=== PATIENT | male | born 1950 | race Caucasian/White ===

== ENCOUNTER → 2024-04-25 | Outpatient (CLI) | payer MEDICARE, SELFPAY ==
[2024-04-25 20:39] LABS: AST(SGOT) 29 U/L (15-37); Alanine Aminotransfer ALT/SGPT 31 U/L (16-61); Albumin, Serum 3.8 g/dL (3.2-5.0); Alkaline Phosphatase 78 U/L (45-117); Anion Gap 5 (5-15); BUN 17 mg/dL (7-18); BUN/Creat Ratio 13.4 RATIO (10-20); Chloride 105 mmol/L (98-107); Cholesterol 170 mg/dL (200); Creatinine, Serum 1.27 mg/dL (0.70-1.30); EST Glomerular Filtration Rate 59 mL/min (>60); Est Glom Filt Rate - Afr Amer 71 mL/min (>60); Globulin 3.8 g/dL (2.2-4.2); Glucose 93 mg/dL (74-106); High Density Lipoprotein 73 mg/dL; Potassium 4.6 mmol/L (3.5-5.1); Protein, Total 7.6 g/dL (6.4-8.2); Sodium Level 137 mmol/L (136-145); Triglycerides 159 mg/dL; Very Low Density Lipoprotein 32 mg/dL (5-40)
== END | disposition home or self-care (01) ==
LOC: MFPLAB 09:41
PROVIDERS: PCP Family Medicine; Referring Provider Family Medicine; Visit Provider Family Medicine
DX: Z00.00 Encounter for general adult medical examination without abnormal findings (principal); E78.5 Hyperlipidemia, unspecified; Z12.5 Encounter for screening for malignant neoplasm of prostate
CPT/HCPCS: 36415; 80053; 80061; 84153; G0103

== ENCOUNTER → 2024-05-12 | Outpatient (CLI) | payer MEDICARE, SELFPAY ==
[2024-05-15 08:08] LABS: PSA, Free 3.99 ng/mL; PSA, Free % 25.4 % (.)
== END | disposition home or self-care (01) ==
LOC: LAB 14:03
PROVIDERS: PCP Family Medicine; Referring Provider Nurse Practitioner; Visit Provider Nurse Practitioner
DX: R97.20 Elevated prostate specific antigen [PSA] (principal)
CPT/HCPCS: 36415; 84153; 84154

== ENCOUNTER 2024-06-07 16:47 | Outpatient (CLI) | payer MEDICARE, SELFPAY ==
--- NOTE | 2024-06-07 08:00 | PROSBIL_PTH ---
PATIENT: DELMI BERGER LOC: [facility] U#:[id number] AGE/SX: 73/M ROOM: RE06/07/[address]: Dr. Lenny Herndon MD : [id number] BED: DIS: 06/07/2024 SPEC #: [id number] RECD: 06/08/24 08:58 STATUS: VERA ERI #: [id number] LUTHER: 06/07/24 08:[address]: Lenny Herndon DEPT: SURGICAL PATHOLOGY RECD BY: Rolando Garcia ENTERED: 06/08/24 08:58 SP TYPE: PROST BX MAXIMO DR: Dr. Sherwin Nichols MD Tissues: A - PROSTATE RIGHT B - PROSTATE RIGHT C - PROSTATE LEFT D - PROSTATE LEFT Procedures: PROSTATE BX HEADER OPERATION: Prostate biopsy PRE-OP DIAGNOSIS: Elevated PSA TISSUE SUBMITTED: A - Right mid, B - Right base, C -Left mid, D- Left base MICROSCOPIC DIAGNOSIS A. Prostate, right mid, biopsy: - Benign prostate tissue. B. Prostate, right base, biopsy: - Benign prostate tissue. C. Prostate, left mid, biopsy: - Benign prostate tissue. D. Prostate, left base, biopsy: - Benign prostate tissue. MICROSCOPIC DESCRIPTION Slides are reviewed. GROSS DESCRIPTION A. Received in formalin in a container labeled with the patient's name, date of , and right mid is a 1.1 x 0.1 cm white-castillo and wispy core biopsy of soft tissue. Submitted in toto in A1. B. Received in formalin in a container labeled with the patient's name, date of , and right base is a 1.5 x 0.1 cm white-castillo and wispy core biopsy of soft tissue. Submitted in toto in B1. C. Received in formalin in a container labeled with the patient's name, date of , and left mid are 2 white-castillo, wispy core biopsies of soft tissue measuring 0.9 x 0.1 cm and 1.2 x 0.1 cm. Submitted in toto in C1. D. Received in formalin in a container labeled with the patient's name, date of , and left base is a 1.3 x 0.1 cm white-castillo and wispy core biopsy of soft tissue. Submitted in toto in D1. [facility] 06-08-2024 CPT:74238q6
== END 2024-06-07 23:59 | disposition home or self-care (01) ==
LOC: LABSPEC 16:48
PROVIDERS: PCP Family Medicine; Referring Provider Urology; Visit Provider Urology
DX: N40.0 Benign prostatic hyperplasia without lower urinary tract symptoms (principal)
CPT/HCPCS: 88305; G0416

== ENCOUNTER → 2024-07-29 | Outpatient (CLI) | payer MEDICARE, SELFPAY ==
[2024-07-29 10:56] LABS: Absolute Lymphocyte Count 0.97 X10^3/uL (0.83-4.51); Basophil# 0.04 X10^3/uL; Basophil% 0.7 % (0-1); Eosinophil# 0.18 X10^3/uL; Eosinophils% 3.2 % (0-5); Hematocrit 43.2 % (40-54); Hemoglobin 14.8 g/dL (13.0-16.5); Lymphocyte # 0.97 X10^3/ul (0.83-4.51); Mean Corp Hgb Conc 34.3 g/dL (32-36); Mean Corpuscular Volume 90.4 fL (80-94); Mean Platelet Vol. 9.6 fl (6.2-12.0); Monocyte% 8.8 % (0-10); NRBC Flagged by Analyzer 0 % (0-5); Neutrophil % 70.1 % (47-70); Platelet Count 161 K/mm3 (150-450); RBC Distribution Width CV 13.6 % (11.6-14.6); RBC Distribution Width SD 45.6 fl (35.1-43.9); Red Blood Count 4.78 M/mm3 (4.6-6.2); White Blood Count 5.7 K/mm3 (4.4-11.0)
[2024-07-29 11:27] LABS: ALB/GLOB Ratio 1.5 RATIO (0.9-2.4); AST(SGOT) 32 U/L (<=37); Alanine Aminotransfer ALT/SGPT 23 U/L (<=46); Albumin, Serum 4.3 g/dL (3.4-4.8); Alkaline Phosphatase 73 U/L (40-129); Anion Gap 9 (5-15); BUN 18 mg/dL (4-19); BUN/Creat Ratio 13.4 RATIO (10-20); Calcium,Total 9.3 mg/dL (7.6-11.0); Carbon Dioxide 22.5 mmol/L (21.0-32.0); Chloride 101 mmol/L (98-108); Cholesterol 162 mg/dL (<=200); Creatinine, Serum 1.31 mg/dL (0.70-1.20); EST Glomerular Filtration Rate 56 (>60); Globulin 2.8 g/dL (2.2-4.2); Glucose 111 mg/dL (70-99); High Density Lipoprotein 67 mg/dL; Low Density Lipoprotein Calc. 69 mg/dL; Potassium 4.8 mmol/L (3.3-5.1); Protein, Total 7.2 g/dL (5.9-8.4); Sodium Level 133 mmol/L (133-145); Total Bilirubin 0.62 mg/dL (0.00-1.30); Triglycerides 131 mg/dL; Very Low Density Lipoprotein 26 mg/dL (5-40); cholesterol:hdl ratio screen 2.41
== END | disposition home or self-care (01) ==
LOC: MFPLAB 08:58
PROVIDERS: PCP Family Medicine; Visit Provider Family Medicine
DX: Z01.818 Encounter for other preprocedural examination (principal); E78.5 Hyperlipidemia, unspecified
CPT/HCPCS: 36415; 80053; 80061; 85025

== ENCOUNTER → 2024-08-11 | Outpatient (CLI) | payer MEDICARE, SELFPAY ==
--- NOTE | 2024-08-11 16:05 | RAD_ITS ---
PROCEDURE: CHEST PA AND LATERAL 08/11/2024 REASON FOR EXAM: PRE OP EXAMINATION TECHNIQUE: Frontal and lateral views of the chest. COMPARISON: None. FINDINGS: The lungs are expanded. There is no demonstrated parenchymal abnormality. There is no demonstrated pleural abnormality. Enlarged cardiac silhouette. Normal mediastinum and uriel. Normal visualized pulmonary arteries. Atheromatous plaques of the visualized aortic arch and descending thoracic aorta. Diffuse spondylosis of the visualized thoracic spine. Normal visualized ribs, clavicles. Degenerative joint disease. There is no demonstrated abnormality of the visualized soft tissue structures of the upper abdomen. RAD/Chest PA and Lateral IMPRESSION: No evidence for acute abnormality. Reading Location: [facility]
[2024-08-11 18:04] LABS: Anion Gap 13 (5-15); BUN 19 mg/dL (4-19); BUN/Creat Ratio 14.2 RATIO (10-20); Calcium,Total 9.1 mg/dL (7.6-11.0); Carbon Dioxide 22.3 mmol/L (21.0-32.0); Chloride 104 mmol/L (98-108); Creatinine, Serum 1.34 mg/dL (0.70-1.20); EST Glomerular Filtration Rate 55 (>60); Glucose 133 mg/dL (70-99); Sodium Level 139 mmol/L (133-145)
[2024-08-11 18:16] LABS: International Normalized Ratio 1.1; Prothrombin Time (Protime)PT. 14.5 SECONDS (11.7-14.9)
[2024-08-11 18:17] LABS: Partial Thromboplast Time 38.4 Seconds (24.1-36.2)
[2024-08-11 20:30] LABS: Specific Gravity, Urine 1.025 (1.002-1.030)
--- OUTSIDE RECORDS SUMMARY | 2024-08-11 21:24 | XMS RPT_ITS | CCD ---
Author Organization [facility] Care Team Providers Care Nuclear Design Engineer Name Role Phone Sherwin Pollock Unavailable [phone] Mary Busby Unavailable Mary Busby Primary Care Provider Mary Busby Unavailable Mary Busby Primary Care Provider Mary Busby Unavailable Mary Busby MD Primary Care Provider Mary Busby MD Unavailable [phone] Mary Busby MD Unavailable Sherwin Nichols MD Primary Care Provider [phone] Mary Busby MD Unavailable Mary Busby MD Unavailable Sherwin Nichols MD Primary Care Provider [phone] Mary Busby MD Unavailable Sherwin Nichols MD Primary Care Provider ANGELICA RESENDIZ DO Consulting Unavailable SIMONE R~[id number], SIMONE COURTNEY Primary Care Unavailable VALENTIN MERCADO~[id number], VALENTIN Marshall Attending Unavailable VALENTIN MERCADO~[id number], VALENTIN Marshall Admitting Unavailable ANGELICA RESENDIZ DO Consulting Unavailable SHERWIN CORNELIUS Consulting Unavailable SHERWIN CORNELIUS Consulting Unavailable ANGELICA RESENDIZ DO Consulting Unavailable SIMONE Powell~[id number], SIMONE COURTNEY Primary Care Unavailable SRIRAM YAN DR~[id number] GOOD Hassan Attending Unavailable SRIRAM YAN DR~[id number] GOOD Hassan Admitting Unavailable ANGELICA RESENDIZ DO Consulting Unavailable SRIRAM YAN, DR GOOD Hassan Consulting Unavaildyllan BHATIA MD, DR GOOD Hassan Consulting UnavailSHERWIN Woods Consulting Unavailable SIMONE R, SHERWIN Consulting Unavailable NADIA VANG APRN Consulting Unavailable BIRGIT YAN~[id number], BIRGIT Gomez Attending Unavailable BIRGIT YAN~[id number], BIRGIT Gomez Admitting Unavailable NONE NONE, NONE~[id number] NONE Primary Care Unavailable NADIA VANG APRN Consulting Unavailable ANGELICA RESENDIZ DO Consulting Unavailable ANGELICA RESENDIZ DO Consulting Unavailable SORTO DO, MICHAEL K Consulting Unavailable SORTO DO, MICHAEL K Consulting Unavailable NONE NONE, NONE~[id number] NONE Consulting Unavailable NONE, NONE Consulting Unavailable CINTHIA YAN, DR SANTAMARIA Consulting Unavailable CINTHIA YAN, DR SANTAMARIA Consulting Unavailable KATIE YAN, GARIMA Consulting Unavailable KATIE YAN, GARIMA Consulting Unavailable ISABELLA GENAO MD Consulting Unavailable ISABELLA GENAO MD Consulting Unavailable HO LYLES MD Consulting Unavailable HO LYLES MD Consulting Unavailable ANA HAMILTON MD Consulting Unavailable NICHOLS R~[id number], SIMONE COURTNEY Attending Unavailable NICHOLS R~[id number], SIMONE COURTNEY Primary Care Unavailable NICHOLS R~[id number], SIMONE COURTNEY Admitting Unavailable ANA HAMILTON MD Consulting Unavailable NICHOLS RSHERWIN Consulting Unavailable NICHOLS R, SHERWIN Consulting Unavailable NICHOLS R~[id number], SIMONE COURTNEY Primary Care Unavailable JAKE YAN~[id number], JAKE Jefferson Admitting Unavailable JAKE YAN~[id number], JAKE Jefferson Attending Unavailable SIMONE R, SHERWIN Consulting Unavailable NICHOLS R, SHERWIN Consulting Unavailable ANGELICA RESENDIZ DO Consulting Unavailable NICHOLS R~[id number], SIMONE COURTNEY Primary Care Unavailable SRIRAM YAN DR~[id number] GOOD Hassan Admitting Unavailable SRIRAM YAN DR~[id number] GOOD Hassan Attending Unavailable ANGELICA RESENDIZ DO Consulting Unavailable SRIRAM YAN, DR GOOD Hassan Consulting Unavaildyllan BHATIA MD, DR GOOD Hassan Consulting Unavaildyllan e SIMONE RSHERWIN Consulting Unavailable NICHOLS R, SHERWIN Consulting Unavailable DAVID YAN, VALERIE FATIMA Consulting Hali SHELTON MD, VALERIE FATIMA Consulting Hali Nichols MD, Dr. Courtney Primary Care Provider Simone YAN, Dr. Courtney Attending Provider Simone YAN, Dr. Courtney Referring Provider [phone] Simone YAN, Dr. Courtney Primary Care Provider Simone YAN, Dr. Courtney Attending Provider Simone YAN, Dr. Courtney Referring Provider Boutte, Magalie Attending Provider Boutte, Magalie Referring Provider SYSTEM, PROVIDER NOT IN Referring Unavaila ble SYSTEM, PROVIDER NOT IN Admitting Unavaila ble SHERWIN NICHOLS Primary Care Unavailable Yanick YAN, Dr. Lenny Nuñez Attending Provider [phone] Yanick YAN, Dr. Lenny Nuñez Referring Provider [phone] Simone YAN, Sherwin Powell Primary Care Provider [phone] Angelica Resendiz DO Unavailable Angelica Resendiz DO Unavailable [phone] SUNIL DELACRUZ Attending Unavailable SELF, SELF Referring Unavailable KRYS DELACRUZATORWard Hall Attending Unavailable SUNIL DELACRUZ Referring Unavailable NICHOLSSHERWIN DEAN Primary Care Unavailable SUNIL DELACRUZ Admitting Unavailable SUNIL DELACRUZ Attending Unavailable SELF, SELF Referring Unavailable ENLIV GOFFSHUA TMark Referring Unavailable AMRIK GUZMAN Attending Unavailable SHERWIN NICHOLS Primary Care Unavailable Nichols, Sherwin Primary Care Unavailable Nichols, Sherwin Attending Unavailable Nichols, Sherwin Referring Unavailable Nichols, Sherwin Primary Care Unavailable BoutteMagalie Attending Unavailable BoutteMagalie Referring Unavailable Lenny Herndon Attending Unavailable Lenny Herndon Referring Unavailable Nichols, Sherwin Primary Care Unavailable Nichols, Sherwin Primary Care Unavailable Nichols, Sherwin Attending Unavailable NICHOLSSHERWIN Primary Care Unavailable PEGGY JONES Attending Unavail able PEGGY JONES Admitting Unavail able IVETTE PULIDO Attending Unavailable NICHOLS, SHERWIN ANGELICA Primary Care Unavailable IVETTE PULIDO Attending Unavailable SHERWIN NICHOLS Primary Care Unavailable BOSTON HERRERA Attending Unavailable SHERWIN NICHOLS Primary Care Unavailable SATHYA OSORIO Attending Unavailable SHERWIN NICHOLS Primary Care Unavailable IVETTE PULIDO Attending Unavailable SHERWIN NICHOLS Primary Care Unavailable Allergies Allergy Classification Reported Allergen(s) Allergy Type Date of Onset Reaction(s) Facility (20 sources) Penicillins; Translations: [PENICILLINS] Propensity to adverse reactions to drug 6 Hives [facility] (2 sources) Penicillins Propensity to adverse reactions to drug 9 [facility] (20 sources) atorvastatin; Translations: [ATORVASTATIN] Drug Allergy 6 Unknown, Other (See Comments) [facility] (13 sources) Penicillins Propensity to adverse reactions to drug 9 Itching [facility] (1 source) atorvastatin Drug Allergy 6 [facility] (1 source) Penicillins Drug allergy (disorder) 9 [facility] (5 sources) Penicillins Propensity to adverse reactions to drug 9 Itching [facility] (1 source) Penicillins Drug allergy (disorder) 6 [facility] Medications Current Medications Medication Drug Class(es) Dates Sig (Normalized) Sig (Original) acetaminophen 325 mg / HYDROcodone bitartrate 5 mg oral tablet (10 sources) Opioid Agonist Start: 03-28-2022 HYDROcodone-acetam inophen (NORCO) 5-325 mg per tablet Indications: Post-op pain Take 1-2 tablets every 6 hours as needed for pain. . 56 tablet 03/28/2022 Active Start: 03-22-2022 End: 03-28-2022 HYDROcodone-acetaminophen (N ORCO) 5-325 mg per tablet Indications: Acute post-operative pain Take 1 (one) tablet to 2 (two) tablets by mouth every 6 (six) hours as needed for pain (Days supply per fill: 7) . 56 tablet 0 03/22/2022 03/28/2022 Discontinued (Availability) acetaminophen 325 mg / oxyCODONE hydrochloride 5 mg oral tablet (8 sources) Opioid Agonist Start: 02-11-2019 End: 02-16-2019 take 1 tablet by mouth every six hours as needed for pain, then take 5 tablets by mouth as needed for pain oxyCODONE-acetaminophen (PERCOCET) 5-325 mg per tablet Indications: Post-op pain , Right groin pain Take 1 (one) tablet by mouth every 6 (six) hours as needed for pain (Days supply per fill: 5) . 15 tablet 0 02/11/2019 02/16/2019 Active Start: 07-15-2015 End: 02-11-2019 Oxycodone-Acetaminophen 1 TA BLET tablet Active 1 - 2 {tbl} PO EVERY 4 HOURS NEEDED as needed for Pain July 19, 2015 12:00am amLODIPine 10 mg oral tablet (20 sources) Dihydropyridine Calcium Channel Mary take 1 tablet by mouth once daily in the morning amLODIPine (NORVASC) 10 MG tablet Take 1 (one) tablet (10 mg total) by mouth every morning . Active take 1 tablet by mouth once durga y amLODIPine 5 MG tablet Take 1 tablet by mouth daily. Active amLODIPine 5 mg / benazepril hydrochloride 10 mg oral capsule (3 sources) Dihydropyridine Calcium Channel Mary, Angiotensin Converting Enzyme Inhibitor Start: 07-19-2015 Amlodipine-Benazepril 1 EACH capsule Active 1 NMA PO DAILY July 19, 2015 12:00am apixaban 2.5 mg oral tablet (2 sources) Factor Xa Inhibitor Start: 12-08-2020 take 1 tablet by mouth every twelve hours apixaban 2.5 MG tablet Indications: post pci per Dr Bhatia not for atrial fibrillation Take 1 tablet by mouth every 12 hours. 60 tablet 12/08/2020 Active ascorbic acid 1000 mg oral tablet (17 sources) Vitamin C take 1 tablet by mouth once daily in the morning ascorbic acid, vitamin C, (VITAMIN C) 1000 MG tablet Take 1 (one) tablet (1,000 mg total) by mouth every morning . Active take 2 tablets by mouth once geovanna ly ascorbic acid 500 MG tablet Take 1,000 mg by mouth daily. Active aspirin 81 mg chewable tablet (20 sources) Nonsteroidal Anti-inflammatory Drug Start: 07-19-2015 End: 05-03-2022 take 1 tablet by mouth once daily Aspirin 81 MG tablet,chewable Active 81 mg PO DAILY@0800 July 19, 2015 12:00am End: 02-11-2019 take 1 tablet by mouth once daily aspirin 81 MG EC tablet Take 81 mg by mouth daily . 0 02/11/2019 Discontinued (Stop Taking at Discharge) cholecalciferol 0.05 mg oral tablet (15 sources) Vitamin D take 1 tablet by mouth once daily in the morning cholecalciferol, vitamin D3, 50 mcg (2,000 unit) Tab Take 1 (one) tablet (2,000 Units total) by mouth every morning . Active ciprofloxacin 500 mg oral tablet (1 source) Quinolone Antimicrobial Start: End: take 1 tablet by mouth every twelve hours ciprofloxacin HCl (CIPRO) 500 MG tablet Take 500 mg by mouth every 12 (twelve) hours . 0 06/24/2018 08/24/2018 Active clopidogrel 75 mg oral tablet (20 sources) P2Y12 Platelet Inhibitor Start: End: take 1 tablet by mouth once daily in the morning clopidogreL (PLAVIX) 75 mg tablet Take 1 (one) tablet (75 mg total) by mouth every morning Start: 04/03/22. 30 tablet 04/03/2022 Active docusate sodium 50 mg / sennosides, mcfp 8.6 mg oral tablet (2 sources) Start: End: take 1 tablet by mouth twice daily senna-docusate (SENNA-S) 8.6-50 mg Take 1 (one) tablet by mouth 2 (two) times a day . 60 tablet 0 03/22/2022 04/21/2022 Active doxycycline hyclate 100 mg oral capsule (3 sources) Tetracycline-class Drug Start: take 1 capsule by mouth twice daily Doxycycline Hyclate 100 MG capsule Active 100 mg PO TWICE A DAY July 15, 2015 12:00am escitalopram 10 mg oral tablet (20 sources) Serotonin Reuptake Inhibitor take 1 tablet by mouth once daily in the morning escitalopram oxalate (LEXAPRO) 10 MG tablet Take 1 (one) tablet (10 mg total) by mouth every morning . Active famotidine 20 mg oral tablet (3 sources) Histamine-2 Receptor Antagonist Start: take 1 tablet by mouth once daily Famotidine 20 MG tablet Active 20 mg PO DAILY July 19, 2015 12:00am lisinopril 10 mg oral tablet (20 sources) Angiotensin Converting Enzyme Inhibitor Start: take 1 tablet by mouth once daily Lisinopril 10 MG tablet Active 10 mg PO DAILY July 19, 2015 12:00am LORazepam 0.5 mg oral tablet (3 sources) Benzodiazepine Start: take 1 tablet by mouth three times daily as needed for anxiety Lorazepam 0.5 MG tablet Active 0.5 mg PO THREE TIMES A DAY as needed for Anxiety July 19, 2015 10:56pm lutein 10 mg oral tablet (2 sources) Lutein 10 MG tab let Take by mouth. Active magnesium oxide 400 mg oral tablet (17 sources) take 1 tablet by mouth once daily in the morning magnesium oxide (MAG-OX) 400 mg (241.3 mg magnesium) tablet Take 1 (one) tablet (400 mg total) by mouth every morning . Active 24 hr metoprolol succinate 25 mg extended release oral tablet (20 sources) beta-Adrenergic Mary Start: Metoprolol Succinate 25 MG tablet Active 12.5 mg PO DAILY July 19, 2015 12:00am take 1 tablet by shelia th once daily in the morning metoprolol succinate (TOPROL-XL) 25 MG 2 4 hr tablet Take 1 (one) tablet (25 mg total) by mouth every morning . Active nitroglycerin 0.4 mg sublingual tablet (4 sources) Nitrate Vasodilator Start: 12-08-2020 nitroGLYCERIN 0.[address] 1 tablet under tongue every 5 minutes as needed for Chest pain. max = 3 doses. If CP persists after 1st dose, call 911 25 tablet 1 12/08/2020 Active NONFORMULARY (6 sources) take 1 tablet by mouth once daily in the morning NONFORMULARY Take 1 tablet by mouth every morning Ceralin Forte . 0 Active pantoprazole 40 mg delayed release oral tablet (5 sources) Proton Pump Inhibitor Start: 07-19-2015 take 1 tablet by mouth once daily pantoprazole [address] tablet DR Indications: triple therapy Take 1 tablet by mouth daily. 30 tablet 12/08/2020 Active 12 hr ranolazine 500 mg extended release oral tablet (2 sources) Anti-anginal take 1 tablet by mouth twice daily Ranolazine 500 MG Tab SR 12 HR tablet Take 500 mg by mouth 2 times daily. Active rosuvastatin calcium 20 mg oral tablet (3 sources) HMG-CoA Reductase Inhibitor Start: 07-19-2015 take 1 tablet by mouth once daily Rosuvastatin (Crestor) 20 MG tablet Active 20 mg PO DAILY July 19, 2015 12:00am Saw Luigi Sancheza shon, (SAW PALMETTO BERRIES PO) (2 sources) Saw [place], Serenoa repeleticia, (SAW PALMETTO BERRIES PO) Take by mouth. He is unclear on dosing type or frequency of this medication Active ubidecarenone 100 mg / vitamin e 5 unt oral capsule (2 sources) take 1 capsule by mouth once Coenzyme Q10 (Co Q-10) 100 MG capsule Take by mouth. Active ubidecarenone/vitam in E mixed (COQ10 SG 100 ORAL) (6 sources) take 1 tablet by mouth once daily in the morning ubidecarenone/vitami n E mixed (COQ10 SG 100 ORAL) Take 1 tablet by mouth every morning . 0 Active vitamin b12 0.1 mg oral tablet (8 sources) Vitamin B12 take 1 tablet by mouth once daily cyanocobalamin 100 MCG tablet Take 1 tablet by mouth daily. He is not sure of the dose Active take 1 tablet by shelia th once daily in the morning cyanocobalamin (B-12) 1000 MCG tablet Ta ke 1 (one) tablet (1,000 mcg total) by mouth every morning . 0 Active Zinc (15 sources) take 1 tablet by shelia th once daily in the morning zinc 50 mg Tab Take 1 (one) tablet (50 mg total) by mouth every morning . Active take 1 tablet by shelia th once daily in the morning zinc 50 mg Tab Take 1 (one) tablet (50 m g total) by mouth every morning . 0 Active zinc gluconate 50 mg oral ta blet (2 sources) Zinc 50 MG table t Take by mouth. He is not sure of the type/dose Active Completed/Discontinued Medications Medication Drug Class(es) Dates Sig (Normalized) Sig (Original) calcium chloride 0.0014 meq/ml / potassium chloride 0.004 meq/ml / sodium chloride 0.103 meq/ml / sodium lactate 0.028 meq/ml injectable solution (3 sources) Start: 02-11-2019 End: 02-11-2019 take 100 mL intravenous route every hour 100 mL/hr, Intravenous, Continuous, Starting Thu02/11/19 at 1030, PACU (only) Start: 02-11-2019 End: 02-11-2019 lactated Ringers infusion Start: 07-20-2018 End: 07-20-2018 lactated Ringers infusion 1 ml evolocumab 140 mg/ml prefilled syringe (20 sources) PCSK9 Inhibitor Start: 04-27-2018 End: 01-12-2019 REPATHA SYRINGE 140 mg/mL Syrg every 14 (fourteen) days . 0 04/27/2018 01/12/2019 Discontinued (Therapy completed) inject 1 mL by subcutaneous inje ction once evolocumab 140 mg/mL Syrg Inject 1 mL (140 mg total) under the skin every 14 (fourteen) days . Active Evolocumab (Repa braden) 140 MG/ML Solution Prefilled Syringe injection Inject under the skin every 14 days. Active evolocumab 140 m g/mL Syrg Inject under the skin every 14 (fourteen) days . 0 Active gabapentin 300 mg oral capsule (2 sources) Anti-epileptic Agent End: 06-28-2018 gabapentin (NEURONTIN) 300 MG capsule Take 300 mg by mouth daily (Days supply per fill: {30) . 0 06/28/2018 Discontinued take 1 capsule by mouth once geovanna ly gabapentin (NEURONTIN) 300 MG capsule Take 300 mg by mouth daily (Days supply per fill: {30) . Active 1 ml HYDROmorphone hydrochloride 1 mg/ml injection (1 source) Opioid Agonist Start: 02-11-2019 End: 02-11-2019 0.5 mg, Intravenous, Every 5 min PRN, Pain, Starting Thu02/11/19 at 0942, For 6 doses, PACU (only) [] Give if fentanyl not effective or not ordered. [] Do not give more than 3 mg total. iohexol (OMNIPAQUE) 350 MG/ML injection 1-171 mL (1 source) Start: 07-05-2024 End: 07-05-2024 1-171 mL, Intravenous, ONCE, 1 dose, On Thu07/05/24 at 0815, Extravasation Risk, CT Procedure 4 ml labetalol hydrochloride 5 mg/ml cartridge (1 source) beta-Adrenergic Mary Start: 02-11-2019 End: 02-11-2019 5 mg, Intravenous, Every 5 min PRN, SBP greater than 180 or DBP greater than 120, Starting Thu02/11/19 at 0942, For 4 doses, PACU (only) [] Do not give more than 20 mg total. [] Hold for HR less than 50. Meperidine (1 source) Opioid Agonist Start: 02-11-2019 End: 02-11-2019 12.5 mg, Intravenous, Every 5 min PRN, shivering, Starting Thu02/11/19 at 0942, For 2 doses, PACU (only) Do not give more than 25 mg total. RESTRICTED to use in rigors OR pain management in patients with a documented opioid allergy. Please select this medication s indication. Rigors naloxone (NARCAN) injection 0.1 mg (1 source) Start: 02-11-2019 End: 02-11-2019 naloxone (NARCAN) injection 0.1 mg 2 ml ondansetron 2 mg/ml injection (7 sources) Serotonin-3 Receptor Antagonist Start: 02-11-2019 End: 02-11-2019 take 4 mg intravenous route every twenty-four hours as needed 4 mg, Intravenous, Once as needed, nausea, vomiting, Starting Thu02/11/19 at 0942, For 1 dose, PACU (only) Administer first as needed for nausea/vomiting, or as directed by anesthesia Start: 07-19-2015 take 1 tablet by shelia th every eight hours as needed for nausea Ondansetron 4 MG tablet Active 4 mg PO EVERY 8 HOURS NEEDED as needed for Nausea July 19, 2015 12:00am 2 ml prochlorperazine 5 mg/ml injection (1 source) Phenothiazine Start: 02-11-2019 End: 02-11-2019 2.5 mg, Intravenous, Every 1 5 min PRN, nausea, Starting Thu02/11/19 at 0942, For 2 doses, PACU (only) Administer if ondansetron (Zofran), promethazine (Phenergan), and Metocolopramide (Reglan) ineffective or not ordered, or as directed by anesthesia, as needed for nausea/vomiting Do not give more than 2 doses. 1000 ml sodium chloride 9 mg/ml injection (1 source) Start: 07-05-2024 End: 07-05-2024 Intravenous, at 10 mL/hr, CONTINUOUS, Starting on Thu07/05/24 at 0830, Until Thu07/05/24 at 1537, KVO fluids, start the morning of procedure., Pre-op/Pre-Proc Problems Active Problems Problem Classification Problem Date Documented Date Episodic/Chronic Cardiac dysrhythmias (9 sources) Paroxysmal atrial fibrillation; Translations: [Paroxysmal atrial fibrillation] Onset: 4 Chronic Coagulation and hemorrhagic disorders (20 sources) Blood coagulation disorder; Translations: [Coagulation defect, unspecified] Onset: 9 06-28-2018 Chronic Coronary atherosclerosis and other heart disease (20 sources) Coronary arteriosclerosis; Translations: [Atherosclerotic heart disease of [place] coronary artery without angina pectoris] Onset: 9 06-28-2018 Chronic Disorders of lipid metabolism (7 sources) Hyperlipidemia; Translations: [Hyperlipidemia, unspecified] Onset: 4 Chronic Esophageal disorders (20 sources) Gastroesophageal reflux disease; Translations: [Gastro-esophageal reflux disease without esophagitis] Onset: 9 06-28-2018 Chronic Essential hypertension (20 sources) Essential hypertension; Translations: [Essential (primary) hypertension] Onset: 9 06-28-2018 Chronic Headache; including migraine (6 sources) Headache disorder; Translations: [Other headache syndrome] Onset: 5 03-09-2023 Episodic Inflammatory conditions of male genital organs (3 sources) Epididymitis; Translations: [Epididymitis] 07-17-2015 Episodic Malaise and fatigue (1 source) Fatigue; Translations: [Other fatigue] Episodic Miscellaneous mental health disorders (1 source) Psychophysiologic insomnia; Translations: [PSYCHOPHYSIOLOGIC INSOMNIA] Onset: 4 Chronic Other and unspecified benign neoplasm (6 sources) Benign neoplasm of brain; Translations: [Benign neoplasm of brain, unspecified] Chronic Other male genital disorders (3 sources) Pain of right testicle; Translations: [Right testicular pain] 06-27-2015 Episodic Other nervous system disorders (20 sources) Cerebral cyst; Translations: [Cerebral cysts] Onset: 0 10-01-2017 Chronic Other nervous system disorders (3 sources) Mass lesion of brain; Translations: [Other specified disorders of brain] Chronic Other nervous system disorders (4 sources) Cerebral cysts; Translations: [Cerebral cysts] Onset: 5 Chronic Other nervous system disorders (2 sources) Postoperative pain ; Translations: [Other acute postprocedural pain] Episodic Other skin disorders (1 source) Localized swelling, mass and lump, head; Translations: [LOCALIZED SWELLING MASS AND LUMP HEAD] Onset: 5 Episodic Residual codes; unclassified (2 sources) Other amnesia; Translations: [OTHER AMNESIA] Onset: 5 Episodic Unclassified (4 sources) Screening status; Translations: [Encounter for screening colonoscopy] Onset: 9 06-28-2018 Unclassified (8 sources) Patient encounter status; Translations: [Encounter for screening colonoscopy] Onset: 9 06-29-2018 Unclassified (1 source) Chronic atrial fibrillation, unspecified; Translations: [CHRONIC ATRIAL FIBRILLATION UNSPEC] Onset: 4 Past or Other Problems Problem Classification Problem Date Documented Da te Episodic/Chronic Abdominal hernia (20 sources) Right inguinal hernia ; Translations: [Unilateral inguinal hernia, without obstruction or gangrene, not specified as recurrent] Onset: 01-12-2019 01-12-2019 Episodic Abdominal pain (20 sources) Inguinal pain; Translations: [Right lower quadrant pain] Onset: 06-28-2018 06-28-2018 Episodic Complication of device; implant or graft (1 source) Stenosis of coronary artery stent, initial encounter; Translations: [STENOSIS CORONARY ARTERY STENT INIT] Onset: 2023 Episodic Coronary atherosclerosis and other heart disease (16 sources) History of placement of stent for coronary artery disease; Translations: [Coronary angioplasty status] Onset: 06-28-2018 06-28-2018 Episodic Mood disorders (5 sources) Mood disorders Onset: 03-21-2022 03-21-2022 Nonspecific chest pain (3 sources) Chest pain, unspecified; Translations: [CHEST PAIN UNSPECIFIED] Onset: 06-26-2023 Episodic Other aftercare (20 sources) Long-term current use of anticoagulant; Translations: [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 anticoagulants] Onset: 11-03-2018 11-03-2018 Episodic Other aftercare (20 sources) Surgical follow-up; Translations: [Encounter for follow-up examination after completed treatment for conditions other than malignant neoplasm] Onset: 02-28-2019 02-28-2019 Episodic Other aftercare (1 source) skilled nursing (current) use of anticoagulants; Translations: [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 CURRNT USE ANTICOAGULANTS] Onset: 11-04-2023 Episodic Other lower respiratory disease (3 sources) Snoring; Translations: [SNORING] Onset: 09-09-2023 Episodic Other nervous system disorders (20 sources) Disturbance in speech; Translations: [Other speech disturbances] Onset: 03-02-2003 Episodic Other screening for suspected conditions (not mental disorders or infectious disease) (20 sources) Patient encounter status; Translations: [Encounter for screening for malignant neoplasm of colon] Onset: 06-28-2018 06-29-2018 Episodic Screening and history of mental health and substance abuse codes (1 source) Personal history of nicotine dependence; Translations: [PERSONAL HISTORY OF NICOTINE DEPEND] Onset: 2023 Episodic Results Test Name Value Interpretation Reference Range Facility CBC W/Diff, Automatedon 07-02 Absolute Lymph 0.97 X10 3/uL Normal 0.83-4.51 [facility] Comment on above: Performed By: #### L 500.4050, L100.0100, L500.4100 #### [facility] [address] [place], [address] Absolute Neut 4.0 X10 3/uL Normal 2.0-7.7 [facility] Comment on above: Performed By: #### L 500.4050, L100.0100, L500.4100 #### [facility] [address] [place], [address] Basophils/100 WBC (Bld) 0.7 % Normal 0-1 [facility] Comment on above: Performed By: #### L 500.4050, L100.0100, L500.4100 #### [facility] [address] [place], [address] Eosinophils/100 WBC (Bld) 3.2 % Normal 0-5 [facility] Comment on above: Performed By: #### L 500.4050, L100.0100, L500.4100 #### [facility] [address] [place], [address] Erythrocyte distribution width (RBC) [Ratio] 13.6 % Normal 11.6-14.6 [facility] Comment on above: Performed By: #### L 500.4050, L100.0100, L500.4100 #### [facility] [address] [place], [address] Hematocrit (Bld) [Volume fraction] 43.2 % Normal 40-54 [facility] Comment on above: Performed By: #### L 500.4050, L100.0100, L500.4100 #### [facility] [address] [place], [address] Hemoglobin (Bld) [Mass/Vol] 14.8 g/dL Normal 13.0-16.5 [facility] Comment on above: Performed By: #### L 500.4050, L100.0100, L500.4100 #### [facility] [address] [place], [address] IG% 0.200 Normal 0.0-0.9 [facility] Comment on above: Result Comment: IG% - Immature Granulocytes (promyelocytes, myelocytes and metamyelocytes) > 1% indicates that a LEFT SHIFT is Present. Performed By: #### L 500.4050, L100.0100, L500.4100 #### [facility] [address] [place], [address] Lymphocytes/100 WBC (Bld) 17.0 % Low 19-41 [facility] Comment on above: Performed By: #### L 500.4050, L100.0100, L500.4100 #### [facility] [address] [place], [address] MCH (RBC) [Entitic mass] 31.0 pg Normal 27.0-32.0 [facility] Comment on above: Performed By: #### L 500.4050, L100.0100, L500.4100 #### [facility] [address] [place], [address] MCHC (RBC) [Mass/Vol] 34.3 g/dL Normal 32-36 [facility] Comment on above: Performed By: #### L 500.4050, L100.0100, L500.4100 #### [facility] [address] [place], [address] MCV (RBC) [Entitic vol] 90.4 fL Normal 80-94 [facility] Comment on above: Performed By: #### L 500.4050, L100.0100, L500.4100 #### [facility] [address] [place], [address] Monocytes/100 WBC (Bld) 8.8 % Normal 0-10 [facility] Comment on above: Performed By: #### L 500.4050, L100.0100, L500.4100 #### [facility] [address] [place], [address] Neutrophils/100 WBC (Bld) 70.1 % High 47-70 [facility] Comment on above: Performed By: #### L 500.4050, L100.0100, L500.4100 #### [facility] [address] [place], [address] Nucleated RBC (Bld) [#/Vol] 0 10*3/uL Normal 0-5 [facility] Comment on above: Performed By: #### L 500.4050, L100.0100, L500.4100 #### [facility] [address] [place], [address] Platelet mean volume (Bld) [Entitic vol] 9.6 fL Normal 6.2-12.0 [facility] Comment on above: Performed By: #### L 500.4050, L100.0100, L500.4100 #### [facility] [address] [place], [address] Platelets (Bld) [#/Vol] 161 10*3/uL Normal 150-450 [facility] Comment on above: Performed By: #### L 500.4050, L100.0100, L500.4100 #### [facility] [address] [place], [address] RBC (Bld) [#/Vol] 4.78 10*6/uL Normal 4.6-6.2 [facility] Comment on above: Performed By: #### L 500.4050, L100.0100, L500.4100 #### [facility] [address] [place], [address] RDW SD 45.6 fl High 35.1-43.9 [facility] Comment on above: Performed By: #### L 500.4050, L100.0100, L500.4100 #### [facility] [address] [place], [address] WBC (Bld) [#/Vol] 5.7 10*3/uL Normal 4.4-11.0 [facility] Comment on above: Performed By: #### L 500.4050, L100.0100, L500.4100 #### [facility] [address] [place], [address] Comprehensive Metabolic Prof [facility] 07-29-2024 Albumin [Mass/Vol] 4.3 g/dL Normal 3.4-4.8 [facility] Comment on above: Performed By: #### L 500.4050, L100.0100, L500.4100 #### [facility] [address] [place], [address] Albumin/Globulin [Mass ratio] 1.5 {ratio} Normal 0.9-2.4 [facility] Comment on above: Performed By: #### L 500.4050, L100.0100, L500.4100 #### [facility] [address] [place], [address] ALK PHOS 73 U/L Normal 40-129 [facility] Comment on above: Performed By: #### L 500.4050, L100.0100, L500.4100 #### [facility] [address] [place], [address] ALT [Catalytic activity/Vol] 23 U/L Normal <=46 [facility] Comment on above: Performed By: #### L 500.4050, L100.0100, L500.4100 #### [facility] [address] [place], [address] AST [Catalytic activity/Vol] 32 U/L Normal <=37 [facility] Comment on above: Performed By: #### L 500.4050, L100.0100, L500.4100 #### [facility] [address] [place], [address] Bilirubin [Mass/Vol] 0.62 mg/dL Normal 0.00-1.30 [facility] Comment on above: Performed By: #### L 500.4050, L100.0100, L500.4100 #### [facility] [address] [place], [address] BUN/CRE 13.4 RATIO Normal 10-20 [facility] Comment on above: Performed By: #### L 500.4050, L100.0100, L500.4100 #### [facility] [address] [place], [address] Calcium [Mass/Vol] 9.3 mg/dL Normal 7.6-11.0 [facility] Comment on above: Performed By: #### L 500.4050, L100.0100, L500.4100 #### [facility] [address] [place], [address] Chloride [Moles/Vol] 101 mmol/L Normal 98-108 [facility] Comment on above: Performed By: #### L 500.4050, L100.0100, L500.4100 #### [facility] [address] [place], [address] CO2 [Moles/Vol] 22.5 mmol/L Normal 21.0-32.0 [facility] Comment on above: Performed By: #### L 500.4050, L100.0100, L500.4100 #### [facility] [address] [place], [address] Creatinine [Mass/Vol] 1.31 mg/dL High 0.70-1.20 [facility] Comment on above: Performed By: #### L 500.4050, L100.0100, L500.4100 #### [facility] [address] [place], [address] GAP 9 Normal 5-15 [facility] Comment on above: Performed By: #### L 500.4050, L100.0100, L500.4100 #### [facility] [address] [place], [address] GFR/1.73 sq M.predicted among non-blacks MDRD (S/P/Bld) [Vol rate/Area] 56 mL/min/{1.73_m2} Low >60 [facility] Comment on above: Result Comment: mL/m in/1.73m2 CKD-EPI Creatinine Equation (2020) Performed By: #### L 500.4050, L100.0100, L500.4100 #### [facility] [address] [place], [address] Globulin (S) [Mass/Vol] 2.8 g/dL Normal 2.2-4.2 [facility] Comment on above: Performed By: #### L 500.4050, L100.0100, L500.4100 #### [facility] [address] [place], [address] Glucose [Mass/Vol] 111 mg/dL High 70-99 [facility] Comment on above: Performed By: #### L 500.4050, L100.0100, L500.4100 #### [facility] [address] [place], [address] Potassium [Moles/Vol] 4.8 mmol/L Normal 3.3-5.1 [facility] Comment on above: Performed By: #### L 500.4050, L100.0100, L500.4100 #### [facility] [address] [place], [address] Sodium [Moles/Vol] 133 mmol/L Normal 133-145 [facility] Comment on above: Performed By: #### L 500.4050, L100.0100, L500.4100 #### [facility] [address] [place], [address] T PROT 7.2 g/dL Normal 5.9-8.4 [facility] Comment on above: Performed By: #### L 500.4050, L100.0100, L500.4100 #### [facility] [address] [place], [address] Urea nitrogen [Mass/Vol] 18 mg/dL Normal 4-19 [facility] Comment on above: Performed By: #### L 500.4050, L100.0100, L500.4100 #### [facility] [address] [place], [address] Lipid Profileon 07-29-2024 CHOL:HDL 2.41 Normal [facility] Comment on above: Performed By: #### L 500.4050, L100.0100, L500.4100 #### [facility] [address] [place], [address] Cholesterol [Mass/Vol] 162 mg/dL Normal <=200 [facility] Comment on above: Result Comment: Chol esterol level, Desirable <200 mg/dL Borderline high cholesterol 200-239 mg/dL High cholesterol >=240 mg/dL Recommendations of the NCEP Adult Treatment Panel for the following risk-cutoff thresholds for the [place] population. Performed By: #### L 500.4050, L100.0100, L500.4100 #### [facility] [address] [place], [address] Cholesterol in HDL [Mass/Vol] 67 mg/dL Normal [facility] Comment on above: Result Comment: Sally onal Cholesterol Education Program (NCEP) guidelines: <40 mg/dL: Low HDL-cholesterol (major risk factor for CHD) >= 60 mg/dL: High HDL-cholesterol (negative risk factor for CHD) HDL-cholesterol is affected by a number of factors, e.g. smoking, exercise, hormones, sex and age. Performed By: #### L 500.4050, L100.0100, L500.4100 #### [facility] [address] [place], [address] Cholesterol in LDL [Mass/Vol] 69 mg/dL Normal [facility] Comment on above: Result Comment: Bord ouccam=196-537 mg/dL Higher Zrkq=673 mg/dL or greater Performed By: #### L 500.4050, L100.0100, L500.4100 #### [facility] [address] [place], [address] Cholesterol in VLDL [Mass/Vol] 26 mg/dL Normal 5-40 [facility] Comment on above: Performed By: #### L 500.4050, L100.0100, L500.4100 #### [facility] [address] [place], [address] Triglyceride [Mass/Vol] 131 mg/dL Normal [facility] Comment on above: Result Comment: The drugs N-Acetylcysteine and Metamizole may falsely depress this assay. Normal range: <150 mg/dL Borderline High: 150-199 mg/dL High: 200-499 mg/dL Very High: >500 mg/dL Performed By: #### L 500.4050, L100.0100, L500.4100 #### [facility] [address] [place], [address] CBC AND ELECTRONIC DIFFon Basophils (Bld) [#/Vol] K/uL 0.00 - 0.09 K/uL [facility] Basophils/100 WBC (Bld) 0.4 % [facility] Differential cell count method Nom (Bld) Electronic Differential [facility] Eosinophils (Bld) [#/Vol] 0.12 10*3/uL 0.00 - 0.48 K/uL [facility] Eosinophils/100 WBC (Bld) 2.2 % [facility] Erythrocyte distribution width (RBC) [Ratio] 13.7 % 10.9 - 14.3 % [facility] Hematocrit (Bld) [Volume fraction] 40.8 % 39.6 - 48.8 % [facility] Hemoglobin (Bld) [Mass/Vol] 13.8 g/dL 13.4 - 16.8 g/dL [facility] Immature granulocytes (Bld) [#/Vol] K/uL NINF - 0.07 K/uL [facility] Immature granulocytes/100 WBC (Bld) 0.4 % [facility] Interpretation and review of laboratory results Abnormal [facility] Lymphocytes (Bld) [#/Vol] 1.02 10*3/uL 0.83 - 3.57 K/uL [facility] Lymphocytes/100 WBC (Bld) 18.8 % [facility] MCH (RBC) [Entitic mass] 30.2 pg 26.1 - 33.3 pg [facility] MCHC (RBC) [Mass/Vol] 33.8 g/dL 31.9 - 36.5 g/dL [facility] MCV (RBC) [Entitic vol] 89.3 fL 79.0 - 94.5 fL [facility] Monocytes (Bld) [#/Vol] 0.61 10*3/uL 0.24 - 0.93 K/uL [facility] Monocytes/100 WBC (Bld) 11.2 % [facility] Neutrophils (Bld) [#/Vol] 3.65 10*3/uL 1.57 - 6.19 K/uL [facility] Nucleated RBC/100 WBC (Bld) [Ratio] 0 % NINF [facility] Platelet mean volume (Bld) [Entitic vol] 9.5 fL 8.7 - 12.3 fL [facility] Platelets (Bld) [#/Vol] 144 10*3/uL Low 146 - 337 K/uL [facility] RBC (Bld) [#/Vol] 4.57 10*6/uL [facility] Segmented neutrophils/100 WBC (Bld) 67 % [facility] WBC (Bld) [#/Vol] 5.44 10*3/uL 3.73 - 10.10 K/uL [facility] Abs Baso Auto < Normal 0.00-0.09 [facility] Comment on above: Performed By: #### L AB980 #### [facility] (DEFAULT) [address] [place] [address] Basophils/100 WBC (Bld) 0.4 % Normal [facility] Comment on above: Performed By: #### L [id number] #### [facility] (DEFAULT) [address] [address] DIFF STATUS Electronic Differential Normal [facility] Comment on above: Performed By: #### L [id number] #### [facility] (DEFAULT) [address] [place] [address] Eosinophils (Bld) [#/Vol] 0.12 10*3/uL Normal 0.00-0.48 [facility] Comment on above: Performed By: #### L [id number] #### [facility] (DEFAULT) [address] [address] Eosinophils/100 WBC (Bld) 2.2 % Normal [facility] Comment on above: Performed By: #### L [id number] #### [facility] (DEFAULT) [address] [address] Hematocrit (Bld) [Volume fraction] 40.8 % Normal 39.6-48.8 [facility] Comment on above: Performed By: #### L [id number] #### [facility] (DEFAULT) [address] [address] Hemoglobin (Bld) [Mass/Vol] 13.8 g/dL Normal 13.4-16.8 [facility] Comment on above: Performed By: #### L [id number] #### [facility] (DEFAULT) [address] [address] Immature Grans % 0.4 % Normal [facility] Comment on above: Performed By: #### L [id number] #### [facility] (DEFAULT) [address] [address] Immature Grans Absolute < Normal <=0.07 [facility] Comment on above: Performed By: #### L [id number] #### [facility] (DEFAULT) [address] [address] Lymphocytes (Bld) [#/Vol] 1.02 10*3/uL Normal 0.83-3.57 [facility] Comment on above: Performed By: #### L [id number] #### [facility] (DEFAULT) [address] [address] Lymphocytes/100 WBC (Bld) 18.8 % Normal [facility] Comment on above: Performed By: #### L [id number] #### [facility] (DEFAULT) [address] [address] MCV (RBC) [Entitic vol] 89.3 fL Normal 79.0-94.5 [facility] Comment on above: Performed By: #### L [id number] #### [facility] (DEFAULT) [address] [address] Mean Cell Hgb 30.2 pg Normal 26.1-33.3 [facility] Comment on above: Performed By: #### L [id number] #### [facility] (DEFAULT) [address] [address] Mean Cell Hgb Conc 33.8 g/dL Normal 31.9-36.5 [facility] Comment on above: Performed By: #### L AB980 #### [facility] (DEFAULT) [address] [address] Monocytes (Bld) [#/Vol] 0.61 10*3/uL Normal 0.24-0.93 [facility] Comment on above: Performed By: #### L [id number] #### [facility] (DEFAULT) [address] [address] Monocytes/100 WBC (Bld) 11.2 % Normal [facility] Comment on above: Performed By: #### L [id number] #### [facility] (DEFAULT) [address] [address] Nucleated RBC 0.0 /100 WBC Normal <=0.2 [facility] Comment on above: Performed By: #### L AB980 #### [facility] (DEFAULT) [address] [address] Platelet mean volume (Bld) [Entitic vol] 9.5 fL Normal 8.7-12.3 [facility] Comment on above: Performed By: #### L [id number] #### [facility] (DEFAULT) [address] [address] Platelets (Bld) [#/Vol] 144 10*3/uL Low 146-337 [facility] Comment on above: Performed By: #### L AB980 #### [facility] (DEFAULT) [address] [place] [address] RBC (Bld) [#/Vol] 4.57 10*6/uL Normal 4.38-5.83 [facility] Comment on above: Performed By: #### L [id number] #### [facility] (DEFAULT) [address] [place] [address] RBC Distribution 13.7 % Normal 10.9-14.3 [facility] Comment on above: Performed By: #### L [id number] #### [facility] (DEFAULT) [address] [place] [address] Segs + Bands Auto 67.0 % Normal [facility] Comment on above: Performed By: #### L [id number] #### [facility] (DEFAULT) [address] [place] [address] Segs + Bands,Absolute Auto 3.65 K/uL Normal 1.57-6.19 [facility] Comment on above: Performed By: #### L [id number] #### [facility] (DEFAULT) [address] [place] [address] WBC (Bld) [#/Vol] 5.44 10*3/uL Normal 3.73-10.10 [facility] Comment on above: Performed By: #### L [id number] #### [facility] (DEFAULT) [address] [place] [address] CHEM 7 (LYTES,BUN,CREA,GLUC) on 07-05-2024 Anion gap [Moles/Vol] 10 mmol/L 7 - 17 mmol/L [facility] Chloride [Moles/Vol] 105 mmol/L 98 - 10 8 mmol/L [facility] CO2 [Moles/Vol] 24 mmol/L 21 - 31 mmol/L [facility] Creatinine [Mass/Vol] 1.19 mg/dL 0.70 - 1.30 mg/dL [facility] eGFR, CKD-EPI, Male 61 - PINF [facility] Comment on above: Reported eGFR is bas ed on the CKD-EPI 2021 equation using creatinine, age, and sex. Glucose [Mass/Vol] 96 mg/dL 70 - 179 mg/dL [facility] Osmolality Calc [Osmolality] 285 [facility] Potassium [Moles/Vol] 3.9 mmol/L 3.5 - 5.0 mmol/L [facility] Sodium [Moles/Vol] 135 mmol/L 135 - 145 mmol/L [facility] Urea nitrogen [Mass/Vol] 19 mg/dL 7 - 25 mg/dL [facility] Urea nitrogen/Creatinine [Mass ratio] 16 mg/mg [facility] Anion gap [Moles/Vol] 10 mmol/L Normal 7-17 [facility] Comment on above: Performed By: #### C HM7 #### [facility] (DEFAULT) [address] [place] [address] Chloride [Moles/Vol] 105 mmol/L Normal 98-108 [facility] Comment on above: Performed By: #### C HM7 #### [facility] (DEFAULT) [address] [place] [address] CO2 [Moles/Vol] 24 mmol/L Normal 21-31 [facility] Comment on above: Performed By: #### C HM7 #### [facility] (DEFAULT) [address] [place] [address] Creatinine [Mass/Vol] 1.19 mg/dL Normal 0.70-1.30 [facility] Comment on above: Performed By: #### C HM7 #### [facility] (DEFAULT) [address] [place] [address] GFR/1.73 sq M.predicted among non-blacks MDRD (S/P/Bld) [Vol rate/Area] 63 mL/min/{1.73_m2} Normal >=60 [facility] Comment on above: Result Comment: Repo rted eGFR is based on the CKD-EPI 1 equation using creatinine, age, and sex. Performed By: #### C HM7 #### [facility] (DEFAULT) [address] [place] [address] Glucose [Mass/Vol] 96 mg/dL Normal Nonfastin -179 mg/dL; Fastin-99 [facility] Comment on above: Performed By: #### C HM7 #### [facility] (DEFAULT) [address] [place] [address] Osmolality [Osmolality] 285 mosm/kg Normal 278-305 [facility] Comment on above: Performed By: #### C HM7 #### [facility] (DEFAULT) [address] [place] [address] Potassium [Moles/Vol] 3.9 mmol/L Normal 3.5-5.0 [facility] Comment on above: Performed By: #### C HM7 #### [facility] (DEFAULT) [address] [place] [address] Sodium [Moles/Vol] 135 mmol/L Normal 135-145 [facility] Comment on above: Performed By: #### C HM7 #### [facility] (DEFAULT) [address] [place] [address] Urea nitrogen [Mass/Vol] 19 mg/dL Normal 7-25 [facility] Comment on above: Performed By: #### C HM7 #### [facility] (DEFAULT) [address] [place] [address] Urea nitrogen/Creatinine [Mass ratio] 16 mg/mg Normal [facility] Comment on above: Performed By: #### C HM7 #### [facility] (DEFAULT) [address] [place] [address] CREAT/GFRon 07-05-2024 Creatinine [Mass/Vol] 0.92 mg/dL 0.70 - 1.30 mg/dL [facility] GFR/1.73 sq M.predicted CKD-EPI (S/P/Bld) [Vol rate/Area] 86 - PINF [facility] Comment on above: Reported eGFR is bas ed on the CKD-EPI 2020 equation using creatinine, age, and sex. Interpretation and review of laboratory results Normal [facility] Test performed at address of the patient encounter. [facility] CT CARDIAC PULMONARY VENOGRA Thu07-05-2024 CT CARDIAC PULMONARY VENOGRAM [facility] CT Report Name: DELMI BERGER : 1950 Scan Date: 2024-07-05 08:26:36 Electronically signed by Hali Meadows 08:47:08 VITALS HEIGHT: 66 in (167.64 cm) WEIGHT: 177.01 lbs (80.29 kgs) BSA: 1.90 m^2 BMI: 29 kg/m^2 BP: 145 / 75 mmHg BASELINE HR: 67 BPM HEART RHYTHM: Atrial fibrillation FINAL No LA/RA thrombus. Filling defect in JOSEPH that does not persist on delayed imaging is concerning for stasis, not thrombus. Normal pulmonary venous anatomy. Other findings detailed below. Hx of atrial arrhythmia. Pulmonary CT venogram to assess left atrial (LA) and pulmonary veins (PV) anatomy. CT PV There are 5 pulmonary veins (PV) draining to the left atrium (LA). The measurements of the PV at their LA insertion sites are measured in cm as follows:\X09\ RUPV: 2.0 x 1.6 cm RMPV: 0.8 x 0.8 cm RLPV: 2.5 x 2.4 cm LUPV: 1.6 x 0.8 cm LLPV: 1.8 x 0.8 cm Moderate biatrial enlargement. There is no LA or RA thrombus by first pass and delayed images.\X09\ Filling defect in JOSEPH that does not persist on delayed imaging is concerning for stasis, not thrombus. Severe coronary calcification with evidence of prior PCI LAD, LCX & RCA. No/Mild/Moderate aortic valve calcification. No mitral annular calcification.\X09\ The ascending aorta is normal in size measuring 3.3 x 3.2 cm. Mild calcifications in the descending thoracic segment. The main pulmonary artery is normal size measuring 2.7 cm on axial images. Extra cardiac findings: limited field of view: Chest Wall: Mild degenerative changes in the thoracic spine. Mediastinum: Normal, without adenopathy. Sandra: Calcified nodules, most likely suggestive of old granulomatous disease.\X09\ Pleural Spaces: Normal, without thickening/effusion or pneumothorax. Lung Parenchyma: No evidence of significant lung disease, or masses. Mild atelectasis at the base. Few noncalcified nodules in both lungs measuring up to 2 mm; no further follow-up required in the absence of risk factors according to Fleischner criteria.\X09\ STUDY QUALITY: Study quality is good. SCAN INFO TEST TYPE: Venogram SCANNER BILL OF MATERIALS CLERK: [employer]Think SCANNER MODEL: [employer] DOSE REDUCTION ALGORITHM: Helical with dose modulation SCAN COVERAGE ZONE: Pulmonary Vein/JOSEPH EKG GATED: No GENERAL CONTRAST AGENT CONTRAST AGENT USED?: Yes TYPE: Omnipaque 350 DOSE: 50 ml RATE: 4 ml/s ROUTE: IV ARM: Right BOLUS TECHNIQUE: Biphasic SCAN DELAY TIME METHOD: Bolus Track SERUM CREATININE: 0.92 mg/dL GFR: 85.02 ml/min/1.73m^2 CREATININE DATE: CT CONTRAST REACTION: None RADIATION DOSE DLP: 103 SETUP DATE OF EVENT: SCAN TYPE: Clinical PATIENT TYPE: Inpatient REASON(S) FOR SCAN: EP procedure planning REFERRING PHYSICIAN: 1) SUNIL DELACRUZ NURSE: Jabier Yusuf ATTENDING PHYSICIAN: HALI Hopper MD TECHNOLOGIST: Renetta Gramajo Patient Account [id number] CPT Codes 90185 ICD10 Codes I48.0 Report generated by [employer], a product of [employer] Normal [facility] Chest>Heart.atrium.left+Pulm onary veins CT angiogram and 3D reconstruction W contrast Ed 07-05-[address] [facility] [address] Report Name: DELMI BERGER : 1950 Scan Date: 2024-07-05 08:26:36 Electronically signed by Hali Meadows 08:47:08 VITALS HEIGHT: 66 in (167.64 cm) WEIGHT: 177.01 lbs (80.29 kgs) BSA: 1.90 m^2 BMI: 29 kg/m^2 BP: 145 / 75 mmHg BASELINE HR: 67 BPM HEART RHYTHM: Atrial fibrillation FINAL IMPRESSION No LA/RA thrombus. Filling defect in JOSEPH that does not persist on delayed imaging is concerning for stasis, not thrombus. Normal pulmonary venous anatomy. Other findings detailed below. Hx of atrial arrhythmia. Pulmonary CT venogram to assess left atrial (LA) and pulmonary veins (PV) anatomy. CT PV There are 5 pulmonary veins (PV) draining to the left atrium (LA). The measurements of the PV at their LA insertion sites are measured in cm as follows: RUPV: 2.0 x 1.6 cm RMPV: 0.8 x 0.8 cm RLPV: 2.5 x 2.4 cm LUPV: 1.6 x 0.8 cm LLPV: 1.8 x 0.8 cm Moderate biatrial enlargement. There is no LA or RA thrombus by first pass and delayed images. Filling defect in JOSEPH that does not persist on delayed imaging is concerning for stasis, not thrombus. Severe coronary calcification with evidence of prior PCI LAD, LCX & RCA. No/Mild/Moderate aortic valve calcification. No mitral annular calcification. The ascending aorta is normal in size measuring 3.3 x 3.2 cm. Mild calcifications in the descending thoracic segment. The main pulmonary artery is normal size measuring 2.7 cm on axial images. Extra cardiac findings: limited field of view: Chest Wall: Mild degenerative changes in the thoracic spine. Mediastinum: Normal, without adenopathy. Sandra: Calcified nodules, most likely suggestive of old granulomatous disease. Pleural Spaces: Normal, without thickening/effusion or pneumothorax. Lung Parenchyma: No evidence of significant lung disease, or masses. Mild atelectasis at the base. Few noncalcified nodules in both lungs measuring up to 2 mm; no further follow-up required in the absence of risk factors according to Fleischner criteria. STUDY QUALITY: Study quality is good. SCAN INFO TEST TYPE: Venogram SCANNER BILL OF MATERIALS CLERK: [employer] SCANNER MODEL: [employer] DOSE REDUCTION ALGORITHM: Helical with dose modulation SCAN COVERAGE ZONE: Pulmonary Vein/JOSEPH EKG GATED: No GENERAL CONTRAST AGENT CONTRAST AGENT USED?: Yes TYPE: Omnipaque 350 DOSE: 50 ml RATE: 4 ml/s ROUTE: IV ARM: Right BOLUS TECHNIQUE: Biphasic SCAN DELAY TIME METHOD: Bolus Track SERUM CREATININE: 0.92 mg/dL GFR: 85.02 ml/min/1.73m^2 CREATININE DATE: CT CONTRAST REACTION: None RADIATION DOSE DLP: 103 SETUP DATE OF EVENT: SCAN TYPE: Clinical PATIENT TYPE: Inpatient REASON(S) FOR SCAN: EP procedure planning REFERRING PHYSICIAN: 1) SUNIL DELACRUZ NURSE: Jabier Yusuf ATTENDING PHYSICIAN: HALI Hopper MD TECHNOLOGIST: Renetta Gramajo Patient Account [id number] CPT Codes 94115 ICD10 Codes I48.0 Report generated by Rapt, a product of [employer] CARDIOLOGY Hali Meadows MD - 07/05/[address] [facility] [address] Report Name: DELMI BERGER : 1950 Scan Date: 2024-07-05 08:26:36 Electronically signed by Hali Meadows 08:47:08 VITALS ====== ======== HEIGHT: 66 in (167.64 cm) WEIGHT: 177.01 lbs (80.29 kgs) BSA: 1.90 m^2 BMI: 29 kg/m^2 BP: 145 / 75 mmHg BASELINE HR: 67 BPM HEART RHYTHM: Atrial fibrillation FINAL IMPRESSION ====== ======== No LA/RA thrombus. Filling defect in JOSEPH that does not persist on delayed imaging is concerning for stasis, not thrombus. Normal pulmonary venous anatomy. Other findings detailed below. ====== Hx of atrial arrhythmia. Pulmonary CT venogram to assess left atrial (LA) and pulmonary veins (PV) anatomy. CT PV ====== There are 5 pulmonary veins (PV) draining to the left atrium (LA). The measurements of the PV at their LA insertion sites are measured in cm as follows: RUPV: 2.0 x 1.6 cm RMPV: 0.8 x 0.8 cm RLPV: 2.5 x 2.4 cm LUPV: 1.6 x 0.8 cm LLPV: 1.8 x 0.8 cm Moderate biatrial enlargement. There is no LA or RA thrombus by first pass and delayed images. Filling defect in JOSEPH that does not persist on delayed imaging is concerning for stasis, not thrombus. Severe coronary calcification with evidence of prior PCI LAD, LCX & RCA. No/Mild/Moderate aortic valve calcification. No mitral annular calcification. The ascending aorta is normal in size measuring 3.3 x 3.2 cm. Mild calcifications in the descending thoracic segment. The main pulmonary artery is normal size measuring 2.7 cm on axial images. Extra cardiac findings: limited field of view: Chest Wall: Mild degenerative changes in the thoracic spine. Mediastinum: Normal, without adenopathy. Sadnra: Calcified nodules, most likely suggestive of old granulomatous disease. Pleural Spaces: Normal, without thickening/effusion or pneumothorax. Lung Parenchyma: No evidence of significant lung disease, or masses. Mild atelectasis at the base. Few noncalcified nodules in both lungs measuring up to 2 mm; no further follow-up required in the absence of risk factors according to Fleischner criteria. STUDY QUALITY: Study quality is good. 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: [employer] SCANNER MODEL: [employer] DOSE REDUCTION ALGORITHM: Helical with dose modulation SCAN COVERAGE ZONE: Pulmonary Vein/JOSEPH EKG GATED: No GENERAL ------ CONTRAST AGENT CONTRAST AGENT USED?: Yes TYPE: Omnipaque 350 DOSE: 50 ml RATE: 4 ml/s ROUTE: IV ARM: Right BOLUS TECHNIQUE: Biphasic SCAN DELAY TIME METHOD: Bolus Track SERUM CREATININE: 0.92 mg/dL GFR: 85.02 ml/min/1.73m^2 CREATININE DATE: CT CONTRAST REACTION: None RADIATION DOSE DLP: 103 SETUP DATE OF EVENT: SCAN TYPE: Clinical PATIENT TYPE: Inpatient REASON(S) FOR SCAN: EP procedure planning REFERRING PHYSICIAN: 1) SUNIL DELACRUZ NURSE: Jabier Yusuf ATTENDING PHYSICIAN: HALI Hopper MD TECHNOLOGIST: Renetta Gramajo BILLING ====== ======== Patient Account [id number] CPT Codes 75489 ICD10 Codes I48.0 Report generated by [employer], a product of [employer] [facility] Radiology Study observation (narrative) [facility] Chest>Heart.atrium.left+Pulm onary veins CT angiogram and 3D reconstruction W contrast IVOrdered By: Hali Meadows on 07-05-2024 [facility] Work Phone: PT,INR,PTTon 07-05-2024 aPTT Coag (PPP) [Time] 44.2 s High [facility] INR Coag (Bld) [Relative time] 1.5 {INR} High 0.9 - 1.1 [facility] Interpretation and review of laboratory results Abnormal [facility] PT Coag (PPP) [Time] 17.8 s High [facility] (Bld[facility] [Time] 44.2 s High 24.0-34.3 [facility] Comment on above: Performed By: #### P TPTT #### [facility] (DEFAULT) [address] [place] [phone] INR Coag (PPP) [Relative time] 1.5 {INR} High 0.9-1.1 [facility] Comment on above: Performed By: #### P TPTT #### [facility] (DEFAULT) [address] [place] [id number] PT Coag (PPP) [Time] 17.8 s High 11.9-14.2 [facility] Comment on above: Performed By: #### P TPTT #### [facility] (DEFAULT) [address] [place] [id number] MR BRAIN WITH AND WITHOUT CO NTRASTon 06-16-2024 MR BRAIN WITH AND WITHOUT CONTRAST EXAMINATION: MR BRAIN WITH AND WITHOUT CONTRAST HISTORY: abnormal CT. Dx: G93.0 (Cerebral cyst) Injury/Trauma or Illness?:Illness/Other How long have you had these symptoms (acute/chronic)?:Chroni c CONTRAST: GADOTERATE MEGLUMINE 0.5 MMOL/ML (376.9 MG/ML) INTRAVENOUS SOLUTION - 16 mL, TECHNIQUE: Sagittal T1, axial T1, gradient echo, FLAIR, LENA T2, diffusion imaging without contrast and post contrast sagittal, axial and coronal T1 images performed. COMPARISON: 03/20/2022. FINDINGS: Left hemispheric fluid collection that abuts the calvarium and is likely extraaxial. This measures approximately 57 x 70 x 50 mm in craniocaudad and transverse dimension. The lesion is intermediate to high signal T1 and high signal T2 suggesting increased protein within the lesion. Postsurgical changes in the overlying calvarium. 4 mm midline shift of the midline indicator. The overall appearance of the lesion is stable when compared to the prior study. The right cerebral hemisphere, brainstem and cerebellar hemispheres are normal. Good flow is seen within the vertebrobasilar and carotid circulation as well as the sagittal sinus. The orbital apices and the infratemporal fossa are normal. IMPRESSION: Stable left hemispheric cystic lesion with increased protein. There is approximately 4 mm midline shift of the midline indicator. JGW/tde Workstation ID: [id number] Dictated by: Tan PERRY on ThuJun 20, 2024 9:34:50 AM EDT Transcribed by: JESÚS BAKER on ThuJun 20, 2024 9:40:45 AM EDT Finalized by: Tan PERRY on ThuJun 20, 2024 11:09:44 AM EDT [facility] Comment on above: Order Comment: Injur y/Trauma or Illness?:Illness/Other How long have you had these symptoms (acute/chronic)?:Chronic Reason for exam?:H/A's AND Memory problems Hx. of Brain surgery Cerebral Cyst removed 2022 Type of Exam?:Subsequent/Follow-up Additional signs and symptoms?:na PROSTATE BXon 06-07-2024 PROSTATE BX --- Patient Age/Sex Location Account Attending Physician DELMI BERGER 73/M [facility] [id number] Dr. Lenny Herndon MD Specimen: [id number] Received: 06/08/24 Status: VERA Yen Num: [id number] Spec Type: PROST BX Subm Dr: Dr. Lenny Herndon MD HEADER OPERATION: Prostate biopsy PRE-OP DIAGNOSIS: Elevated PSA TISSUE SUBMITTED: A - Right mid, B - Right base, C -Left mid, D- Left base MICROSCOPIC DIAGNOSIS A. Prostate, right mid, biopsy: - Benign prostate tissue. B. Prostate, right base, biopsy: - Benign prostate tissue. C. Prostate, left mid, biopsy: - Benign prostate tissue. D. Prostate, left base, biopsy: - Benign prostate tissue. MICROSCOPIC DESCRIPTION Slides are reviewed. GROSS DESCRIPTION A. Received in formalin in a container labeled with the patient's name, date of , and right mid is a 1.1 x 0.1 cm white-castillo and wispy core biopsy of soft tissue. Submitted in toto in A1. B. Received in formalin in a container labeled with the patient's name, date of , and right base is a 1.5 x 0.1 cm white-castillo and wispy core biopsy of soft tissue. Submitted in toto in B1. C. Received in formalin in a container labeled with the patient's name, date of , and left mid are 2 white-castillo, wispy core biopsies of soft tissue measuring 0.9 x 0.1 cm and 1.2 x 0.1 cm. Submitted in toto in C1. D. Received in formalin in a container labeled with the patient's name, date of , and left base is a 1.3 x 0.1 cm white-castillo and wispy core biopsy of soft tissue. Submitted in toto in D1. [facility] 06-08-2024 CPT:99891s4 Patient Age/Sex Location Account Attending Physician DELMI BERGER 73/M LABSPEC [id number] Dr. Lenny Herndon MD Signed (signature on file) Dr. Ute Conner MD 06/15/24 0752 Normal [facility] Comment on above: Performed By: #### P PROSB #### [facility] [address] [place], [place], [id number] PSA Total+%Freeon 05-15-2024 PSA, FREE 3.99 ng/mL Normal N/A [facility] Comment on above: Result Comment: Chuy OSORIO methodology. Performed By: #### L 3110.0500 #### [facility] [address] [place], [place], [id number] PSA, FREE % 25.4 Normal . [facility] Comment on above: Result Comment: The table below lists the probability of prostate cancer for men with non-suspicious LEANNA results and total PSA between 4 and 10 ng/mL, by patient age (Trent et al, SELWYN 1998, 279:1542). % Free PSA 50-64 yr 65-75 yr 0.00-10.00% 56% 55% 10.01-15.00% 24% 35% 15.01-20.00% 17% 23% 20.01-25.00% 10% 20% >25.00% 5% 9% Please note: Trent et al did not make specific recommendations regarding the use of percent free PSA for any other population of men. Performed at: [employer] [id number] Manager Clinical: David Kenny PhD, Phone: [phone] Performed By: #### L 3110.0500 #### [facility] [address] [facility] [place], [address] PSA, TOTAL ULTR 15.700 ng/mL Abnormal 0.000-4.000 [facility] Comment on above: Result Comment: Chuy OSORIO methodology. According to the [employer], Serum PSA should decrease and remain at undetectable levels after radical prostatectomy. The AUA defines biochemical recurrence as an initial PSA value 0.200 ng/mL or greater followed by a subsequent confirmatory PSA value 0.200 ng/mL or greater. Values obtained with different assay methods or kits cannot be used interchangeably. Results cannot be interpreted as absolute evidence of the presence or absence of malignant disease. Performed By: #### L 3110.0500 #### [facility] [address] [place], [place], [phone] CT HEAD WITHOUT ONLYon 05-13 CT HEAD WITHOUT ONLY EXAMINATION: CT HEA D WITHOUT ONLY HISTORY: Memory impairment COMPARISON: CT dated 05/05/2017 TECHNIQUE: CT examination of the head without IV contrast. Dose reduction techniques were achieved by using automated exposure control and/or adjustment of mA and/or kV according to patient size and/or use of iterative reconstruction technique. FINDINGS: CT scan of the head without contrast is compared to prior study as noted. There is a slightly lobulated well-circumscribed cystic mass in the lateral left frontal parietal region extending inferiorly to the lateral mid and posterior temporal lobe measuring 4.5 x 6.6 x 5.8 cm with calcifications along the posterior medial inferior aspect of the lesion. Lesion characteristics are similar although is markedly increased in size since the study. There is attenuation left lateral and third ventricles with mild [id number] midline shift. The basilar cisterns are patent. The right cerebral hemisphere, brainstem, and cerebellar hemispheres are unremarkable. No acute hemorrhage or reduction. Suspect ependymal or arachnoid cyst. IMPRESSION: Enlarging cystic mass left cerebral hemisphere with midline shift as noted Otherwise unremarkable study Normal [facility] Free PSA/Total PSA [Mass fra ction]Ordered By: Magalie Evans on 05-12-2024 % Free Prostate Specific Ag Calc 25.4 % . [facility] Comment on above: The table below list s the probability of prostate cancer formen with non-suspicious LEANNA results and total PSA between4 and 10 ng/mL, by patient age (Trent et al, SELWYN 1998,279:1542). % Free PSA 50-64 yr 65-75 yr 0.00-10.00% 56% 55% 10.01-15.00% 24% 35% 15.01-20.00% 17% 23% 20.01-25.00% 10% 20% >25.00% 5% 9%Please note: Trent et al did not make specific recommendations regarding the use of percent free PSA for any other population of men.Performed at: [employer] [id number] Director: David Kenny PhD, Phone: [phone] Free prostate specific antig en (PSA) measurementOrdered By: Magalie Evans on 05-12-2024 Free Prostate Specific Antigen 3.99 ng/mL N/A [facility] Comment on above: Darryn ECLIA methodol ogy. PSA, totalOrdered By: Jesus Evans on 05-12-2024 Prostate Specific Ag, Ultra-Sensitv 15.700 ng/mL High 0.000-4.000 [facility] Comment on above: Darryn ECLIA methodol ogy.According to the [employer], Serum PSAshould decrease and remain at undetectable levels afterradical prostatectomy. The AUA defines biochemicalrecurrence as an initial PSA value 0.200 ng/mL or greaterfollowed by a subsequent confirmatory PSA value 0.200 ng/mLor greater. Values obtained with different assay methods orkits cannot be used interchangeably. Results cannot beinterpreted as absolute evidence of the presence or absenceof malignant disease. Albumin to globulin ratioOrd ered By: Sherwin Nichols on 04-25-2024 Albumin/Globulin [Mass ratio] 1.0 {ratio} 0.9-2.4 [facility] Bilirubin, totalOrdered By: Sherwin Nichols on 04-25-2024 Bilirubin [Mass/Vol] 0.60 mg/dL 0.20-1.00 [facility] Comment on above: For patients on eltr ombopag therapy, use of Dimension [place] TBIL is not recommended. Blood urea nitrogen (BUN)/cr eatinine ratioOrdered By: Sherwin Nichols on 04-25-2024 Urea nitrogen/Creatinine [Mass ratio] 13.4 mg/mg 10-20 [facility] Carbon dioxide measurementOr dered By: Sherwin Nichols on 04-25-2024 CO2 [Moles/Vol] 27.0 mmol/L 21.0-32.0 [facility] Chloride measurementOrdered By: Sherwin Nichols on 04-25-2024 Chloride [Moles/Vol] 105 mmol/L 98-107 [facility] Comprehensive Metabolic Prof ilon 04-25-2024 Albumin [Mass/Vol] 3.8 g/dL Normal 3.2-5.0 [facility] Comment on above: Performed By: #### L 500.4050, L500.4100, L501.9910 #### [facility] [place], [place], [id number] Albumin/Globulin [Mass ratio] 1.0 {ratio} Normal 0.9-2.4 [facility] Comment on above: Performed By: #### L 500.4050, L500.4100, L501.9910 #### [facility] [address] [place], [address] ALK P 78 U/L Normal 45-117 [facility] Comment on above: Performed By: #### L 500.4050, L500.4100, L501.9910 #### [facility] [address] [place], [address] ALT [Catalytic activity/Vol] 31 U/L Normal 16-61 [facility] Comment on above: Performed By: #### L 500.4050, L500.4100, L501.9910 #### [facility] [address] [place], [address] AST [Catalytic activity/Vol] 29 U/L Normal 15-37 [facility] Comment on above: Performed By: #### L 500.4050, L500.4100, L501.9910 #### [facility] [address] [place], [address] Bilirubin [Mass/Vol] 0.60 mg/dL Normal 0.20-1.00 [facility] Comment on above: Result Comment: For patients on eltrombopag therapy, use of Dimension [place] TBIL is not recommended. Performed By: #### L 500.4050, L500.4100, L501.9910 #### [facility] [address] [place], [address] BUN/CRE 13.4 RATIO Normal 10-20 [facility] Comment on above: Performed By: #### L 500.4050, L500.4100, L501.9910 #### [facility] [address] [place], [address] CA,Total 9.0 mg/dL Normal 8.5-10.1 [facility] Comment on above: Performed By: #### L 500.4050, L500.4100, L501.9910 #### [facility] [address] [place], [address] Chloride [Moles/Vol] 105 mmol/L Normal 98-107 [facility] Comment on above: Performed By: #### L 500.4050, L500.4100, L501.9910 #### [facility] [address] [place], [address] CO2 [Moles/Vol] 27.0 mmol/L Normal 21.0-32.0 [facility] Comment on above: Performed By: #### L 500.4050, L500.4100, L501.9910 #### [facility] [address] [place], [address] Creatinine [Mass/Vol] 1.27 mg/dL Normal 0.70-1.30 [facility] Comment on above: Result Comment: The validity of the calculated GFR GFRAA in patients over 70 years has not been determined. Clinical correlation is essential. Performed By: #### L 500.4050, L500.4100, L501.9910 #### [facility] [address] [place], [address] EST GFR - AA 71 mL/min Normal >60 [facility] Comment on above: Result Comment: Afri can Ethiopian GFR Calc Performed By: #### L 500.4050, L500.4100, L501.9910 #### [facility] [address] [place], [address] GAP 5 Normal 5-15 [facility] Comment on above: Performed By: #### L 500.4050, L500.4100, L501.9910 #### [facility] [address] [place], [address] GFR/1.73 sq M.predicted among non-blacks MDRD (S/P/Bld) [Vol rate/Area] 59 mL/min/{1.73_m2} Low >60 [facility] Comment on above: Result Comment: Non- GFR Calc Performed By: #### L 500.4050, L500.4100, L501.9910 #### [facility] [address] [place], [address] Globulin (S) [Mass/Vol] 3.8 g/dL Normal 2.2-4.2 [facility] Comment on above: Performed By: #### L 500.4050, L500.4100, [id number] #### [facility] [address] [place], [address] Glucose [Mass/Vol] 93 mg/dL Normal 74-106 [facility] Comment on above: Performed By: #### L 500.4050, L500.4100, [id number] #### [facility] [address] [place], [address] Potassium [Moles/Vol] 4.6 mmol/L Normal 3.5-5.1 [facility] Comment on above: Performed By: #### L 500.4050, L500.4100, L501.9910 #### [facility] [address] [place], [address] Sodium [Moles/Vol] 137 mmol/L Normal 136-145 [facility] Comment on above: Performed By: #### L 500.4050, L500.4100, [id number] #### [facility] [address] [place], [address] T PROT 7.6 g/dL Normal 6.4-8.2 [facility] Comment on above: Performed By: #### L 500.4050, L500.4100, L501.9910 #### [facility] [address] [place], [address] Urea nitrogen [Mass/Vol] 17 mg/dL Normal 7-18 [facility] Comment on above: Performed By: #### L 500.4050, L500.4100, L501.9910 #### [facility] [address] [place], [address] Estimated glomerular filtrat ion rate (GFR) AmericanOrdered By: Sherwin Nichols on 04-25-2024 Estimated GFR (MDRD) Amer 71 mL/min >60 [facility] Comment on above: GFR Calc Glomerular filtration rate ( GFR) estimationOrdered By: Sherwin Nichols on 04-25-2024 Estimated GFR (MDRD) Non-Af Amer 59 mL/min Low >60 [facility] Comment on above: Non- GFR Calc Glucose measurementOrdered B y: Sherwin Nichols on 04-25-2024 Glucose [Mass/Vol] 93 mg/dL 74-106 [facility] High density lipoprotein (HD L) measurementOrdered By: Sherwin Nichols on 04-25-2024 Cholesterol in HDL [Mass/Vol] 73 mg/dL >40 [facility] Comment on above: The drugs N-Acetylcy steine and Metamizole may falsely depress this assay. Reference Range HDL <40 mg/dL Low HDL Cholesterol HDL >or= 60 mg/dL High HDL Cholesterol Laboratory - Chemistry and C hemistry - challengeOrdered By: Sherwin Nichols on 04-25-2024 AST [Catalytic activity/Vol] 29 U/L 15-37 [facility] Lipid Profileon 04-25-2024 Cholesterol [Mass/Vol] 170 mg/dL Normal 200 [facility] Comment on above: Result Comment: <200 mg/dL Desirable 200-240 mg/dL Borderline >240 mg/dL High Risk Performed By: #### L 500.4050, L500.4100, L501.9910 #### [facility] [address] [place], [address] Cholesterol in HDL [Mass/Vol] 73 mg/dL Normal [facility] Comment on above: Result Comment: The drugs N-Acetylcysteine and Metamizole may falsely depress this assay. Reference Range HDL <40 mg/dL Low HDL Cholesterol HDL >or= 60 mg/dL High HDL Cholesterol Performed By: #### L 500.4050, L500.4100, L501.9910 #### [facility] [address] [place], [address] Cholesterol in LDL [Mass/Vol] 65 mg/dL Normal 0-130 [facility] Comment on above: Performed By: #### L 500.4050, L500.4100, L501.9910 #### [facility] [address] [place], [address] Cholesterol in VLDL [Mass/Vol] 32 mg/dL Normal 5-40 [facility] Comment on above: Performed By: #### L 500.4050, L500.4100, L501.9910 #### [facility] [address] [place], [address] Triglyceride [Mass/Vol] 159 mg/dL Normal [facility] Comment on above: Result Comment: The drugs N-Acetylcysteine and Metamizole may falsely depress this assay. Serum Triglycerides Reference Interval Normal <150 mg/dL Borderline high 150 - 199 mg/dL High 200 - 499 mg/dL Very High > or = 500 mg/dL Performed By: #### L 500.4050, L500.4100, L501.9910 #### [facility] [address] [place], [address] Low density lipoprotein (LDL ) cholesterol measurementOrdered By: Sherwin Nichols on 04-25-2024 Cholesterol in LDL [Mass/Vol] 65 mg/dL 0-130 [facility] PSA,Total - Annual Screenon 04-25-2024 PSA,TOT SCREEN 14.60 ng/mL High 0.00-4.00 [facility] Comment on above: Result Comment: This test was performed using the TPSA assay method for the [employer] chemistry system. Values obtained with different assay methods cannot be used interchangably. When changing PSA assays in the course of monitoring a patient, additional sequential testing should be carried out to confirm baseline values. Performed By: #### L 500.4050, L500.4100, L501.9910 #### [facility] [address] [place], [address] Potassium measurementOrdered By: Sherwin Nichols on 04-25-2024 Potassium [Moles/Vol] 4.6 mmol/L 3.5-5.1 [facility] Screening prostate specific antigen (PSA) measurementOrdered By: Sherwin Nichols on 04-25-2024 Prostate Specific Antigen Screen 14.60 ng/mL High 0.00-4.00 [facility] Comment on above: This test was perfor med using the TPSA assay method for the[employer] chemistry system. Values obtained with differentassay methods cannot be used interchangably.When changing PSA assays in the course of monitoring apatient, additional sequential testing should be carriedout to confirm baseline values. Serum anion gap measurementO rdered By: Sherwin Nichols on 04-25-2024 Anion gap [Moles/Vol] 5 mmol/L 5-15 [facility] Serum globulin measurementOr dered By: Sherwin Nichols on 04-25-2024 Globulin (S) [Mass/Vol] 3.8 g/dL 2.2-4.2 [facility] Serum or plasma alanine seay otransferase (ALT) measurementOrdered By: Sherwin Nichols on 04-25-2024 ALT [Catalytic activity/Vol] 31 U/L 16-61 [facility] Serum or plasma albumin gray urement (mass/volume)Ordered By: Sherwin Nichols on 04-25-2024 Albumin [Mass/Vol] 3.8 g/dL 3.2-5.0 [facility] Serum or plasma alkaline germán sphatase measurementOrdered By: Sherwin Nichols on 04-25-2024 ALP [Catalytic activity/Vol] 78 U/L 45-117 [facility] Serum or plasma calcium gray urement (mass/volume)Ordered By: Sherwin Nichols on 04-25-2024 Calcium [Mass/Vol] 9.0 mg/dL 8.5-10.1 [facility] Serum or plasma cholesterol measurement (mass/volume)Ordered By: Sherwin Nichols on 04-25-2024 Cholesterol [Mass/Vol] 170 mg/dL <200 [facility] Comment on above: <200 mg/dL Desirable 200-240 mg/dL Borderline >240 mg/dL High Risk Serum or plasma creatinine m easurement (mass/volume)Ordered By: Sherwin Nichols on 04-25-2024 Creatinine [Mass/Vol] 1.27 mg/dL 0.70-1.30 [facility] Comment on above: The validity of the calculated GFR & GFRAA in patients over 70 years has not been determined. Clinical correlation is essential. Serum or plasma urea nitroge n measurement (mass/volume)Ordered By: Sherwin Nichols on 04-25-2024 Urea nitrogen [Mass/Vol] 17 mg/dL 7-18 [facility] Sodium levelOrdered By: Sherwin Nichols on 04-25-2024 Sodium [Moles/Vol] 137 mmol/L 136-145 [facility] Total proteinOrdered By: Aide Nichols on 04-25-2024 Protein [Mass/Vol] 7.6 g/dL 6.4-8.2 [facility] Triglycerides measurementOrd ered By: Sherwin Nichols on 04-25-2024 Triglyceride [Mass/Vol] 159 mg/dL <199 [facility] Comment on above: The drugs N-Acetylcy steine and Metamizole may falsely depress this assay.Serum Triglycerides Reference Interval Normal <150 mg/dL Borderline high 150 - 199 mg/dL High 200 - 499 mg/dL Very High > or = 500 mg/dL Very low density lipoprotein (VLDL) cholesterol measurementOrdered By: Sherwin Nichols on 04-25-2024 VLDL Cholesterol 32 mg/dL 5-40 [facility] Basic metabolic 2000 panelon 10-29-2023 Anion gap [Moles/Vol] 3.0 mmol/L Normal <=15.0 [facility] Comment on above: Performed By: #### T ROP2 #### [facility] [address] [place], [place] [address] Ur Coordinator - Pricila SALVADOR [id number] Calcium [Mass/Vol] 9.3 mg/dL Normal 8.5-10.1 [facility] Comment on above: Performed By: #### T ROP2 #### [facility] [address] [place] [address] Ur Coordinator - Pricila OLSENIA [id number] Chloride [Moles/Vol] 109 mmol/L High 98-107 [facility] Comment on above: Performed By: #### T ROP2 #### [facility] [address] [place] [address] Ur Coordinator - Pricila SALVADOR [id number] CO2 [Moles/Vol] 27 mmol/L Normal 21-32 [facility] Comment on above: Performed By: #### T ROP2 #### [facility] [address] [place] [address] Ur Coordinator - Pricila SALVADOR [id number] Creatinine [Mass/Vol] 1.51 mg/dL High 0.67-1.17 [facility] Comment on above: Performed By: #### T ROP2 #### [facility] [address] [place] [address] Ur Coordinator - Pricila SALVADOR [id number] GFR/1.73 sq M.predicted MDRD (S/P/Bld) [Vol rate/Area] 45 mL/min/{1.73_m2} Low >=59 [facility] Comment on above: Performed By: #### T ROP2 #### [facility] [address] [place] [address] Ur Coordinator - Pricila SALVADOR [id number] Glucose [Mass/Vol] 106 mg/dL Normal 74-106 [facility] Comment on above: Performed By: #### T ROP2 #### [facility] [address] [place] [address] Ur Coordinator - Pricila SALVADOR [id number] HGFR GLOMERULAR FILTRATIO N RATE INTERPRETATION~The eGFR is calculated using the MDRD equation.~This equation has been validated in patients with chronic kidney disease;~however, it underestimates the GFR in healthy patients with GFR's over 60 mL/min.~The equation is not valid in children under the age of 18.~NOTE: Criteria for Chronic Kidney Disease:~ ~1. Kidney damage for at least three months, as defined~by structural or functional abnormalities of the kidney,~with or without decreased glomerular filtration rate, manifested by either:~* Pathological abnormalities or~* Markers of Kidney damage, including abnormalities in~the composition of the blood or urine or abnormalities in imaging tests.~ ~2. GFR <60 mL/min/1.73 m squared for at least three months, with or without kidney damage.~ Normal [facility] Comment on above: Performed By: #### T ROP2 #### [facility] [address] [facility] [place] [address] Ur Coordinator - Pricila OLSENIA [id number] Potassium [Moles/Vol] 4.9 mmol/L Normal 3.5-5.1 [facility] Comment on above: Performed By: #### T ROP2 #### [address] [place] [address] Ur Coordinator - Pricila OLSENIA [id number] Sodium [Moles/Vol] 139 mmol/L Normal 136-145 [facility] Comment on above: Performed By: #### T ROP2 #### [place] [address] Ur Coordinator - Pricilamichaelle OLSENIA [id number] Urea nitrogen [Mass/Vol] 22 mg/dL High 9-20 [facility] Comment on above: Performed By: #### T ROP2 #### [address] [place] [address] Ur Coordinator - Pricila OLSENIA [id number] CBC W Auto Differential pane l (Bld)on 10-29-2023 Basophils (Bld) [#/Vol] 0.05 10*3/uL Normal <=0.70 [facility] Comment on above: Performed By: #### 5 7021-8 #### [facility] [address] [facility] [place] [address] Ur Coordinator - Pricila OLSENIA [id number] Basophils/100 WBC (Bld) 0.8 % Normal <=2.0 [facility] Comment on above: Performed By: #### 5 7021-8 #### [place] [address] [place] [address] Ur Coordinator - Pricila SALVADOR [id number] Eosinophils (Bld) [#/Vol] 0.14 10*3/uL Normal <=0.70 [facility] Comment on above: Performed By: #### 5 7021-8 #### [address] [place] [address] Ur Coordinator - Pricila SALVADOR [id number] Eosinophils/100 WBC (Bld) 2.3 % Normal <=10.0 [facility] Comment on above: Performed By: #### 5 7021-8 #### [address] [place] [address] Ur Coordinator - Pricila SALVADOR [id number] Erythrocyte distribution width (RBC) [Entitic vol] 47.2 fL High 35.1-43.9 [facility] Comment on above: Performed By: #### 5 7021-8 #### [address] [place] [address] Ur Coordinator - Pricila SALVADOR [id number] Hematocrit (Bld) [Volume fraction] 38.7 % Low 40.0-54.0 [facility] Comment on above: Performed By: #### 5 7021-8 #### [address] [place] [address] Ur Coordinator - Pricila OLSENIA [id number] Hemoglobin (Bld) [Mass/Vol] 12.9 g/dL Low 14.0-18.0 [facility] Comment on above: Performed By: #### 5 7021-8 #### [address] Director - Pricila SALVADOR [id number] Immature granulocytes (Bld) [#/Vol] 0.01 10*3/uL Normal <=0.10 [facility] Comment on above: Performed By: #### 5 7021-8 #### [address] [place] [address] Ur Coordinator - Pricila OLSENIA [id number] Immature granulocytes/100 WBC (Bld) 0.20 % Normal <=1.50 [facility] Comment on above: Performed By: #### 5 7021-8 #### [address] [place] [address] Ur Coordinator - Pricila OLSENIA [id number] Lymphocytes (Bld) [#/Vol] 1.07 10*3/uL Low 1.20-3.40 [facility] Comment on above: Performed By: #### 5 7021-8 #### [address] [place] [address] Ur Coordinator - Pricila OLSENIA [id number] Lymphocytes/100 WBC (Bld) 17.9 % Low 20.0-40.0 [facility] Comment on above: Performed By: #### 5 7021-8 #### [address] [place] [address] Ur Coordinator - Pricila OLSENIA [id number] MCH (RBC) [Entitic mass] 30.4 pg Normal 27.0-31.0 [facility] Comment on above: Performed By: #### 5 7021-8 #### [address] [place] [address] Ur Coordinator - Pricila OLSENIA [id number] MCHC (RBC) [Mass/Vol] 33.3 g/dL Normal 32.0-36.0 [facility] Comment on above: Performed By: #### 5 7021-8 #### [address] [place] [address] Ur Coordinator - Pricila OLSENIA [id number] MCV (RBC) [Entitic vol] 91.1 fL Normal 80.0-100.0 [facility] Comment on above: Performed By: #### 5 7021-8 #### [address] [place] [address] Ur Coordinator - Pricila Pyle CLIA [id number] Monocytes (Bld) [#/Vol] 0.63 10*3/uL High 0.10-0.60 [facility] Comment on above: Performed By: #### 5 7021-8 #### [address] [place] [address] Ur Coordinator - Pricila OLSENIA [id number] Monocytes/100 WBC (Bld) 10.5 % High <=8.0 [facility] Comment on above: Performed By: #### 5 7021-8 #### [place] [address] Ur Coordinator - Pricila OLSENIA [id number] Neutrophils (Bld) [#/Vol] 4.08 10*3/uL Normal 1.40-6.50 [facility] Comment on above: Performed By: #### 5 7021-8 #### [place] [address] Ur Coordinator - Pricila Pyle CLIA [id number] Neutrophils/100 WBC (Bld) 68.3 % Normal 50.0-70.0 [facility] Comment on above: Performed By: #### 5 7021-8 #### [place] [address] Ur Coordinator - Pricila OLSENIA [id number] Nucleated RBC (Bld) [#/Vol] 0.00 10*3/uL Normal <=0.10 [facility] Comment on above: Performed By: #### 5 7021-8 #### [place] [address] Ur Coordinator - Pricila OLSENIA [id number] Platelet mean volume (Bld) [Entitic vol] 9.6 fL Normal 9.0-13.0 [facility] Comment on above: Performed By: #### 5 7021-8 #### [address] [place] [address] Ur Coordinator - Pricila OLSENIA [id number] Platelets (Bld) [#/Vol] 166 10*3/uL Normal 130-400 [facility] Comment on above: Performed By: #### 5 7021-8 #### [facility] [address] [place] [address] Ur Coordinator - Pricila SALVADOR [id number] RBC (Bld) [#/Vol] 4.25 10*6/uL Normal 4.00-6.30 [facility] Comment on above: Performed By: #### 5 7021-8 #### [facility] [address] [place] [address] Ur Coordinator - Pricila OLSENIA [id number] WBC (Bld) [#/Vol] 5.98 10*3/uL Normal 4.80-10.80 [facility] Comment on above: Performed By: #### 5 7021-8 #### [facility] [address] [place] [address] Ur Coordinator - Pricila SALVADOR [id number] Lipid panel with direct LDLo n 07-22-2023 Cholesterol [Mass/Vol] 106 mg/dL Normal <=200 [facility] Comment on above: Performed By: #### 5 7698-3 #### [facility] [address] [place] [address] Ur Coordinator - Pricila OLSENIA [id number] Cholesterol in HDL [Mass/Vol] 61 mg/dL High 40-59 [facility] Comment on above: Performed By: #### 5 7698-3 #### [facility] [address] [place] [address] Ur Coordinator - Pricila OLSENIA [id number] Cholesterol in LDL [Mass/Vol] 28 mg/dL Normal 5-100 [facility] Comment on above: Performed By: #### 5 7698-3 #### [facility] [address] [place] [address] Ur Coordinator - Pricila OLSENIA [id number] Cholesterol in LDL/Cholesterol in HDL [Mass ratio] 0.5 {ratio} Normal [facility] Comment on above: Performed By: #### 5 7698-3 #### [place] [address] [place] [address] Ur Coordinator - Pricila SALVADOR [id number] Cholesterol.total/Cho lesterol in HDL [Mass ratio] 1.7 {ratio} Normal [facility] Comment on above: Performed By: #### 5 7698-3 #### [facility] [address] [place] [address] Ur Coordinator - Pricila SALVADOR [id number] HCHOL CHOLESTEROL INTERPRETATION Desirable <200 Borderline High 200-239 High >240 Normal [facility] Comment on above: Performed By: #### 5 7698-3 #### [place] [address] Ur Coordinator - Pricila SALVADOR [id number] HLDL LDL INTERPRETATION Desirable <100 Near Optimal 100-129 Borderline High 130-159 High 160-190 Very High >190 Normal [facility] Comment on above: Performed By: #### 5 7698-3 #### [place] [address] Ur Coordinator - Pricila SALVADOR [id number] HLIPID ATEROSCLEROSIS RISK FACTORS FOR LDL, HDL, AND CHOLESTEROL RISK FACTOR SEX LDL/HDL CHOL/HDL ------- 1/2 Average M 1.00 3.43 F 1.47 3.27 Average M 3.55 4.97 F 3.22 4.44 2X Average M 6.25 9.55 F 5.03 7.05 3X Average M 7.99 23.39 F 6.14 11.04 Normal [facility] Comment on above: Performed By: #### 5 7698-3 #### [place] [address] Ur Coordinator - Pricila SALVADOR [id number] HTRIG TRIGLYCERIDES INTERPRETATION Normal <150 Borderline High 150-199 High 200-499 Very High >500 Normal [facility] Comment on above: Performed By: #### 5 7698-3 #### [facility] [address] [place] [address] Ur Coordinator - Pricila OLSENIA [id number] Triglyceride [Mass/Vol] 86 mg/dL Normal <=150 [facility] Comment on above: Performed By: #### 5 7698-3 #### [facility] [address] [place] [address] Ur Coordinator - Pricila OLSENIA [id number] Basic metabolic 2000 panelon 07-21-2023 Anion gap [Moles/Vol] 6.0 mmol/L Normal <=15.0 [facility] Comment on above: Performed By: #### 2 4321-2 #### [facility] [address] [place] [address] Ur Coordinator - Pricila OLSENIA [id number] Calcium [Mass/Vol] 9.0 mg/dL Normal 8.5-10.1 [facility] Comment on above: Performed By: #### 2 4321-2 #### [facility] [address] [place] [address] Ur Coordinator - Pricila OLSENIA [id number] Chloride [Moles/Vol] 108 mmol/L High 98-107 [facility] Comment on above: Performed By: #### 2 4321-2 #### [facility] [address] [place] [address] Ur Coordinator - Pricila OLSENIA [id number] CO2 [Moles/Vol] 24 mmol/L Normal 21-32 [facility] Comment on above: Performed By: #### 2 4321-2 #### [facility] [address] [place] [address] Ur Coordinator - Pricila OLSENIA [id number] Creatinine [Mass/Vol] 1.32 mg/dL High 0.67-1.17 [facility] Comment on above: Performed By: #### 2 4321-2 #### [facility] [address] [place] [address] Ur Coordinator - Pricila SALVADOR [id number] GFR/1.73 sq M.predicted MDRD (S/P/Bld) [Vol rate/Area] 53 mL/min/{1.73_m2} Low >=59 [facility] Comment on above: Performed By: #### 2 4321-2 #### [facility] [address] [place] [address] Ur Coordinator - Pricila SALVADOR [id number] Glucose [Mass/Vol] 104 mg/dL Normal 74-106 [facility] Comment on above: Performed By: #### 2 4321-2 #### [place] [address] [place] [address] Ur Coordinator - Pricila SALVADOR [id number] HGFR GLOMERULAR FILTRATIO N RATE INTERPRETATION~The eGFR is calculated using the MDRD equation.~This equation has been validated in patients with chronic kidney disease;~however, it underestimates the GFR in healthy patients with GFR's over 60 mL/min.~The equation is not valid in children under the age of 18.~NOTE: Criteria for Chronic Kidney Disease:~ ~1. Kidney damage for at least three months, as defined~by structural or functional abnormalities of the kidney,~with or without decreased glomerular filtration rate, manifested by either:~* Pathological abnormalities or~* Markers of Kidney damage, including abnormalities in~the composition of the blood or urine or abnormalities in imaging tests.~ ~2. GFR <60 mL/min/1.73 m squared for at least three months, with or without kidney damage.~ Normal [facility] Comment on above: Performed By: #### 2 4321-2 #### [facility] [address] [place] [address] Ur Coordinator - Pricila SALVADOR [id number] Potassium [Moles/Vol] 4.6 mmol/L Normal 3.5-5.1 [facility] Comment on above: Performed By: #### 2 4321-2 #### [facility] [address] [place] [address] Ur Coordinator - Pricila SALVADOR [id number] Sodium [Moles/Vol] 138 mmol/L Normal 136-145 [facility] Comment on above: Performed By: #### 2 4321-2 #### [address] [place] [address] Ur Coordinator - Pricila OLSENIA [id number] Urea nitrogen [Mass/Vol] 17 mg/dL Normal 9-20 [facility] Comment on above: Performed By: #### 2 4321-2 #### [address] [place] [address] Ur Coordinator - Pricila OLSENIA [id number] CBC W Auto Differential pane l (Bld)on 07-21-2023 Basophils (Bld) [#/Vol] 0.04 10*3/uL Normal <=0.70 [facility] Comment on above: Performed By: #### T ROP2 #### [address] [place] [address] Ur Coordinator - Pricila OLSENIA [id number] Basophils/100 WBC (Bld) 0.7 % Normal <=2.0 [facility] Comment on above: Performed By: #### T ROP2 #### [place] [address] Ur Coordinator - Pricila Pyle CLIA [id number] Eosinophils (Bld) [#/Vol] 0.29 10*3/uL Normal <=0.70 [facility] Comment on above: Performed By: #### T ROP2 #### [address] [place] [address] Ur Coordinator - Pricila Pyle CLIA [id number] Eosinophils/100 WBC (Bld) 5.1 % Normal <=10.0 [facility] Comment on above: Performed By: #### T ROP2 #### [place] [address] Ur Coordinator - Pricila OLSENIA [id number] Erythrocyte distribution width (RBC) [Entitic vol] 44.8 fL High 35.1-43.9 [facility] Comment on above: Performed By: #### T ROP2 #### [place] [address] [place] [address] Ur Coordinator - Pricila OLSENIA [id number] Hematocrit (Bld) [Volume fraction] 37.7 % Low 40.0-54.0 [facility] Comment on above: Performed By: #### T ROP2 #### [place] [address] [place] [address] Ur Coordinator - Pricila Pyle CLIA [id number] Hemoglobin (Bld) [Mass/Vol] 13.2 g/dL Low 14.0-18.0 [facility] Comment on above: Performed By: #### T ROP2 #### [address] [place] [address] Ur Coordinator - Pricila Pyle CLIA [id number] Immature granulocytes (Bld) [#/Vol] 0.02 10*3/uL Normal <=0.10 [facility] Comment on above: Performed By: #### T ROP2 #### [address] [place] [address] Ur Coordinator - Pricila Pyle CLIA [id number] Immature granulocytes/100 WBC (Bld) 0.40 % Normal <=1.50 [facility] Comment on above: Performed By: #### T ROP2 #### [address] [place] [address] Ur Coordinator - Pricila Pyle CLIA [id number] Lymphocytes (Bld) [#/Vol] 0.88 10*3/uL Low 1.20-3.40 [facility] Comment on above: Performed By: #### T ROP2 #### [address] [place] [address] Ur Coordinator - Pricila Pyle CLIA [id number] Lymphocytes/100 WBC (Bld) 15.4 % Low 20.0-40.0 [facility] Comment on above: Performed By: #### T ROP2 #### [address] [place] [address] Ur Coordinator - Pricila OLSENIA [id number] MCH (RBC) [Entitic mass] 30.2 pg Normal 27.0-31.0 [facility] Comment on above: Performed By: #### T ROP2 #### [place] [address] [place] [address] Ur Coordinator - Pricila OLSENIA [id number] MCHC (RBC) [Mass/Vol] 35.0 g/dL Normal 32.0-36.0 [facility] Comment on above: Performed By: #### T ROP2 #### [place] [address] [place] [address] Ur Coordinator - Pricila OLSENIA [id number] MCV (RBC) [Entitic vol] 86.3 fL Normal 80.0-100.0 [facility] Comment on above: Performed By: #### T ROP2 #### [place] [address] [place] [address] Ur Coordinator - Pricila Pyle CLIA [id number] Monocytes (Bld) [#/Vol] 0.61 10*3/uL High 0.10-0.60 [facility] Comment on above: Performed By: #### T ROP2 #### [place] [address] [place] [address] Ur Coordinator - Pricila Pyle CLIA [id number] Monocytes/100 WBC (Bld) 10.7 % High <=8.0 [facility] Comment on above: Performed By: #### T ROP2 #### [place] [address] [place] [address] Ur Coordinator - Pricila Pyle CLIA [id number] Neutrophils (Bld) [#/Vol] 3.87 10*3/uL Normal 1.40-6.50 [facility] Comment on above: Performed By: #### T ROP2 #### [place] [address] [place] [address] Ur Coordinator - Pricila Pyle CLIA [id number] Neutrophils/100 WBC (Bld) 67.7 % Normal 50.0-70.0 [facility] Comment on above: Performed By: #### T ROP2 #### [place] [address] [place] [address] Ur Coordinator - Pricila SALVADOR [id number] Nucleated RBC (Bld) [#/Vol] 0.00 10*3/uL Normal <=0.10 [facility] Comment on above: Performed By: #### T ROP2 #### [place] [address] [place] [address] Ur Coordinator - Pricila SALVADOR [id number] Platelet mean volume (Bld) [Entitic vol] 9.3 fL Normal 9.0-13.0 [facility] Comment on above: Performed By: #### T ROP2 #### [address] [place] [address] Ur Coordinator - Pricila OLSENIA [id number] Platelets (Bld) [#/Vol] 132 10*3/uL Normal 130-400 [facility] Comment on above: Performed By: #### T ROP2 #### [address] [place] [address] Ur Coordinator - Pricila OLSENIA [id number] RBC (Bld) [#/Vol] 4.37 10*6/uL Normal 4.00-6.30 [facility] Comment on above: Performed By: #### T ROP2 #### [address] [place] [address] Ur Coordinator - Pricila OLSENIA [id number] WBC (Bld) [#/Vol] 5.71 10*3/uL Normal 4.80-10.80 [facility] Comment on above: Performed By: #### T ROP2 #### [address] [place] [address] Ur Coordinator - Pricila SALVADOR [id number] Basic metabolic 2000 panelon 06-28-2023 Anion gap [Moles/Vol] 5.0 mmol/L Normal <=15.0 [facility] Comment on above: Performed By: #### 2 4321-2 #### [facility] [address] [place] [address] Ur Coordinator - Pricila Pyle CLIA [id number] Calcium [Mass/Vol] 9.2 mg/dL Normal 8.5-10.1 [facility] Comment on above: Performed By: #### 2 4321-2 #### [facility] [address] [place] [address] Ur Coordinator - Pricila Pyle CLIA [id number] Chloride [Moles/Vol] 106 mmol/L Normal 98-107 [facility] Comment on above: Performed By: #### 2 4321-2 #### [facility] [address] [place] [address] Ur Coordinator - Pricila Pyle CLIA [id number] CO2 [Moles/Vol] 24 mmol/L Normal 21-32 [facility] Comment on above: Performed By: #### 2 4321-2 #### [facility] [address] [place] [address] Ur Coordinator - Pricila Pyle CLIA [id number] Creatinine [Mass/Vol] 1.13 mg/dL Normal 0.67-1.17 [facility] Comment on above: Performed By: #### 2 4321-2 #### [facility] [address] [place] [address] Ur Coordinator - Pricila Pyle CLIA [id number] GFR/1.73 sq M.predicted MDRD (S/P/Bld) [Vol rate/Area] mL/min/{1.73_m2} Normal >=59 [facility] Comment on above: Performed By: #### 2 4321-2 #### [facility] [address] [place] [address] Ur Coordinator - Pricila Pyle CLIA [id number] Glucose [Mass/Vol] 105 mg/dL Normal 74-106 [facility] Comment on above: Performed By: #### 2 4321-2 #### [facility] [address] [place] [address] Ur Coordinator - Pricila SALVADOR [id number] HGFR GLOMERULAR FILTRATIO N RATE INTERPRETATION~The eGFR is calculated using the MDRD equation.~This equation has been validated in patients with chronic kidney disease;~however, it underestimates the GFR in healthy patients with GFR's over 60 mL/min.~The equation is not valid in children under the age of 18.~NOTE: Criteria for Chronic Kidney Disease:~ ~1. Kidney damage for at least three months, as defined~by structural or functional abnormalities of the kidney,~with or without decreased glomerular filtration rate, manifested by either:~* Pathological abnormalities or~* Markers of Kidney damage, including abnormalities in~the composition of the blood or urine or abnormalities in imaging tests.~ ~2. GFR <60 mL/min/1.73 m squared for at least three months, with or without kidney damage.~ Normal [facility] Comment on above: Performed By: #### 2 4321-2 #### [place] [address] [facility]. [place] [address] Ur Coordinator - Pricila SALVADOR [id number] Potassium [Moles/Vol] 4.6 mmol/L Normal 3.5-5.1 [facility] Comment on above: Performed By: #### 2 4321-2 #### [address] [place] [address] Ur Coordinator - Pricila SALVADOR [id number] Sodium [Moles/Vol] 135 mmol/L Low 136-145 [facility] Comment on above: Performed By: #### 2 4321-2 #### [facility] [address] [facility]. [place] [address] Ur Coordinator - Pricila SALVADOR [id number] Urea nitrogen [Mass/Vol] 18 mg/dL Normal 9-20 [facility] Comment on above: Performed By: #### 2 4321-2 #### [facility] [address] [facility]. [place] [address] Ur Coordinator - Pricila SALVADOR [id number] Anion gap [Moles/Vol] 5.0 mmol/L Normal <=15.0 [facility] Comment on above: Performed By: #### 2 4321-2 #### [facility] [address] [place] [address] Ur Coordinator - Pricila Pyle CLIA [id number] Calcium [Mass/Vol] 9.0 mg/dL Normal 8.5-10.1 [facility] Comment on above: Performed By: #### 2 4321-2 #### [facility] [address] [place] [address] Ur Coordinator - Pricila Pyle CLIA [id number] Chloride [Moles/Vol] 109 mmol/L High 98-107 [facility] Comment on above: Performed By: #### 2 4321-2 #### [facility] [address] [place] [address] Ur Coordinator - Pricila Pyle CLIA [id number] CO2 [Moles/Vol] 25 mmol/L Normal 21-32 [facility] Comment on above: Performed By: #### 2 4321-2 #### [facility] [address] [place] [address] Ur Coordinator - Pricila Pyle CLIA [id number] Creatinine [Mass/Vol] 1.11 mg/dL Normal 0.67-1.17 [facility] Comment on above: Performed By: #### 2 4321-2 #### [facility] [address] [place] [address] Ur Coordinator - Pricila Pyle CLIA [id number] GFR/1.73 sq M.predicted MDRD (S/P/Bld) [Vol rate/Area] mL/min/{1.73_m2} Normal >=59 [facility] Comment on above: Performed By: #### 2 4321-2 #### [facility] [address] [place] [address] Ur Coordinator - Pricila OLSENIA [id number] Glucose [Mass/Vol] 97 mg/dL Normal 74-106 [facility] Comment on above: Performed By: #### 2 4321-2 #### [facility] [address] [place] [address] Ur Coordinator - Pricila SALVADOR [id number] HGFR GLOMERULAR FILTRATIO N RATE INTERPRETATION~The eGFR is calculated using the MDRD equation.~This equation has been validated in patients with chronic kidney disease;~however, it underestimates the GFR in healthy patients with GFR's over 60 mL/min.~The equation is not valid in children under the age of 18.~NOTE: Criteria for Chronic Kidney Disease:~ ~1. Kidney damage for at least three months, as defined~by structural or functional abnormalities of the kidney,~with or without decreased glomerular filtration rate, manifested by either:~* Pathological abnormalities or~* Markers of Kidney damage, including abnormalities in~the composition of the blood or urine or abnormalities in imaging tests.~ ~2. GFR <60 mL/min/1.73 m squared for at least three months, with or without kidney damage.~ Normal [facility] Comment on above: Performed By: #### 2 4321-2 #### [facility] [address] [place] [address] Ur Coordinator - Pricila SALVADOR [id number] Potassium [Moles/Vol] 4.8 mmol/L Normal 3.5-5.1 [facility] Comment on above: Performed By: #### 2 4321-2 #### [facility] [address] [place] [address] Ur Coordinator - Pricila SALVADOR [id number] Sodium [Moles/Vol] 139 mmol/L Normal 136-145 [facility] Comment on above: Performed By: #### 2 4321-2 #### [facility] [address] [place] [address] Ur Coordinator - Pricila SALVADOR [id number] Urea nitrogen [Mass/Vol] 17 mg/dL Normal 9-20 [facility] Comment on above: Performed By: #### 2 4321-2 #### [facility] [address] [place] [address] Ur Coordinator - Pricila SALVADOR [id number] CBC W Auto Differential pane l (Bld)on 06-28-2023 Basophils (Bld) [#/Vol] 0.05 10*3/uL Normal <=0.70 [facility] Comment on above: Performed By: #### 1 9122-10, #### [facility] [address] [place] [address] Ur Coordinator - Pricila OLSENIA [id number] Basophils/100 WBC (Bld) 0.7 % Normal <=2.0 [facility] Comment on above: Performed By: #### 1 9122-10, #### [facility] [address] [place] [address] Ur Coordinator - Pricila OLSENIA [id number] Eosinophils (Bld) [#/Vol] 0.26 10*3/uL Normal <=0.70 [facility] Comment on above: Performed By: #### 1 9122-10, #### [place] [address] [place] [address] Ur Coordinator - Pricila OLSENIA [id number] Eosinophils/100 WBC (Bld) 3.6 % Normal <=10.0 [facility] Comment on above: Performed By: #### 1 9122-10, #### [address] [place] [address] Ur Coordinator - Pricila SALVADOR [id number] Erythrocyte distribution width (RBC) [Entitic vol] 43.6 fL Normal 35.1-43.9 [facility] Comment on above: Performed By: #### 1 9122-10, #### [facility] [address] [place] [address] Ur Coordinator - Pricila OLSENIA [id number] Hematocrit (Bld) [Volume fraction] 41.5 % Normal 40.0-54.0 [facility] Comment on above: Performed By: #### 1 9122-10, #### [facility] [address] [place] [address] Ur Coordinator - Pricila OLSENIA [id number] Hemoglobin (Bld) [Mass/Vol] 14.8 g/dL Normal 14.0-18.0 [facility] Comment on above: Performed By: #### 1 9122-10, #### [facility] [address] [place] [address] Ur Coordinator - Pricila OLSENIA [id number] Immature granulocytes (Bld) [#/Vol] 0.02 10*3/uL Normal <=0.10 [facility] Comment on above: Performed By: #### 1 9122-10, #### [facility] [address] [facility]. [place] [address] Ur Coordinator - Pricila OLSENIA [id number] Immature granulocytes/100 WBC (Bld) 0.30 % Normal <=1.50 [facility] Comment on above: Performed By: #### 1 9122-10, #### [address] [place] [address] Ur Coordinator - Pricila OLSENIA [id number] Lymphocytes (Bld) [#/Vol] 1.33 10*3/uL Normal 1.20-3.40 [facility] Comment on above: Performed By: #### 1 9122-10, #### [place] [address] Ur Coordinator - Pricila OLSENIA [id number] Lymphocytes/100 WBC (Bld) 18.2 % Low 20.0-40.0 [facility] Comment on above: Performed By: #### 1 9122-10, #### [facility] [address] [facility]. [place] [address] Ur Coordinator - Pricila OLSENIA [id number] MCH (RBC) [Entitic mass] 30.3 pg Normal 27.0-31.0 [facility] Comment on above: Performed By: #### 1 9122-10, #### [address] [address] Ur Coordinator - Pricila SALVADOR [id number] MCHC (RBC) [Mass/Vol] 35.7 g/dL Normal 32.0-36.0 [facility] Comment on above: Performed By: #### 1 9122-10, #### [facility] [address] [place] [address] Ur Coordinator - Pricila OLSENIA [id number] MCV (RBC) [Entitic vol] 84.9 fL Normal 80.0-100.0 [facility] Comment on above: Performed By: #### 1 9122-10, #### [address] [place] [address] Ur Coordinator - Pricila OLSENIA [id number] Monocytes (Bld) [#/Vol] 0.81 10*3/uL High 0.10-0.60 [facility] Comment on above: Performed By: #### 1 9122-10, #### [place] [address] [place] [address] Ur Coordinator - Pricila OLSENIA [id number] Monocytes/100 WBC (Bld) 11.1 % High <=8.0 [facility] Comment on above: Performed By: #### 1 9122-10, #### [address] [place] [address] Ur Coordinator - Pricila OLESNIA [id number] Neutrophils (Bld) [#/Vol] 4.83 10*3/uL Normal 1.40-6.50 [facility] Comment on above: Performed By: #### 1 9122-10, #### [place] [address] [place] [address] Ur Coordinator - Pricila Pyle CLIA [id number] Neutrophils/100 WBC (Bld) 66.1 % Normal 50.0-70.0 [facility] Comment on above: Performed By: #### 1 9122-10, 14360-5 #### [address] [place] [address] Ur Coordinator - Pricila SALVADOR [id number] Nucleated RBC (Bld) [#/Vol] 0.00 10*3/uL Normal <=0.10 [facility] Comment on above: Performed By: #### 1 9123-9, 58668-8 #### [address] [place] [address] Ur Coordinator - Pricila OLSENIA [id number] Platelet mean volume (Bld) [Entitic vol] 9.1 fL Normal 9.0-13.0 [facility] Comment on above: Performed By: #### 1 9123-9, 07572-9 #### [place] [address] Ur Coordinator - Pricila SALVADOR [id number] Platelets (Bld) [#/Vol] 169 10*3/uL Normal 130-400 [facility] Comment on above: Performed By: #### 1 9123-9, 76037-6 #### [place] [address] Ur Coordinator - Pricila SALVADOR [id number] RBC (Bld) [#/Vol] 4.89 10*6/uL Normal 4.00-6.30 [facility] Comment on above: Performed By: #### 1 9123-9, 71849-6 #### [address] [place] [address] Ur Coordinator - Pricila SALVADOR [id number] WBC (Bld) [#/Vol] 7.30 10*3/uL Normal 4.80-10.80 [facility] Comment on above: Performed By: #### 1 9123-9, 59583-2 #### [address] [place] [address] Ur Coordinator - Pricila SALVADOR [id number] CBC panel Auto (Bld)on 06-27 Erythrocyte distribution width (RBC) [Entitic vol] 43.8 fL Normal 35.1-43.9 [facility] Comment on above: Performed By: #### 5 8410-2 #### [place] [address] [facility]. [place] [address] Ur Coordinator - Pricila OLSENIA [id number] Hematocrit (Bld) [Volume fraction] 37.8 % Low 40.0-54.0 [facility] Comment on above: Performed By: #### 5 8410-2 #### [address] [place] [address] Ur Coordinator - Pricila OLSENIA [id number] Hemoglobin (Bld) [Mass/Vol] 13.6 g/dL Low 14.0-18.0 [facility] Comment on above: Performed By: #### 5 8410-2 #### [address] [place] [address] Ur Coordinator - Pricila OLSENIA [id number] MCH (RBC) [Entitic mass] 30.3 pg Normal 27.0-31.0 [facility] Comment on above: Performed By: #### 5 8410-2 #### [address] [place] [address] Ur Coordinator - Pricila OLSENIA [id number] MCHC (RBC) [Mass/Vol] 36.0 g/dL Normal 32.0-36.0 [facility] Comment on above: Performed By: #### 5 8410-2 #### [address] [place] [address] Ur Coordinator - Pricila OLSENIA [id number] MCV (RBC) [Entitic vol] 84.2 fL Normal 80.0-100.0 [facility] Comment on above: Performed By: #### 5 8410-2 #### [address] [place] [address] Ur Coordinator - Pricila OLSENIA [id number] Platelet mean volume (Bld) [Entitic vol] 9.6 fL Normal 9.0-13.0 [facility] Comment on above: Performed By: #### 5 8410-2 #### [facility] [address] [place] [address] Ur Coordinator - Pricila SALVADOR [id number] Platelets (Bld) [#/Vol] 149 10*3/uL Normal 130-400 [facility] Comment on above: Performed By: #### 5 8410-2 #### [facility] [address] [place] [address] Ur Coordinator - Pricila SALVADOR [id number] RBC (Bld) [#/Vol] 4.49 10*6/uL Normal 4.00-6.30 [facility] Comment on above: Performed By: #### 5 8410-2 #### [facility] [address] [place] [address] Ur Coordinator - Pricila SALVADOR [id number] WBC (Bld) [#/Vol] 5.37 10*3/uL Normal 4.80-10.80 [facility] Comment on above: Performed By: #### 5 8410-2 #### [facility] [address] [place] [address] Ur Coordinator - Pricila SALVADOR [id number] PT Coag (PPP) [Time]on 06-27 HPTINR INR REFERENCE RANGE INTERPRETATION Patients on Coumadin 2.0 - 3.0 Patients with mechanical heart valves 2.5 - 3.5 Normal [facility] Comment on above: Performed By: #### T ROP2 #### [facility] [address] [place] [address] Ur Coordinator - Pricila SALVADOR [id number] INR Coag (PPP) [Relative time] 1.1 {INR} Normal 0.8-1.1 [facility] Comment on above: Performed By: #### T ROP2 #### [facility] [address] [place] [address] Ur Coordinator - Pricila SALVADOR [id number] PT with INRon 06-28-2023 PT Coag (PPP) [Time] 11.5 s Normal 9.3-11.5 [facility] Comment on above: Performed By: #### T ROP2 #### [facility] [address] [place] [address] Ur Coordinator - Pricila OLSENIA [id number] Basic metabolic 2000 panelon 06-27-2023 Anion gap [Moles/Vol] 5.0 mmol/L Normal <=15.0 [facility] Comment on above: Performed By: #### T ROP2 #### [facility] [address] [place] [address] Ur Coordinator - Pricila OLSENIA [id number] Calcium [Mass/Vol] 8.9 mg/dL Normal 8.5-10.1 [facility] Comment on above: Performed By: #### T ROP2 #### [facility] [address] [place] [address] Ur Coordinator - Pricila OLSENIA [id number] Chloride [Moles/Vol] 106 mmol/L Normal 98-107 [facility] Comment on above: Performed By: #### T ROP2 #### [facility] [address] [place] [address] Ur Coordinator - Pricila OLSENIA [id number] CO2 [Moles/Vol] 26 mmol/L Normal 21-32 [facility] Comment on above: Performed By: #### T ROP2 #### [facility] [address] [place] [address] Ur Coordinator - Pricila OLSENIA [id number] Creatinine [Mass/Vol] 1.18 mg/dL High 0.67-1.17 [facility] Comment on above: Performed By: #### T ROP2 #### [facility] [address] [place] [address] Ur Coordinator - Pricila Pyle CLIA [id number] GFR/1.73 sq M.predicted MDRD (S/P/Bld) [Vol rate/Area] mL/min/{1.73_m2} Normal >=59 [facility] Comment on above: Performed By: #### T ROP2 #### [facility] [address] [place] [address] Ur Coordinator - Pricila OLSENPA [id number] Glucose [Mass/Vol] 104 mg/dL Normal 74-106 [facility] Comment on above: Performed By: #### T ROP2 #### [facility] [address] [facility]. [place] [address] Ur Coordinator - Pricila SALVADOR [id number] HGFR GLOMERULAR FILTRATIO N RATE INTERPRETATION~The eGFR is calculated using the MDRD equation.~This equation has been validated in patients with chronic kidney disease;~however, it underestimates the GFR in healthy patients with GFR's over 60 mL/min.~The equation is not valid in children under the age of 18.~NOTE: Criteria for Chronic Kidney Disease:~ ~1. Kidney damage for at least three months, as defined~by structural or functional abnormalities of the kidney,~with or without decreased glomerular filtration rate, manifested by either:~* Pathological abnormalities or~* Markers of Kidney damage, including abnormalities in~the composition of the blood or urine or abnormalities in imaging tests.~ ~2. GFR <60 mL/min/1.73 m squared for at least three months, with or without kidney damage.~ Normal [facility] Comment on above: Performed By: #### T ROP2 #### [facility] [address] [facility]. [place] [address] Ur Coordinator - Pricila SALVADOR [id number] Potassium [Moles/Vol] 4.7 mmol/L Normal 3.5-5.1 [facility] Comment on above: Performed By: #### T ROP2 #### [facility] [address] [facility]. [place] [address] [facility] [id number] Sodium [Moles/Vol] 137 mmol/L Normal 136-145 [facility] Comment on above: Performed By: #### T ROP2 #### [facility] [address] [facility]. [place] [address] [facility] [id number] Urea nitrogen [Mass/Vol] 20 mg/dL Normal 9-20 [facility] Comment on above: Performed By: #### T ROP2 #### [address] [place] [address] Ur Coordinator - Pricila SALVADOR [id number] CBC panel Auto (Bld)on 06-26 Erythrocyte distribution width (RBC) [Entitic vol] 43.8 fL Normal 35.1-43.9 [facility] Comment on above: Performed By: #### T ROP2 #### [address] [place] [address] Ur Coordinator - Pricila SALVADOR [id number] Hematocrit (Bld) [Volume fraction] 36.9 % Low 40.0-54.0 [facility] Comment on above: Performed By: #### T ROP2 #### [address] [place] [address] Ur Coordinator - Pricila SALVADOR [id number] Hemoglobin (Bld) [Mass/Vol] 13.1 g/dL Low 14.0-18.0 [facility] Comment on above: Performed By: #### T ROP2 #### [address] [place] [address] Ur Coordinator - Pricila SALVADOR [id number] MCH (RBC) [Entitic mass] 30.0 pg Normal 27.0-31.0 [facility] Comment on above: Performed By: #### T ROP2 #### [address] [place] [address] Ur Coordinator - Pricila SALVADOR [id number] MCHC (RBC) [Mass/Vol] 35.5 g/dL Normal 32.0-36.0 [facility] Comment on above: Performed By: #### T ROP2 #### [address] [place] [address] Ur Coordinator - Pricila OLSENIA [id number] MCV (RBC) [Entitic vol] 84.4 fL Normal 80.0-100.0 [facility] Comment on above: Performed By: #### T ROP2 #### [address] [place] [address] Ur Coordinator - Pricila OLSENIA [id number] Platelet mean volume (Bld) [Entitic vol] 9.6 fL Normal 9.0-13.0 [facility] Comment on above: Performed By: #### T ROP2 #### [address] [place] [address] Ur Coordinator - Pricila Pyle CLIA [id number] Platelets (Bld) [#/Vol] 142 10*3/uL Normal 130-400 [facility] Comment on above: Performed By: #### T ROP2 #### [address] [place] [address] Ur Coordinator - Pricila OLSENIA [id number] RBC (Bld) [#/Vol] 4.37 10*6/uL Normal 4.00-6.30 [facility] Comment on above: Performed By: #### T ROP2 #### [address] [place] [address] Ur Coordinator - Pricila OLSENIA [id number] WBC (Bld) [#/Vol] 5.52 10*3/uL Normal 4.80-10.80 [facility] Comment on above: Performed By: #### T ROP2 #### [address] [place] [address] Ur Coordinator - Pricila OLSENIA [id number] CBC W Auto Differential pane l (Bld)on 06-26-2023 Basophils (Bld) [#/Vol] 0.06 10*3/uL Normal <=0.70 [facility] Comment on above: Performed By: #### T ROP2 #### [address] [place] [address] Ur Coordinator - Pricila OLSENIA [id number] Basophils/100 WBC (Bld) 1.0 % Normal <=2.0 [facility] Comment on above: Performed By: #### T ROP2 #### [address] [place] [address] Ur Coordinator - Pricila Pyle CLIA [id number] Eosinophils (Bld) [#/Vol] 0.18 10*3/uL Normal <=0.70 [facility] Comment on above: Performed By: #### T ROP2 #### [place] [address] [place] [address] Ur Coordinator - Pricila Pyle CLIA [id number] Eosinophils/100 WBC (Bld) 3.0 % Normal <=10.0 [facility] Comment on above: Performed By: #### T ROP2 #### [address] [place] [address] Ur Coordinator - Pricila OLSENIA [id number] Erythrocyte distribution width (RBC) [Entitic vol] 45.5 fL High 35.1-43.9 [facility] Comment on above: Performed By: #### T ROP2 #### [address] [place] [address] Ur Coordinator - Pricila Pyle CLIA [id number] Hematocrit (Bld) [Volume fraction] 41.3 % Normal 40.0-54.0 [facility] Comment on above: Performed By: #### T ROP2 #### [address] [place] [address] Ur Coordinator - Pricila Pyle CLIA [id number] Hemoglobin (Bld) [Mass/Vol] 14.4 g/dL Normal 14.0-18.0 [facility] Comment on above: Performed By: #### T ROP2 #### [address] [place] [address] Ur Coordinator - Pricila Pyle CLIA [id number] Immature granulocytes (Bld) [#/Vol] 0.01 10*3/uL Normal <=0.10 [facility] Comment on above: Performed By: #### T ROP2 #### [address] [place] [address] Ur Coordinator - Pricila Pyle CLIA [id number] Immature granulocytes/100 WBC (Bld) 0.20 % Normal <=1.50 [facility] Comment on above: Performed By: #### T ROP2 #### [place] [address] [place] [address] Ur Coordinator - Pricila OLSENIA [id number] Lymphocytes (Bld) [#/Vol] 1.07 10*3/uL Low 1.20-3.40 [facility] Comment on above: Performed By: #### T ROP2 #### [place] [address] [place] [address] Ur Coordinator - Pricila OLSENIA [id number] Lymphocytes/100 WBC (Bld) 17.6 % Low 20.0-40.0 [facility] Comment on above: Performed By: #### T ROP2 #### [address] [place] [address] Ur Coordinator - Pricila OLSENIA [id number] MCH (RBC) [Entitic mass] 29.9 pg Normal 27.0-31.0 [facility] Comment on above: Performed By: #### T ROP2 #### [address] [place] [address] Ur Coordinator - Pricila OLSENIA [id number] MCHC (RBC) [Mass/Vol] 34.9 g/dL Normal 32.0-36.0 [facility] Comment on above: Performed By: #### T ROP2 #### [address] [place] [address] Ur Coordinator - Pricila OLSENIA [id number] MCV (RBC) [Entitic vol] 85.9 fL Normal 80.0-100.0 [facility] Comment on above: Performed By: #### T ROP2 #### [address] [place] [address] Ur Coordinator - Pricila OLSENIA [id number] Monocytes (Bld) [#/Vol] 0.58 10*3/uL Normal 0.10-0.60 [facility] Comment on above: Performed By: #### T ROP2 #### [address] [place] [address] Ur Coordinator - Pricila Pyle CLIA [id number] Monocytes/100 WBC (Bld) 9.6 % High <=8.0 [facility] Comment on above: Performed By: #### T ROP2 #### [place] [address] [place] [address] Ur Coordinator - Pricila Pyle CLIA [id number] Neutrophils (Bld) [#/Vol] 4.17 10*3/uL Normal 1.40-6.50 [facility] Comment on above: Performed By: #### T ROP2 #### [place] [address] [place] [address] Ur Coordinator - Pricila Pyle CLIA [id number] Neutrophils/100 WBC (Bld) 68.6 % Normal 50.0-70.0 [facility] Comment on above: Performed By: #### T ROP2 #### [place] [address] [place] [address] Ur Coordinator - Pricila Pyle CLIA [id number] Nucleated RBC (Bld) [#/Vol] 0.00 10*3/uL Normal <=0.10 [facility] Comment on above: Performed By: #### T ROP2 #### [address] [place] [address] Ur Coordinator - Pricila Pyle CLIA [id number] Platelet mean volume (Bld) [Entitic vol] 9.4 fL Normal 9.0-13.0 [facility] Comment on above: Performed By: #### T ROP2 #### [address] [place] [address] Ur Coordinator - Pricila Pyle CLIA [id number] Platelets (Bld) [#/Vol] 168 10*3/uL Normal 130-400 [facility] Comment on above: Performed By: #### T ROP2 #### [place] [address] [place] [address] Ur Coordinator - Pricila Pyle CLIA [id number] RBC (Bld) [#/Vol] 4.81 10*6/uL Normal 4.00-6.30 [facility] Comment on above: Performed By: #### T ROP2 #### [facility] [address] [place] [address] Ur Coordinator - Pricila SALVADOR [id number] WBC (Bld) [#/Vol] 6.07 10*3/uL Normal 4.80-10.80 [facility] Comment on above: Performed By: #### T ROP2 #### [facility] [address] [place] [address] Ur Coordinator - Pricila SALVADOR [id number] CHEST AP PORTABLEon 06-26-19 CHEST AP PORTABLE EXAM: CHEST AP TIGIST BLE 06/26/2023 COMPARISON STUDY: CT of the chest 10/21/2020. FINDINGS: Upright AP chest image was obtained. HISTORY: Pain IMPRESSION: 1. There is moderate globular enlargement of the cardiac silhouette. Left atrial enlargement results in abnormal splaying of the gladys. Prior coronary artery stenting. 2. No dense consolidation, effusion, edema, failure, or pneumothorax. 3. 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 No acute osseous abnormality. Normal [facility] Comprehensive metabolic 2000 panelon 06-26-2023 Albumin [Mass/Vol] 4.0 g/dL Normal 3.4-5.0 [facility] Comment on above: Performed By: #### 1 9123-9, 90044-2 #### [facility] [address] [place] [address] Ur Coordinator - Pricila SALVADOR [id number] ALP [Catalytic activity/Vol] 92 U/L Normal 50-136 [facility] Comment on above: Performed By: #### 1 9123-9, 29142-5 #### [facility] [address] [place] [address] Ur Coordinator - PricilaFormerly [facility] MADELEINE [id number] ALT [Catalytic activity/Vol] 29 U/L Normal 16-63 [facility] Comment on above: Performed By: #### 1 9123-9, 07255-9 #### [facility] [address] [place] [address] Ur Coordinator - Pricila OLSENIA [id number] Anion gap [Moles/Vol] 2.0 mmol/L Normal <=15.0 [facility] Comment on above: Performed By: #### 1 23-9, 80224-5 #### [facility] [address] [place] [address] Ur Coordinator - Pricila OLSENIA [id number] AST [Catalytic activity/Vol] 25 U/L Normal 15-37 [facility] Comment on above: Performed By: #### 1 9122-9, 10590-7 #### [facility] [address] [place] [address] Ur Coordinator - Pricila SALVADOR [id number] Bilirubin [Mass/Vol] 0.7 mg/dL Normal 0.2-1.0 [facility] Comment on above: Performed By: #### 1 9122-, 99207-6 #### [facility] [address] [place] [address] Ur Coordinator - Pricila OLSENIA [id number] Calcium [Mass/Vol] 9.2 mg/dL Normal 8.5-10.1 [facility] Comment on above: Performed By: #### 1 23-9, 62276-1 #### [facility] [address] [place] [address] Ur Coordinator - Pricila OLSENIA [id number] Chloride [Moles/Vol] 107 mmol/L Normal 98-107 [facility] Comment on above: Performed By: #### 1 23-9, 15936-8 #### [facility] [address] [place] [address] Ur Coordinator - Pricila OLSENIA [id number] CO2 [Moles/Vol] 28 mmol/L Normal 21-32 [facility] Comment on above: Performed By: #### 1 23-9, 46552-6 #### [facility] [address] [place] [address] Ur Coordinator - Pricila SALVADOR [id number] Creatinine [Mass/Vol] 1.18 mg/dL High 0.67-1.17 [facility] Comment on above: Performed By: #### 1 9123-9, #### [facility] [address] [place] [address] Ur Coordinator - Pricila SALVADOR [id number] GFR/1.73 sq M.predicted MDRD (S/P/Bld) [Vol rate/Area] mL/min/{1.73_m2} Normal >=59 [facility] Comment on above: Performed By: #### 1 23-9, #### [facility] [address] [place] [address] Ur Coordinator - Pricila SALVADOR [id number] Glucose [Mass/Vol] 98 mg/dL Normal 74-106 [facility] Comment on above: Performed By: #### 1 9123-9, #### [facility] [address] [place] [address] Ur Coordinator - Pricila SALVADOR [id number] HGFR GLOMERULAR FILTRATIO N RATE INTERPRETATION~The eGFR is calculated using the MDRD equation.~This equation has been validated in patients with chronic kidney disease;~however, it underestimates the GFR in healthy patients with GFR's over 60 mL/min.~The equation is not valid in children under the age of 18.~NOTE: Criteria for Chronic Kidney Disease:~ ~1. Kidney damage for at least three months, as defined~by structural or functional abnormalities of the kidney,~with or without decreased glomerular filtration rate, manifested by either:~* Pathological abnormalities or~* Markers of Kidney damage, including abnormalities in~the composition of the blood or urine or abnormalities in imaging tests.~ ~2. GFR <60 mL/min/1.73 m squared for at least three months, with or without kidney damage.~ Normal [facility] Comment on above: Performed By: #### 1 9123-9, 57248-4 #### [facility] [address] [place] [address] Ur Coordinator - Pricila SALVADOR [id number] Potassium [Moles/Vol] 4.8 mmol/L Normal 3.5-5.1 [facility] Comment on above: Performed By: #### 1 9123-9, #### [facility] [address] [place] [address] Ur Coordinator - Pricila SALVADOR [id number] Protein [Mass/Vol] 7.7 g/dL Normal 6.4-8.2 [facility] Comment on above: Performed By: #### 1 9123-9, #### [facility] [address] [place] [address] Ur Coordinator - Pricila SALVADOR [id number] Sodium [Moles/Vol] 137 mmol/L Normal 136-145 [facility] Comment on above: Performed By: #### 1 9123-9, #### [place] [address] [place] [address] Ur Coordinator - Pricila SALVADOR [id number] Urea nitrogen [Mass/Vol] 17 mg/dL Normal 9-20 [facility] Comment on above: Performed By: #### 1 9123-9, #### [place] [address] [place] [address] Ur Coordinator - Pricila SALVADOR [id number] Fibrin D-dimer Qn (PPP)on Fibrin D-dimer DDU (PPP) [Mass/Vol] 0.49 mg/L Normal 0.19-0.50 [facility] Comment on above: Performed By: #### T ROP2 #### [facility] [address] [facility] [place] [address] Ur Coordinator - Pricila SALVADOR [id number] HDIMER DIMER UNIT CONVERSIO N Effective October 28, 2013 [facility] has changed their unit of measure for D-Dimer testing from ng/mL to mg/L. To convert to ng/mL multiply result by 1000. Normal [facility] Comment on above: Performed By: #### T ROP2 #### [facility] [address] [place] [address] Ur Coordinator - Pricila SALVADOR [id number] MAGNESIUMon 06-26-2023 Magnesium [Mass/Vol] 2.5 mg/dL Normal 1.6-2.6 [facility] Comment on above: Performed By: #### 1 9123-9, 36371-5 #### [facility] [address] [place] [address] Ur Coordinator - Pricila SALVADOR [id number] PT and aPTT panel Coag (PPP) on 06-26-2023 aPTT Coag (PPP) [Time] 32.7 s High 23.5-31.3 [facility] Comment on above: Performed By: #### T ROP2 #### [facility] [address] [place] [address] Ur Coordinator - Pricila SALVADOR [id number] HPTINR INR REFERENCE RANGE INTERPRETATION Patients on Coumadin 2.0 - 3.0 Patients with mechanical heart valves 2.5 - 3.5 Normal [facility] Comment on above: Performed By: #### T ROP2 #### [facility] [address] [place] [address] Ur Coordinator - Pricila SALVADOR [id number] INR Coag (PPP) [Relative time] 1.1 {INR} Normal 0.8-1.1 [facility] Comment on above: Performed By: #### T ROP2 #### [facility] [address] [place] [address] Ur Coordinator - Pricila SALVADOR [id number] PT Coag (PPP) [Time] 11.6 s High 9.3-11.5 [facility] Comment on above: Performed By: #### T ROP2 #### [facility] [address] [place] [address] Ur Coordinator - Pricila SALVADOR [id number] TROPONIN HIGH SENSITIVITYon 06-26-2023 TNIH 13.00 pg/mL Normal <=59.00 [facility] Comment on above: Result Comment: <59 pg/mL is considered a negative result. Performed By: #### T ROP2 #### [facility] [address] [place] [address] Ur Coordinator - Pricila OLSENSUDHA [id number] TNIH 11.20 pg/mL Normal <=59.00 [facility] Comment on above: Result Comment: <59 pg/mL is considered a negative result. Performed By: #### T ROP2 #### [facility] [address] [place] [address] Ur Coordinator - Pricila OLSENSUDHA [id number] No Panel Informationon 03-14 Atrial Rate 56 BPM [facility] P [place] 63 degrees [facility] P-R Interval 158 ms [facility] Q-T Interval 444 ms [facility] QRS Duration 126 ms [facility] QTC Calculation (Bezet) 428 ms [facility] R [place] 61 degrees [facility] T [place] 40 degrees [facility] Ventricular Rate [address] [facility] Sinus bradycardia wi th Premature atrial complexes Right bundle branch block Abnormal ECG Confirmed by DINH YAN, CAROLYN ([id number]) on 03/14/2022 10:40:29 AM [facility] Basic metabolic 2000 panelon 03-13-2022 Anion gap [Moles/Vol] 16 mmol/L 10 - 2 0 mmol/L [facility] Calcium [Mass/Vol] 9.3 mg/dL 8.4 - 10. 2 mg/dL [facility] Chloride [Moles/Vol] 102 mmol/L 98 - 10 8 mmol/L [facility] Creatinine [Mass/Vol] 1.17 mg/dL 0.80 - 1.30 mg/dL [facility] GFR/1.73 sq M.predicted CKD-EPI (S/P/Bld) [Vol rate/Area] 66 - PINF [facility] Comment on above: Estimated GFR was ca lculated using the 2020 CKD-EPI creatinine equation. Glucose [Mass/Vol] 94 mg/dL 65 - 99 mg/dL [facility] HCO3 [Moles/Vol] 25 mmol/L 21 - 32 mmol/L [facility] Interpretation and review of laboratory results Normal [facility] Potassium [Moles/Vol] 4.7 mmol/L 3.5 - 5.1 mmol/L [facility] Sodium [Moles/Vol] 138 mmol/L 135 - 145 mmol/L [facility] Urea nitrogen [Mass/Vol] 20 mg/dL 8 - 25 mg/dL [facility] Urea nitrogen/Creatinine [Mass ratio] 17.1 mg/mg 10.0 - 20.0 [facility] Laborator y Services has implemented the eGFR calculation approach that does not have a coefficient for race that conforms to the NKF-ASN Task Force Recommendations. [facility] Blood type and Indirect anti body screen panel (Bld)on 03-13-2022 ABO and Rh group Nom (Bld) Blood group O Rh(D) positive [facility] Blood group antibody screen Ql Negative [facility] Specimen Expires 04/03/2022 23:59 EST [facility] CBC panel Auto (Bld)on 03-13 Erythrocyte distribution width (RBC) [Entitic vol] 13.4 % 11.6 - 14.8 % [facility] Hematocrit (Bld) [Volume fraction] 40.5 % Low 41.0 - 53.0 % [facility] Hemoglobin (Bld) [Mass/Vol] 13.7 g/dL 13.5 - 17.5 g/dL [facility] Interpretation and review of laboratory results Abnormal [facility] MCH (RBC) [Entitic mass] 30.6 pg 26.0 - 34.0 pg [facility] MCHC (RBC) [Mass/Vol] 33.8 g/dL 31.0 - 37.0 g/dL [facility] MCV (RBC) [Entitic vol] 90.4 fL 80.0 - 100.0 fL [facility] Nucleated RBC (Bld) [#/Vol] 0.00 10*3/uL [facility] Nucleated RBC/100 WBC (Bld) [Ratio] 0.0 % [facility] Platelet mean volume (Bld) [Entitic vol] 9.9 fL 9.4 - 12.4 fL [facility] Platelets (Bld) [#/Vol] 147 10*3/uL Low [facility] RBC (Bld) [#/Vol] 4.48 10*6/uL Low [facility] ealth WBC (Bld) [#/Vol] 6.95 10*3/uL [facility] Coag (PPP) [Relative alannah e]on 03-13-2022 Interpretation and review of laboratory results Normal [facility] PT Coag (PPP) [Time] 13.8 s [facility] During the induction phase of oral anticoagulation, the INR may not reflect the anticoagulation status of the patient. Therapeutic ranges for INR's are: Most clinical situations: INR 2.0-3.0 Mechanical Prosthetic Valve: INR 2.5-3.5 Critical: INR >5.0 [facility] Laboratory - CoagulationOrde red By: Vicky Livingston on 03-13-2022 aPTT Coag (Bld) [Time] 37 s High [facility] Laboratory - Coagulationon 0 03-13-2022 INR Coag (PPP) [Relative time] 1.1 {INR} 0.8 - 1.1 [facility] No Panel InformationOrdered By: Vicky Livingston on 03-13-2022 [facility] aPTT Coag (Bld) [Time]Ordere d By: Vicky Livingston on 03-13-2022 Interpretation and review of laboratory results Abnormal [facility] Therapeutic range fo r APTT's is 68 - 104 seconds [facility] Basic Metabolic Panelon 11-0 Anion gap [Moles/Vol] 7.00 mmol/L Low 8.00-16.00 [facility] Comment on above: Order Comment: Items in this order include: Basic Metabolic Panel, CBC with differential, Testing Performed By: [facility] [address] [place] [address]. [place] [address] Dr. Hong Colindres, Manager Clinical Performed By: #### C 215, C45 #### [facility] [address] [place] [address] [address] [place] [address] B/C Ratio 12.5 Ratio Normal [facility] Comment on above: Order Comment: Items in this order include: Basic Metabolic Panel, CBC with differential, Testing Performed By: [facility] [address] [place] [address]. [place] [address] Dr. Hong Colindres, Manager Clinical Performed By: #### C 215, C45 #### [facility] [address] [place] [address] [address] [place] [address] Calcium [Mass/Vol] 9.0 mg/dL Normal 8.3-10.6 [facility] Comment on above: Order Comment: Items in this order include: Basic Metabolic Panel, CBC with differential, Testing Performed By: [facility] [address] [place] [address] Dr. Hong Colindres, Manager Clinical Performed By: #### C 215, C45 #### [facility] [address] [place] [address] [address] [place] [address] Chloride [Moles/Vol] 106 mmol/L Normal 98-107 [facility] Comment on above: Order Comment: Items in this order include: Basic Metabolic Panel, CBC with differential, Testing Performed By: [facility] [address] [place] [address]. [place] [id number]. Hong Colindres, Manager Clinical Performed By: #### C 215, C45 #### [facility] [address] [place] [address] [address] [place] [address] CO2 [Moles/Vol] 25 mmol/L Normal 20-31 [facility] Comment on above: Order Comment: Items in this order include: Basic Metabolic Panel, CBC with differential, Testing Performed By: [facility] [address] [place] [address]. [place] [address] Dr. Hong Colindres, Manager Clinical Performed By: #### C 215, C45 #### [facility] [address] [place] [address] [place] [address] Creatinine [Mass/Vol] 1.2 mg/dL Normal 0.7-1.3 [facility] Comment on above: Order Comment: Items in this order include: Basic Metabolic Panel, CBC with differential, Testing Performed By: [facility] [address] [place] [address]. [place] [address] Dr. Hong Colindres, Manager Clinical Performed By: #### C 215, C45 #### [facility] [address] [place] [address] GFR 59 mL/min per 1.73 Low >60 [facility] Comment on above: Order Comment: Items in this order include: Basic Metabolic Panel, CBC with differential, Testing Performed By: [facility] [address] [place] [address]. [place] [address] Dr. Hong Colindres, Manager Clinical Result Comment: The GFR estimate is not adjusted for race. If the patient's race is -Ethiopian, the GFR estimate must be multiplied by a factor of 1.21. Performed By: #### C 215, C45 #### [facility] [address] [facility] [address] [place] [address] Glucose [Mass/Vol] 106 mg/dL Normal 74-106 [facility] Comment on above: Order Comment: Items in this order include: Basic Metabolic Panel, CBC with differential, Testing Performed By: [facility] [address] [place] [address]. [place] [address] Dr. Hong Colindres, Manager Clinical Performed By: #### C 215, C45 #### [facility], [facility]. [address] [place] [address] [place] [address] Potassium [Moles/Vol] 4.6 mmol/L Normal 3.5-5.1 [facility] Comment on above: Order Comment: Items in this order include: Basic Metabolic Panel, CBC with differential, Testing Performed By: [facility] [address] [place] [address]. [place] [address] Dr. Hong Colindres, Manager Clinical Performed By: #### C 215, C45 #### [facility], [facility]. [address] [place] [address] [address] [place] [address] Sodium [Moles/Vol] 138 mmol/L Normal 136-145 [facility] Comment on above: Order Comment: Items in this order include: Basic Metabolic Panel, CBC with differential, Testing Performed By: [facility] [address] [place] [address]. [place] [address] Dr. Hong Colindres, Manager Clinical Performed By: #### C 215, C45 #### [facility], [facility]. [address] [place] [address] [address] [place] [address] Urea nitrogen [Mass/Vol] 15 mg/dL Normal 9-23 [facility] Comment on above: Order Comment: Items in this order include: Basic Metabolic Panel, CBC with differential, Testing Performed By: [facility] [address] [place] [address]. [place] [address] Dr. Hong Colindres, Manager Clinical Performed By: #### C 215, C45 #### [facility], [facility]. [address] [place] [address] [place] [address] CBC with differentialon 11-0 -2020 BASO # 0.1 K CUMM Normal 0.0-0.2 [facility] Comment on above: Order Comment: Items in this order include: Basic Metabolic Panel, CBC with differential, Testing Performed By: [facility] [address] [place] [address] Dr. Hong Colindres, Manager Clinical Performed By: #### C 215, C45 #### [facility], [facility]. [address] [place] [address] [place] [address] Basophils/100 WBC (Bld) 1.0 % Normal 0.0-3.0 [facility] Comment on above: Order Comment: Items in this order include: Basic Metabolic Panel, CBC with differential, Testing Performed By: [facility] [address] [place] [address] Dr. Hong Colindres, Manager Clinical Performed By: #### C 215, C45 #### [facility], [facility]. [address] [place] [address] [place] [address] EOS # 0.3 K CUMM Normal 0.0-0.4 [facility] Comment on above: Order Comment: Items in this order include: Basic Metabolic Panel, CBC with differential, Testing Performed By: [facility] [address] [place] [address] [id number] [address] Hong Colindres, Manager Clinical Performed By: #### C 215, C45 #### [facility], [facility]. [address] [place] [address] [address] [place] [address] Eosinophils/100 WBC (Bld) 6.5 % Normal 0.0-7.0 [facility] Comment on above: Order Comment: Items in this order include: Basic Metabolic Panel, CBC with differential, Testing Performed By: [facility] [address] [place] [address]. [place] [address] Dr. Hong Colindres, Manager Clinical Performed By: #### C 215, C45 #### [facility], [facility]. [address] [facility] [address] [place] [address] Erythrocyte distribution width (RBC) [Ratio] 13.8 % Normal 11.5-15.5 [facility] Comment on above: Order Comment: Items in this order include: Basic Metabolic Panel, CBC with differential, Testing Performed By: [facility] [address] [place] [address]. [place] [address] Dr. Hong Colindres, Manager Clinical Performed By: #### C 215, C45 #### [facility], [facility]. [address] [facility] [address] [place] [address] Hematocrit (Bld) [Volume fraction] 39.1 % Low 42.0-52.0 [facility] Comment on above: Order Comment: Items in this order include: Basic Metabolic Panel, CBC with differential, Testing Performed By: [facility] [address] [place] [address]. [place] [address] Dr. Hong Colindres, Manager Clinical Performed By: #### C 215, C45 #### [facility], [facility]. [address] [place] [address] [address] [place] [address] Hemoglobin (Bld) [Mass/Vol] 13.4 g/dL Low 13.5-18.0 [facility] Comment on above: Order Comment: Items in this order include: Basic Metabolic Panel, CBC with differential, Testing Performed By: [facility] [address] [place] [address]. [place] [address] Dr. Hong Colindres, Manager Clinical Performed By: #### C 215, C45 #### [facility]. [address] [place] [address] [address] [place] [address] ImmGrn # 0.0 K CUMM Normal 0.0-0.3 [facility] Comment on above: Order Comment: Items in this order include: Basic Metabolic Panel, CBC with differential, Testing Performed By: [facility] [address] [place] [address]. [place] [address] Dr. Hong Colindres, Manager Clinical Performed By: #### C 215, C45 #### [facility] [address] [facility] [address] [place] [address] ImmGrn % 0.2 % Normal 0.0-3.0 [facility] Comment on above: Order Comment: Items in this order include: Basic Metabolic Panel, CBC with differential, Testing Performed By: [facility] [address] [place] [address]. [place] [address] Dr. Hong Colindres, Manager Clinical Performed By: #### C 215, C45 #### [facility] [address] [facility] [address] [place] [address] LYMPH # 0.8 K CUMM Normal 0.7-4.5 [facility] Comment on above: Order Comment: Items in this order include: Basic Metabolic Panel, CBC with differential, Testing Performed By: [facility] [address] [place] [address]. [place] [address] Dr. Hong Colindres, Manager Clinical Performed By: #### C 215, C45 #### [facility] [address] [facility] [address] [place] [address] Lymphocytes/100 WBC (Bld) 17.5 % Normal 14.0-46.0 [facility] Comment on above: Order Comment: Items in this order include: Basic Metabolic Panel, CBC with differential, Testing Performed By: [facility] [address] [place] [address]. [place] [address] Dr. Hong Colindres, Manager Clinical Performed By: #### C 215, C45 #### [facility] [address] [place] [address] MCH (RBC) [Entitic mass] 30.0 pg Normal 27.0-31.0 [facility] Comment on above: Order Comment: Items in this order include: Basic Metabolic Panel, CBC with differential, Testing Performed By: [facility] [facility] [place] [address] Dr. Hong Colindres, Manager Clinical Performed By: #### C 215, C45 #### [facility] [address] [place] [address] MCHC (RBC) [Mass/Vol] 34.3 g/dL Normal 32.0-36.0 [facility] Comment on above: Order Comment: Items in this order include: Basic Metabolic Panel, CBC with differential, Testing Performed By: [facility] [address] [place] [address]. [place] [address] Dr. Hong Colindres, Manager Clinical Performed By: #### C 215, C45 #### [facility] [address] [place] [address] Rd [address] [place] [address] MCV (RBC) [Entitic vol] 87.7 fL Normal 78.0-100.0 [facility] Comment on above: Order Comment: Items in this order include: Basic Metabolic Panel, CBC with differential, Testing Performed By: [facility] [address] [place] [address]. [place] [address] Dr. Hong Colindres, Manager Clinical Performed By: #### C 215, C45 #### [facility] [address] [place] [address] Rd [address] [place] [address] MONO # 0.5 K CUMM Normal 0.1-1.0 [facility] Comment on above: Order Comment: Items in this order include: Basic Metabolic Panel, CBC with differential, Testing Performed By: [facility] [address] [place] [address]. [place] [address] Dr. Hong Colindres, Manager Clinical Performed By: #### C 215, C45 #### [facility] [address] [place] [address] Rd [address] [place] [address] Monocytes/100 WBC (Bld) 10.0 % Normal 4.0-13.0 [facility] Comment on above: Order Comment: Items in this order include: Basic Metabolic Panel, CBC with differential, Testing Performed By: [facility] [address] [place] [address]. [place] [address] Dr. Hong Colindres, Manager Clinical Performed By: #### C 215, C45 #### [facility] [address] [place] [address] Rd [address] [place] [address] DAMIEN # 3.1 K CUMM Normal 1.8-7.8 [facility] Comment on above: Order Comment: Items in this order include: Basic Metabolic Panel, CBC with differential, Testing Performed By: [facility] [address] [place] [address]. [place] [address] Dr. Hong Colindres, Manager Clinical Performed By: #### C 215, C45 #### [facility] [address] [place] [address] [address] [place] [address] Neutrophils/100 WBC (Bld) 64.8 % Normal 40.0-74.0 [facility] Comment on above: Order Comment: Items in this order include: Basic Metabolic Panel, CBC with differential, Testing Performed By: [facility] [address] [place] [address]. [place] [address] Dr. Hong Colindres, Manager Clinical Performed By: #### C 215, C45 #### [facility], [facility]. [address] [place] [address] [address] [place] [address] Platelet mean volume (Bld) [Entitic vol] 9.4 fL Normal 8.9-12.6 [facility] Comment on above: Order Comment: Items in this order include: Basic Metabolic Panel, CBC with differential, Testing Performed By: [facility] [address] [place] [address]. [place] [address] Dr. Hong Colindres, Manager Clinical Performed By: #### C 215, C45 #### [facility]. [address] [place] [address] [address] [place] [address] PLT 170 K CUMM Normal 130-400 [facility] Comment on above: Order Comment: Items in this order include: Basic Metabolic Panel, CBC with differential, Testing Performed By: [facility] [address] [place] [address]. [place] [address] Dr. Hong Colindres, Manager Clinical Performed By: #### C 215, C45 #### [facility]. [address] [place] [address] [address] [place] [address] RBC 4.46 M CUMM Normal 4.20-5.80 [facility] Comment on above: Order Comment: Items in this order include: Basic Metabolic Panel, CBC with differential, Testing Performed By: [facility] [address] [facility] [place] [address] Dr. Hong Colindres, Manager Clinical Performed By: #### C 215, C45 #### [facility] [address] [place] [address] WBC 4.8 K CUMM Normal 3.8-10.6 [facility] Comment on above: Order Comment: Items in this order include: Basic Metabolic Panel, CBC with differential, Testing Performed By: [facility] [address] [facility] [place] [address] Dr. Hong Colindres, Manager Clinical Performed By: #### C 215, C45 #### [facility] [address] [place] [address] CBC WITH AUTO DIFFERENTIALon 02-07-2019 Basophils (Bld) [#/Vol] 0.04 10*3/uL [facility] Basophils/100 WBC (Bld) 0.7 % [facility] Eosinophils (Bld) [#/Vol] 0.37 10*3/uL [facility] Eosinophils/100 WBC (Bld) 6.6 % [facility] Erythrocyte distribution width (RBC) [Entitic vol] 13.1 % 11.6 - 14.8 % [facility] Hematocrit (Bld) [Volume fraction] 42.2 % 41 - 53 % [facility] Hemoglobin (Bld) [Mass/Vol] 14.4 g/dL 13.5 - 17.5 g/dL [facility] Immature granulocytes (Bld) [#/Vol] 0.02 10*3/uL [facility] Immature granulocytes/100 WBC (Bld) 0.40 % [facility] Comment on above: The IG parameter is the percentage of metamyelocytes, myelocytes, and promyelocytes. Lymphocytes (Bld) [#/Vol] 1.44 10*3/uL [facility] Lymphocytes/100 WBC (Bld) 25.8 % [facility] MCH (RBC) [Entitic mass] 30.3 pg 26 - 34 pg [facility] MCHC (RBC) [Mass/Vol] 34.1 g/dL 31 - 3 7 g/dL [facility] MCV (RBC) [Entitic vol] 88.7 fL 80 - 100 fL [facility] Monocytes (Bld) [#/Vol] 0.59 10*3/uL [facility] Monocytes/100 WBC (Bld) 10.6 % [facility] Neutrophils (Bld) [#/Vol] 3.12 10*3/uL [facility] Neutrophils/100 WBC (Bld) 55.9 % [facility] Nucleated RBC (Bld) [#/Vol] 0.00 10*3/uL [facility] Nucleated RBC/100 WBC (Bld) [Ratio] 0.0 % [facility] Platelet mean volume (Bld) [Entitic vol] 9.2 fL 9 - 15.5 fL [facility] Platelets (Bld) [#/Vol] 152 10*3/uL [facility] RBC (Bld) [#/Vol] 4.76 10*6/uL [facility] WBC (Bld) [#/Vol] 5.58 10*3/uL [facility] Comprehensive Metabolic Pane fabian 02-07-2019 Albumin [Mass/Vol] 4.0 g/dL 3.2 - 5.2 g/dL [facility] ALP [Catalytic activity/Vol] 59 U/L 40 - 150 U/L [facility] ALT [Catalytic activity/Vol] 35 U/L 14 - 65 U/L [facility] Anion gap [Moles/Vol] 9 mmol/L Low 10 - 2 0 mmol/L [facility] AST [Catalytic activity/Vol] 31 U/L 0 - 45 U/L [facility] Bilirubin [Mass/Vol] 0.5 mg/dL 0 - 1.3 mg/dL [facility] Calcium [Mass/Vol] 8.9 mg/dL 8.4 - 10. 2 mg/dL [facility] Chloride [Moles/Vol] 106 mmol/L 98 - 10 8 mmol/L [facility] Creatinine [Mass/Vol] 1.22 mg/dL 0.8 - 1.3 mg/dL [facility] GFR/1.73 sq M predicted among non-blacks MDRD (S/P/Bld) [Vol rate/Area] The eGFR should be used for monitoring renal function only and not for medication dosing. [facility] GFR/1.73 sq M.predicted CKD-EPI (S/P/Bld) [Vol rate/Area] 60 >=60 mL/min/1.73 m2 [facility] Glucose [Mass/Vol] 100 mg/dL High 65 - 99 mg/dL [facility] HCO3 [Moles/Vol] 28 mmol/L 21 - 32 mmol/L [facility] Interpretation and review of laboratory results Abnormal [facility] Potassium [Moles/Vol] 4.4 mmol/L 3.5 - 5.1 mmol/L [facility] Protein [Mass/Vol] 7.3 g/dL 6 - 8 g/dL [facility] Sodium [Moles/Vol] 139 mmol/L 135 - 145 mmol/L [facility] Urea nitrogen [Mass/Vol] 18 mg/dL 8 - 25 mg/dL [facility] Urea nitrogen/Creatinine [Mass ratio] 14.8 mg/mg [facility] Vital Signs Date Time Vital Sign Value Performing Clinician Facility 07-05-2024 08:55-0400 Body height 167.6 cm Sunil Delacruz MD Work Phone: [facility] 07-05-2024 08:55-0400 Body mass index (BMI) [Ratio] 28.93 kg/m2 Sunil Delacruz MD Work Phone: [facility] 07-05-2024 08:55-0400 Body temperature 97.59 [degF] Sunil Delacruz MD Work Phone: [facility] 07-05-2024 08:55-0400 Body weight 81.3 kg Sunil Delacruz MD Work Phone: [facility] 07-05-2024 08:55-0400 Diastolic blood pressure 77 mm[Hg] Sunil Delacruz MD Work Phone: [facility] 07-05-2024 08:55-0400 Heart rate 71 /min Sunil Delacruz MD Work Phone: [facility] 07-05-2024 08:55-0400 Respiratory rate 16 /min Sunil Delacruz MD Work Phone: [facility] 07-05-2024 08:55-0400 SaO2% (BldA) [Mass fraction] 97 % Sunil Delacruz MD Work Phone: [facility] 07-05-2024 08:55-0400 Systolic blood pressure 139 mm[Hg] Sunil Delacruz MD Work Phone: [facility] 03-13-2022 14:33-0500 Body height 167.6 cm Sanchez Washington DO Work Phone: [facility] 03-13-2022 14:33-0500 Body mass index (BMI) [Ratio] 27.7 kg/m2 Sanchez Washington DO Work Phone: [facility] 03-13-2022 14:33-0500 Body weight 77.85 kg Sanchez Washington DO Work Phone: [facility] 03-13-2022 13:46-0500 Body temperature 98.71 [degF] Sanchez Washington DO Work Phone: [facility] 03-13-2022 13:46-0500 Diastolic blood pressure 76 mm[Hg] Sanchez Washington DO Work Phone: [facility] 03-13-2022 13:46-0500 Heart rate 60 /min Sanchez Washington DO Work Phone: [facility] 03-13-2022 13:46-0500 Respiratory rate 16 /min Sanchez Washington DO Work Phone: [facility] 03-13-2022 13:46-0500 SaO2% (BldA) [Mass fraction] 96 % Sanchez Washington DO Work Phone: [facility] 03-13-2022 13:46-0500 Systolic blood pressure 136 mm[Hg] Sanchez Washington DO Work Phone: [facility] 03-12-2021 08:56-0500 Body height 167.6 cm Stevie Llanos MD Work Phone: [facility] 03-12-2021 08:56-0500 Body mass index (BMI) [Ratio] 28.25 kg/m2 Stevie Llanos MD Work Phone: [facility] 03-12-2021 08:56-0500 Body weight 79.38 kg Stevie Llanos MD Work Phone: [facility] 03-12-2021 08:56-0500 Diastolic blood pressure 68 mm[Hg] Stevie Llanos MD Work Phone: [facility] 03-12-2021 08:56-0500 Heart rate 59 /min Stevie Llanos MD Work Phone: [facility] 03-12-2021 08:56-0500 Systolic blood pressure 126 mm[Hg] Stevie Llanos MD Work Phone: [facility] 09-20-2019 09:01-0400 BMI (Body Mass Index) 26.65 kg/m2 [facility] 09-20-2019 09:01-0400 Body weight 74.89 kg [facility] 09-20-2019 09:01-0400 BP Diastolic 78 mm[Hg] [facility] 09-20-2019 09:01-0400 BP Systolic 126 mm[Hg] [facility] 09-20-2019 09:01-0400 Height 167.6 cm [facility] 09-20-2019 09:01-0400 Pulse (Heart Rate) 65 /min [facility] 09-20-2019 09:01-0400 Pulse Oximetry 97 % [facility] 04-05-2019 08:41-0500 BMI (Body Mass Index) 27.81 kg/m2 [facility] 04-05-2019 08:41-0500 Body Temperature 98.4 [degF] [facility] 04-05-2019 08:41-0500 Body weight 78.16 kg [facility] 04-05-2019 08:41-0500 BP Diastolic 75 mm[Hg] [facility] 04-05-2019 08:41-0500 BP Systolic 150 mm[Hg] [facility] 04-05-2019 08:41-0500 Height 167.6 cm [facility] 04-05-2019 08:41-0500 Pulse (Heart Rate) 68 /min [facility] 04-05-2019 08:41-0500 Pulse Oximetry 97 % [facility] 02-28-2019 13:48-0500 BMI (Body Mass Index) 28.05 kg/m2 [facility] 02-28-2019 13:48-0500 Body Temperature 97.59 [degF] [facility] 02-28-2019 13:48-0500 Body weight 78.83 kg [facility] 02-28-2019 13:48-0500 BP Diastolic 76 mm[Hg] [facility] 02-28-2019 13:48-0500 BP Systolic 126 mm[Hg] [facility] 02-28-2019 13:48-0500 Height 167.6 cm [facility] 02-28-2019 13:48-0500 Pulse (Heart Rate) 62 /min [facility] 02-28-2019 13:48-0500 Pulse Oximetry 98 % [facility] 02-11-2019 12:09-0500 Body Temperature 96.49 [degF] [facility] 02-11-2019 12:09-0500 BP Diastolic 65 mm[Hg] [facility] 02-11-2019 12:09-0500 BP Systolic 105 mm[Hg] [facility] 02-11-2019 12:09-0500 Pulse (Heart Rate) 56 /min [facility] 02-11-2019 12:09-0500 Pulse Oximetry 94 % [facility] 02-11-2019 12:09-0500 Respiratory Rate 14 /min [facility] 02-11-2019 06:32-0500 BMI (Body Mass Index) 27.97 kg/m2 [facility] 02-11-2019 06:32-0500 Body weight 78.6 kg [facility] 02-11-2019 06:32-0500 Height 167.6 cm [facility] 02-07-2019 08:51-0500 BMI (Body Mass Index) 27.44 kg/m2 [facility] 02-07-2019 08:51-0500 Body weight 77.[address] [facility] 02-07-2019 08:51-0500 Height 167.6 cm [facility] 02-07-2019 08:42-0500 BP Diastolic 81 mm[Hg] [facility] 02-07-2019 08:42-0500 BP Systolic 141 mm[Hg] [facility] 02-07-2019 08:42-0500 Pulse (Heart Rate) 58 /min [facility] 02-07-2019 08:42-0500 Pulse Oximetry 98 % [facility] 01-12-2019 08:37-0500 BMI (Body Mass Index) 27.92 kg/m2 [facility] 01-12-2019 08:37-0500 Body Temperature 97.9 [degF] [facility] 01-12-2019 08:37-0500 Body weight 78.47 kg [facility] 01-12-2019 08:37-0500 BP Diastolic 70 mm[Hg] [facility] 01-12-2019 08:37-0500 BP Systolic 124 mm[Hg] [facility] 01-12-2019 08:37-0500 Height 167.6 cm [facility] 01-12-2019 08:37-0500 Pulse (Heart Rate) 67 /min [facility] 01-12-2019 08:37-0500 Pulse Oximetry 99 % [facility] 11-03-2018 09:07-0400 BMI (Body Mass Index) 27.26 kg/m2 [facility] 11-03-2018 09:07-0400 Body Temperature 98.1 [degF] [facility] 11-03-2018 09:07-0400 Body weight 76.61 kg [facility] 11-03-2018 09:07-0400 BP Diastolic 75 mm[Hg] [facility] 11-03-2018 09:07-0400 BP Systolic 132 mm[Hg] [facility] 11-03-2018 09:07-0400 Height 167.6 cm [facility] 11-03-2018 09:07-0400 Pulse (Heart Rate) 52 /min [facility] 11-03-2018 09:07-0400 Pulse Oximetry 98 % [facility] 08-04-2018 08:57-0400 BMI (Body Mass Index) 27.86 kg/m2 [facility] 08-04-2018 08:57-0400 Body Temperature 98.4 [degF] [facility] 08-04-2018 08:57-0400 BP Diastolic 72 mm[Hg] [facility] 08-04-2018 08:57-0400 BP Systolic 126 mm[Hg] [facility] 08-04-2018 08:57-0400 Height 167.6 cm [facility] 08-04-2018 08:57-0400 Pulse (Heart Rate) 70 /min [facility] 08-04-2018 08:57-0400 Pulse Oximetry 97 % [facility] 08-04-2018 08:57-0400 Weight 78.29 kg [facility] 07-20-2018 10:43-0400 BP [facility] 65 mm[facility]Hg[facility] 10:43-0400 BP Systolic 127 mm[Hg] [facility] 07-20-2018 10:43-0400 Pulse (Heart Rate) 50 /min [facility] 07-20-2018 10:43-0400 Pulse Oximetry 98 % [facility] 07-20-2018 10:43-0400 Respiratory Rate 15 /min [facility] 07-20-2018 10:11-0400 Body Temperature 97.59 [degF] [facility] 07-20-2018 08:40-0400 BMI (Body Mass Index) 26.95 kg/m2 [facility] 07-20-2018 08:40-0400 Body weight 75.75 kg [facility] 07-20-2018 08:40-0400 Height 167.6 cm [facility] 06-28-2018 14:23-0400 BMI (Body Mass Index) 28.55 kg/m2 [facility] 06-28-2018 14:23-0400 Body Temperature 97.9 [degF] [facility] 06-28-2018 14:23-0400 BP Diastolic 77 mm[Hg] [facility] 06-28-2018 14:23-0400 BP Systolic 134 mm[Hg] [facility] 06-28-2018 14:0400 Height 167.6 cm [facility] 06-28-2018 14:-0400 Pulse (Heart Rate) 63 /min [facility] 06-28-2018 14:-0400 Pulse Oximetry 99 % [facility] 06-28-2018 14:-0400 Weight 80.24 kg [facility] 10-01-2017 13:-0400 BMI (Body Mass Index) 27.12 kg/m2 [facility] 10-01-2017 13:-0400 BP Diastolic 75 mm[Hg] [facility] 10-01-2017 13:-0400 BP Systolic 118 mm[Hg] [facility] 10-01-2017 13:0400 Height 167.6 cm [facility] 10-01-2017 13:-0400 Pulse (Heart Rate) 63 /min [facility] 10-01-2017 13:0400 Weight 76.2 kg [facility] Encounters Encounter Date Encounter Type Care Provider Facility Start: 08-09-2024 ambulatory IVETTE PULIDO [facility] Start: 08-02-2024 Encounter for other preprocedural examination Sherwin Nichols [facility] Start: 07-29-2024 End: 07-29-2024 ambulatory Sherwin Nichols Facility:[facility] Start: 07-08-2024 End: 07-08-2024 Admission to same day surgery center Adelina Jang MA [facility] Comment on above: Cerebral cyst (Prima ry Dx) Start: 07-08-2024 ambulatory SHERWIN NICHOLS [facility] Start: 07-05-2024 End: 07-05-2024 ambulatory SUNIL DELACRUZ Facility:[facility] Start: 07-05-2024 End: 07-05-2024 Subsequent hospital visit by physician Sunil Delacruz MD Work Phone: [facility]iology [facility] Comment on above: Paroxysmal atrial fi brillation Arrived Start: 07-05-2024 ambulatory IVETTE PULIDO [facility] Start: 06-29-2024 ambulatory SATHYA OSORIO [facility] Ambulatory Start: 06-18-2024 End: 06-18-2024 Documentation procedure Peggy Jones MD Work Phone: [facility] Start: 06-16-2024 End: 06-16-[address] [facility] Start: 06-07-2024 End: 06-07-[address] Lenny Herndon MD -Laboratory, Specimen Work Phone: Start: 06-07-2024 End: 06-07-[address] Sherwin Nichols MD Work Phone: [facility] Work Phone: Start: 06-01-2024 End: 06-01-2024 Orders Only Peggy Jones MD Work Phone: [facility] Comment on above: Cerebral cyst (Prima ry Dx); Other headache syndrome Start: 05-31-2024 End: 05-31-2024 Documentation procedure Peggy Jones MD Work Phone: [facility] Start: 05-30-2024 End: 06-03-2024 ambulatory PROVIDER NOT IN SYSTEM [facility] Start: 05-30-2024 ambulatory BOSTON HERRERA [facility] Ambulatory Start: 05-13-2024 End: 05-13-2024 ambulatory ANA HAMILTON MD Facility:[facility] Start: 05-12-2024 End: 05-12-[address] Sherwin Nichols MD Work Phone: [facility] Work Phone: Start: 05-12-2024 End: 05-12-2024 Patient encounter procedure Magalie Evans -Laboratory Work Phone: Start: 05-12-2024 End: 05-12-2024 ambulatory Sherwin Nichols Facility:[facility] Start: 05-05-2024 Encounter for genera l adult medical examination without abnormal findings Sherwin Nichols [facility] Start: 04-25-2024 End: 04-25-[address] Sherwin Nichols MD Work Phone: [facility] Work Phone: Start: 04-25-2024 End: 04-25-[address] Sherwin Nichols MD -Laboratory, [facility] Start: 04-25-2024 End: 04-25-2024 ambulatory Sherwin Nichols Facility:[facility] Start: 01-12-2024 ambulatory SUNIL DELACRUZ Faci lity:[facility] Start: 11-04-2023 Encounter for preprocedural cardiovascular examination DR~[id number] GOOD BHATIA MD [facility] Start: 11-04-2023 Encounter for preprocedural laboratory examination DR~[id number] GOOD BHATIA MD [facility] Start: 11-03-2023 End: 11-03-2023 ambulatory ANGELICA L VALENTIN DO Facility:[facility] Start: 09-09-2023 End: 12-09-2023 ambulatory SIMONE NICHOLS R~[id number] Facility:[facility] Start: 07-22-2023 End: 07-22-2023 ambulatory ANGELICA L VALENTIN DO Facility:[facility] Start: 07-16-2023 End: 07-16-2023 ambulatory ANGELICA L VALENTIN DO Facility:[facility] Start: 06-26-2023 End: 06-29-2023 ambulatory NADIA VANG APRN Facility:[facility] Start: 03-09-2023 End: 03-09-2023 Office outpatient visit 10 minutes Peggy Jones MD Work Phone: [facility] Comment on above: Cerebral cyst (Prima ry Dx); Other headache syndrome Start: 04-21-2022 End: 04-21-2022 Postop follow up visit related to original px Peggy Jones MD Work Phone: [facility] Comment on above: Cerebral cyst (Prima ry Dx) Start: 03-28-2022 Refill Che Gaitan RN [facility] Comment on above: Post-op pain (Primar y Dx) Start: 03-13-2022 End: 03-17-2022 Office outpatient new 45 minutes Peggy Jones MD Work Phone: [facility] Preadmission Testing Comment on above: Pre-op examination ( Primary Dx); Benign neoplasm of brain, unspecified brain region (HCC); Coronary artery disease involving [place] coronary artery of [place] heart without angina pectoris; Primary hypertension; Hyperlipidemia, unspecified hyperlipidemia type Start: 03-13-2022 End: 03-17-2022 Preprocedural examination done Peggy Jones MD Work Phone: [facility] Preadmission Testing Start: 10-23-2021 End: 10-23-2021 Office outpatient new 30 minutes Stevie Llanos MD Work Phone: [facility] Comment on above: Brain mass Start: 03-12-2021 End: 03-12-2021 Office outpatient new 60 minutes Mary Busby MD Work Phone: [facility] Comment on above: Fatigue, unspecified type (Primary Dx); Spell of change in speech; Cerebral cyst Start: 01-09-2021 Transcribe Orders Mary cruz MD Work Phone: [facility] Comment on above: Cyst of brain (Prima ry Dx) Start: 04-06-2020 End: 04-06-2020 Orders Only Sandra Mead Work Phone: [facility] Start: 09-20-2019 End: 09-20-2019 Office outpatient visit 10 minutes Enrrique Arias Work Phone: [facility] Comment on above: Discomfort of right groin (Primary Dx) Start: 04-05-2019 End: 04-05-2019 Postop follow up visit related to original px Enrrique Arias Work Phone: [facility] Comment on above: Postop check (Primar y Dx) Start: 02-28-2019 End: 02-28-2019 Postop follow up visit related to original px Enrrique Arias Work Phone: [facility] Comment on above: Postop check (Primar y Dx) Start: 02-11-2019 End: 02-11-2019 Subsequent hospital visit by physician Enrrique Arias Work Phone: [facility] Comment on above: Post-op pain (Primar y Dx); Right groin pain Start: 02-07-2019 End: 02-07-2019 Patient encounter procedure Enrrique Arias Work Phone: [facility] Preadmission Testing Comment on above: Right groin pain; Right inguinal hernia; Coronary artery disease, angina presence unspecified, unspecified vessel or lesion type, unspecified whether [place] or transplanted heart; Hx of heart artery stent; skilled nursing current use of anticoagulant; Essential hypertension Start: 01-12-2019 End: 01-12-2019 Office outpatient visit 25 minutes Enrrique Arias Work Phone: [facility] Comment on above: Right groin pain (Pr imary Dx); Right inguinal hernia; Coronary artery disease, angina presence unspecified, unspecified vessel or lesion type, unspecified whether [place] or transplanted heart; Hx of heart artery stent; 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; Essential hypertension Start: 11-03-2018 End: 11-03-2018 Office outpatient visit 15 minutes Enrrique Arias Work Phone: [facility] Comment on above: Right groin pain (Pr imary Dx); Essential hypertension; Coronary artery disease, angina presence unspecified, unspecified vessel or lesion type, unspecified whether [place] or transplanted heart; Hx of heart artery stent; Coagulopathy (HCC); 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 Start: 06-28-2018 End: 06-28-2018 Office outpatient new 45 minutes Mary Busby Work Phone: [facility] Comment on above: Essential hypertensi on (Primary Dx); Right groin pain; Coronary artery disease, angina presence unspecified, unspecified vessel or lesion type, unspecified whether [place] or transplanted heart; Hx of heart artery stent; Coagulopathy (HCC); Encounter for screening colonoscopy; Gastroesophageal reflux disease, esophagitis presence not specified Start: 10-01-2017 End: 10-01-2017 Office outpatient new 30 minutes Mary HallMark Busby Work Phone: [facility] Start: 06-07-2014 Patient encounter Stevie Campbellmagno Work Phone: [facility] Procedures Date Procedure Procedure Detail Performing Clinician Start: 07-05-2024 CBC AND ELECTRONIC DIFF Lily C Vaibhav CHILD CARE SUPERVISOR-INVESTMENT SALES ASSISTANT Work Phone: Start: 07-05-2024 Complete blood count with white cell differential, automated Lily C Vaibhav CHILD CARE SUPERVISOR-INVESTMENT SALES ASSISTANT Work Phone: Start: 07-05-2024 End: 07-05-2024 Creatinine blood Lily C Vaibhav CHILD CARE SUPERVISOR-C MACHINE CASTINGS PLASTERER Work Phone: Start: 07-05-2024 Ct heart contrast ev al cardiac structure&morph Sunil Delacruz MD Work Phone: Start: 07-05-2024 Ecg routine ecg w/le ast 12 lds w/i&r Lily C Vaibhav CHILD CARE SUPERVISOR-INVESTMENT SALES ASSISTANT Work Phone: Start: 03-21-2022 Adult depression screening assessment Che Gaitan RN Start: 03-13-2022 Basic metabolic pane l calcium total Peggy Jones MD Work Phone: Start: 03-13-2022 Blood typing serolog ic abo Peggy Jones MD Work Phone: Start: 03-13-2022 Ecg routine ecg w/le ast 12 lds trcg only w/o i&r Peggy Jones MD Work Phone: Start: 02-07-2019 Complete blood count with white cell differential, automated Enrrique Arias Work Phone: Start: 02-07-2019 Complete blood count with white cell differential, manual Enrrique Arias Work Phone: Start: 02-07-2019 Comprehensive metabo lic 2000 panel - Serum or Plasma Enrrique Arias Work Phone: Start: 07-20-2018 Colonoscopy Sandra waller Start: 06-28-2018 History of placement of stent for coronary artery disease Hx of heart artery stent Mary Busby MD Work Phone: Plan of Treatment Date Care Activity Detail Author Start: 07-20-2028 Screening for malignant neoplasm of colon [facility] Start: 10-31-2024 Influenza vaccination Influenza Vaccine (Season Ended) [facility] Start: 09-19-2024 End: 09-19-2024 Follow-up encounter 09/19/2024 9:00 AM EDT Follow-Up [facility] [address] [place] [id number] Peggy Jones MD [address] [place] [address] [facility] Start: 08-18-2024 End: 08-18-2024 Admission to same day surgery center 08/18/2024 12:10 PM EDT - 08/18/2024 2:40 PM EDT Surgery [facility] [address] [place] [address] Peggy Jones MD [address] [place] [id number] 1. LEFT CRANIOTOMY FOR CYST, 2. LEFT PERITONEAL SHUNT (CERTAS VALVE) [facility] Comment on above: 1. LEFT CRANIOTOMY FOR CYST, 2. LEFT PER ITONEAL SHUNT (CERTAS VALVE) Start: 08-18-2024 End: 06-19-2025 Craniot hypophysec/exc pituitary tumor icrl appr CRANIOTOMY TUMOR WITH STEALTH Cerebral cyst 08/18/2024 12:10 PM EDT [facility] Start: 08-18-2024 Subsequent hospital visit by physician [facility] Start: 11-01-2023 COVID-19 Vaccine ( season) COVID-19 Vaccine ( season) [facility] Start: 07-03-2023 Respiratory Syncytial Virus Immunization: Risk, 60-74 Risk, or 75+ (1 - 1-dose 75+ series) Respiratory Syncytial Virus Immunization: Risk, 60-74 Risk, or 75+ (1 - 1-dose 75+ series) [facility] Start: 07-03-2023 RSV VACCINE (1 - 1-dose 75+ series) RSV VACCINE (1 - 1-dose 75+ series) [facility] Start: 03-21-2023 Depression screening using PHQ-9 (Patient Health Questionnaire 9) score [facility] Start: 10-31-2022 Influenza vaccination Sequential Influenza Vaccine (#1) [facility] Start: 04-16-2022 End: 04-16-2022 Follow-up encounter 04/16/2022 Follow-Up Neurosurgery Peggy Jones MD [address] [place], [place] [address] [address] [address] [facility] Start: 03-20-2022 End: 03-20-2022 Admission to same day surgery center 03/20/2022 Surgery Peggy Jones MD [address] [address] LEFT CRANIOTOMY FOR TUMOR WITH STEALTH [facility] Comment on above: LEFT CRANIOTOMY FOR TUMOR WITH STEALTH Start: 03-20-2022 End: 03-20-2022 CRANIOTOMY TUMOR WITH STEALTH CRANIOTOMY TUMOR WITH STEALTH Brain mass 03/20/2022 12:25 PM EST [facility] Start: 03-20-2022 Subsequent hospital visit by physician 03/20/2022 Hospital Encounter Peggy Jones MD [address] [facility] [address] [place] [address] [facility] Start: 10-31-2021 Influenza vaccination Sequential Influenza Vaccine (#1) [facility] Start: 04-09-2021 End: 04-09-2021 Patient encounter procedure 04/09/2021 Office Visit Neurology Stevie Llanos MD [address] [place] [address] [facility] Start: 10-31-2020 Influenza vaccination Sequential Influenza Vaccine (#1) [facility] Start: 11-01-2019 Influenza vaccination given Sequential Influenza Vaccine (#1) [facility] Start: 07-21-2019 Screening for malignant neoplasm of colon COLORECTAL CANCER SCREENING DISCUSSION [facility] Start: 07-06-2019 End: 07-06-2019 Office Visit 07/06/2019 Office Visit General Surgery Enrrique Arias MD [address] [place] [address] Medical [facility] [place] [address] [phone] [facility] Start: 06-25-2019 History and physical examination, annual for health maintenance Wellness Visit [facility] Start: 04-05-2019 End: 04-05-2019 Office Visit 04/05/2019 Office Visit General Surgery Enrrique Arias MD [address] [place] [address] [facility] [address] [place] [address] [phone] [facility] Start: 02-11-2019 End: 02-11-[address] [facility] Comment on above: REPAIR HERNIA INGUINAL ROBOTIC XI Start: 02-07-2019 End: 02-07-2019 Office Visit 02/07/2019 Office Visit Pre-Admission Testing [facility] Preadmission Testing Start: 01-12-2019 End: 01-12-2019 Office Visit 01/12/2019 Office Visit General Surgery Enrrique Arias MD [address] [facility] [address] [place] [address] [phone] [facility] Start: 11-03-2018 End: 11-03-2018 Office Visit 11/03/2018 Office Visit General Surgery Enrrique Arias MD [address] [place] [address] [address] [phone] [facility] Start: 10-31-2018 Influenza vaccination given [facility] Start: 08-04-2018 End: 08-04-2018 Office Visit 08/04/2018 Office Visit General Surgery Enrrique Arias MD [address] [place] [address] [phone] [facility] Start: 06-18-2018 Pneumococcal vaccination PNEUMOCOCCAL VACCINE AGE 65+ (2 of 2 - PPSV23) [facility] Start: 10-31-2017 Influenza vaccination SEQUENTIAL INFLUENZA VACCINE (#1) [facility] Start: 10-31-2017 Influenza vaccination given SEQUENTIAL INFLUENZA VACCINE (#1) [facility] Start: 08-13-2017 Pneumococcal Vaccine: Age 65+ (1 of 2 - PPSV23) Pneumococcal Vaccine: Age 65+ (1 of 2 - PPSV23) [facility] Start: 2013 Fall risk assessment Falls Risk Assessment [facility] Start: 2013 Pneumococcal vaccination PNEUMOCOCCAL VACCINE AGE 65+ (1 of 2 - PCV13) [facility] Start: 2013 Ultrasound scan of abdominal aorta ABDOMINAL AORTIC ULTRASOUND [facility] Start: 06-18-2013 Tetanus vaccination [facility] Start: 2008 Zoster vaccine hzv live for subcutaneous use ZOSTER VACCINE [facility] Start: 1998 Administration of herpes zoster vaccine Zoster Vaccines (1 of 2) [facility] Start: 1998 Screening for malignant neoplasm of colon [facility] Start: 1998 Zoster vaccine hzv live for subcutaneous use ZOSTER (SHINGLES) VACCINE (1 of 2) [facility] Start: 07-03-1967 Third diphtheria, tetanus and acellular pertussis (DTaP) vaccination TDAP (ADULT) [facility] Start: 1966 Hepatitis C antibody, confirmatory test Hepatitis C Screening [facility] Start: 1966 Hepatitis C screening Hepatitis C Screening [facility] Start: 1964 COVID-19 Vaccine (1 of 2) COVID-19 Vaccine (1 of 2) [facility] Start: 1960 Adolescent depression screening assessment Depression Screening (PHQ9) [facility] Start: 1960 COVID-19 Vaccine (1) COVID-19 Vaccine (1) [facility] Start: 1960 Depression screening using PHQ-9 (Patient Health Questionnaire 9) score Depression Screening (PHQ-2/9) [facility] Start: 1953 COVID-19 Vaccine (1) COVID-19 Vaccine (1) [facility] Start: 07-03-1951 History and physical examination, annual for health maintenance Wellness Visit [facility] Start: 07-03-1951 Medicare Wellness Visit Medicare Wellness Visit [facility] Start: 01-02-1949 COVID-19 Vaccine (#1) COVID-19 Vaccine (#1) [facility] Start: 1948 Abdominal aortic aneurysm screening Abdominal Aortic Ultrasound [facility] Start: 1948 Fall risk assessment Falls Risk Assessment [facility] Start: 1948 Hepatitis C antibody, confirmatory test HEPATITIS C SCREENING [facility] Start: 1948 Hepatitis C screening HEPATITIS C VIRUS SCREENING [facility] Start: 1948 Prostate specific antigen measurement PSA Level [facility] Start: 1948 Screening for malignant neoplasm of colon [facility] Start: 1948 US scan of abdominal aorta Abdominal Aortic Ultrasound [facility] Start: 1948 HEPATITIS C SCREENING HEPATITIS C SCREENING [facility] Start: 1948 Screening colonoscopy COLONOSCOPY [facility] Start: 1948 End: 1948 Tetanus vaccination [facility] End: 01-13-2020 12 lead ECG ECG 12 Lead ECG Routine Right groin pain Right inguinal hernia Coronary Artery Disease, Angina Presence Unspecified, Unspecified Vessel Or Lesion Type, Unspecified Whether [place] Or Transplanted Heart Hx of heart artery stent skilled nursing current use of anticoagulant Essential hypertension 1 Occurrences starting 01/12/2019 until 01/13/2020 [facility] Comment on above: 1 Occurrences starting 01/12/2019 until 01/13/2020 12 lead ECG ECG 12 Lead ECG Routine Pre-op examination Ordered: 03/13/2022 [facility] Work Phone: Comment on above: Ordered: 03/13/2022 End: 05-12-2022 Carotid artery doppler assessment Ultrasound doppler carotid Vascular Ultrasound Routine Spell of change in speech Fatigue, unspecified type 1 Occurrences starting 03/12/2021 until 05/12/2022 [facility] Comment on above: 1 Occurrences starting 03/12/2021 until 05/12/2022 CASE REQUEST - EP NC OC (EPS, ABLATION, DEVICE) CASE REQUEST - EP PROC (EPS, ABLATION, DEVICE) Procedures Routine Paroxysmal atrial fibrillation Ordered: 07/05/2024 [facility] Comment on above: Ordered: 07/05/2024 End: 03-13-2022 Cobalamin (Vitamin B12) [Mass/volume] in Serum or Plasma Vitamin B12 Lab Routine Spell of change in speech Fatigue, unspecified type 1 Occurrences starting 03/12/2021 until 03/13/2022 [facility] Comment on above: 1 Occurrences starting 03/12/2021 until 03/13/2022 Cobalamin (Vitamin B 12) [Mass/volume] in Serum or Plasma Vitamin B12 Lab Routine Spell of change in speech Fatigue, unspecified type 03/12/2021 10:[address] 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 Essential hypertension 1 Occurrences starting 01/12/2019 until 01/13/2020 [facility] Comment on above: 1 Occurrences starting 01/12/2019 until 01/13/2020 End: 03-13-2022 Complete blood count with white cell differential, manual CBC and Differential Lab Routine Spell of change in speech Fatigue, unspecified type 1 Occurrences starting 03/12/2021 until 03/13/2022 [facility] Work Phone: Comment on above: 1 Occurrences starting 03/12/2021 until 03/13/2022 Complete blood count with white cell differential, manual CBC and Differential Lab Routine Spell of change in speech Fatigue, unspecified type 03/12/2021 10:14 AM EST [facility] End: 01-13-2020 Comprehensive metabolic 2000 panel Comprehensive Metabolic Panel Lab Routine Right groin pain Right inguinal hernia Coronary Artery Disease, Angina Presence Unspecified, Unspecified Vessel Or Lesion Type, Unspecified Whether [place] Or Transplanted Heart Hx of heart artery stent 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 Essential hypertension 1 Occurrences starting 01/12/2019 until 01/13/2020 [facility] Comment on above: 1 Occurrences starting 01/12/2019 until 01/13/2020 End: 03-13-2022 Comprehensive metabolic 2000 panel - Serum or Plasma Comprehensive Metabolic Panel Lab Routine Spell of change in speech Fatigue, unspecified type 1 Occurrences starting 03/12/2021 until 03/13/2022 [facility] Comment on above: 1 Occurrences starting 03/12/2021 until 03/13/2022 Comprehensive metabo lic 2000 panel - Serum or Plasma Comprehensive Metabolic Panel Lab Routine Spell of change in speech Fatigue, unspecified type 03/12/2021 10:14 AM EST [facility] Craniot hypophysec/e xc pituitary tumor icrl appr CRANIOTOMY TUMOR WITH STEALTH Cerebral cyst [facility] End: 03-08-2024 CT Head WO contrast CT Head Or Brain Without Contrast Imaging Routine Cerebral cyst Other headache syndrome 1 Occurrences starting 03/09/2023 until 03/08/2024 [facility] Work Phone: Comment on above: 1 Occurrences starting 03/09/2023 until 03/08/2024 End: 03-12-2022 EEG (STANDARD) EEG (Standard) Neurology Routine Spell of change in speech Fatigue, unspecified type 1 Occurrences starting 03/12/2021 until 03/12/2022 [facility] Comment on above: 1 Occurrences starting 03/12/2021 until 03/12/2022 End: 04-21-2024 Electrophysiology study EP PROCEDURE - EPS/ABLATION/DEVICE Electrophysiology Routine Paroxysmal atrial fibrillation One Time for 1 Occurrences starting 04/21/2024 until 04/21/2024 [facility] Work Phone: Comment on above: One Time for 1 Occurrences starting 04/03 until 04/21/2024 Ephys evl trnsptl tx atrial fib isolat pulm vein ABLATION SCHED INTERCARDIAC A-FIB TRANSEPTAL BY PULM VEIN ISOLATION W/EP EVAL ([id number]) Paroxysmal atrial fibrillation [facility] EP End: 03-13-2022 Folate [Mass/volume] in Serum or Plasma Folate Lab Routine Spell of change in speech Fatigue, unspecified type 1 Occurrences starting 03/12/2021 until 03/13/2022 [facility] Comment on above: 1 Occurrences starting 03/12/2021 until 03/13/2022 Folate [Mass/volume] in Serum or Plasma Folate Lab Routine Spell of change in speech Fatigue, unspecified type 03/12/2021 10:[address] [facility] End: 03-13-2022 Magnesium [Mass/volume] in Serum or Plasma Magnesium Level Lab Routine Spell of change in speech Fatigue, unspecified type 1 Occurrences starting 03/12/2021 until 03/13/2022 [facility] Comment on above: 1 Occurrences starting 03/12/2021 until 03/13/2022 Magnesium [Mass/volu me] in Serum or Plasma Magnesium Level Lab Routine Spell of change in speech Fatigue, unspecified type 03/12/2021 10:[address] [facility] End: 03-12-2022 MR Brain With And Without Contrast MR Brain With And Without Contrast Imaging Routine Spell of change in speech Fatigue, unspecified type 1 Occurrences starting 03/12/2021 until 03/12/2022 [facility] Comment on above: 1 Occurrences starting 03/12/2021 until 03/12/2022 End: 06-01-2025 MR Brain WO and W contrast IV MR Brain With And Without Contrast Imaging Routine Cerebral cyst Other headache syndrome 1 Occurrences starting 06/01/2024 until 06/01/2025 [facility] Work Phone: Comment on above: 1 Occurrences starting 06/01/2024 until 06/01/2025 End: 03-13-2022 Phosphate [Mass/volume] in Serum or Plasma Phosphorus Lab Routine Spell of change in speech Fatigue, unspecified type 1 Occurrences starting 03/12/2021 until 03/13/2022 [facility] Comment on above: 1 Occurrences starting 03/12/2021 until 03/13/2022 Phosphate [Mass/volu me] in Serum or Plasma Phosphorus Lab Routine Spell of change in speech Fatigue, unspecified type 03/12/2021 10:[address] [facility] End: 03-13-2022 Plasma methylmalonic acid level Methylmalonic Acid, Blood Lab Routine Spell of change in speech Fatigue, unspecified type 1 Occurrences starting 03/12/2021 until 03/13/2022 [facility] Comment on above: 1 Occurrences starting 03/12/2021 until 03/13/2022 Plasma methylmalonic acid level Methylmalonic Acid, Blood Lab Routine Spell of change in speech Fatigue, unspecified type 03/12/2021 10:14 AM EST [facility] End: 03-12-2022 Rapid plasma reagin test RPR Lab Routine Spell of change in speech Fatigue, unspecified type 1 Occurrences starting 03/12/2021 until 03/12/2022 [facility] Comment on above: 1 Occurrences starting 03/12/2021 until 03/12/2022 Rapid plasma reagin test RPR Lab Routine Spell of change in speech Fatigue, unspecified type 03/12/2021 10:[address] [facility] End: 03-13-2022 Thyrotropin [Units/volume] in Serum or Plasma TSH with Reflex Free T4 Lab Routine Spell of change in speech Fatigue, unspecified type 1 Occurrences starting 03/12/2021 until 03/13/2022 [facility] Comment on above: 1 Occurrences starting 03/12/2021 until 03/13/2022 Thyrotropin [Units/volume] in Serum or Plasma TSH with Reflex Free T4 Lab Routine Spell of change in speech Fatigue, unspecified type 03/12/2021 10:[address] [facility] Immunizations Immunization Date Immunization Notes Care Provider Julia luther 11-16-2009 influenza virus vacc ine, unspecified formulation Peggy Jones MD Work Phone: [facility] Payers Date Payer Category Payer Self-pay 2023 Medicare (Managed Care) MEDICARE AETNA PPO [id number] 2021 Medicare AETNA [facility] AETNA MEDICARE PLAN (PPO) [id number] 2021-Present [phone] [address] [place] [address] [id number] 2021 Medicare PPO [id number] 2020 Medicare [id number] 2013 Medicare [facility] [facility] [facility] A[facility]NA [facility]IC[facility]AN (PPO) xxxxxxxx 2013-Present xxxxxxxx [id number] 2013 Medicare [id number] 2013 Medicare [id number] 2013 Private Health Insurance [id number] 1959 Medicare [id number] 1950 Unknown [id number] 2.0.1.264547.3.579.2. 419 1948 Unknown [id number] 2.0.1.781478.3.579.2. 419 1948 Unknown [id number] 2.840.1.037970.3.579.2. 419 1948 Unknown [id number] 2.16840.1.811430.3.579.2. 419 1948 Unknown [id number] 2.16840.1.009773.3.579.2. 419 1948 Unknown [id number] 2.16840.1.453841.3.579.2. 419 1948 Unknown [id number] 2.16840.1.465272.3.579.2. 902 1948 Unknown [id number] 2.16840.1.549174.3.579.2. 594 1948 Unknown [id number] 2.16840.1.730838.3.579.2. 594 1948 Unknown [id number] 2.840.1.294361.3.579.2. 594 1948 Unknown [id number] 2.840.1.780062.3.579.2. 903 1948 Unknown [id number] 2.840.1.407550.3.579.2. 900 1948 Unknown [id number] 2.840.1.304667.3.579.2. 903 1948 Unknown [id number] 2.0.1.096358.3.579.2. 903 1948 Unknown [id number] 2.840.1.257336.3.579.2. 903 1948 Unknown [id number] 2.840.1.317184.3.579.2. 903 1948 Unknown [id number] 2.840.1.301342.3.579.2. 903 Unknown [id number] 2.840.1.863136.3.579.2. 462 Unknown [id number] 2.840.1.676077.3.579.2. 462 Unknown [id number] 2.840.1.211682.3.579.2. 462 Unknown [id number] 2.840.1.699516.3.579.2. 462 Social History Date Type Detail Facility Tobacco smoking stat [facility] Unknown if ever smoked [facility] Start: 1950 Sex Assigned At Not on file [facility] Start: 10-01-2017 End: 03-13-2022 Tobacco smoking status NHIS Former smoker [facility] Start: 03-02-1982 End: 03-02-1987 History of tobacco use Current smoker [facility] Start: 11-03-2018 End: 03-09-2023 Alcohol intake Current non-drinker of alcohol (finding) [facility] Start: 10-13-2021 End: 04-21-2022 Exposure to SARS-CoV-2 (event) Not sure [facility] Start: 09-20-2019 End: 03-13-2022 Tobacco use and exposure Never used [facility] Start: 03-02-1982 End: 03-02-1987 History of tobacco use Cigarette Smoker [facility] Start: 03-13-2022 End: 03-21-2022 Cigarettes smoked current (pack per day) - Reported 0.3 [facility] Start: 03-21-2022 End: 04-21-2022 Tobacco use panel [facility] Adult Depression Screening Assessment 0 [facility] Start: 06-28-2018 Gender identity Identifies as male gender (finding) [facility] Start: 06-28-2018 Sexual orientation Heterosexual (finding) [facility] Start: 04-04-2012 End: 05-05-2024 Sex Male (finding) [facility] Start: 1950 Sex Assigned At Male [facility] Start: 07-05-2024 Alcoholic beverage intake Ex-drinker (finding) [facility] Medical Equipment Procedure Code Equipment Code Equipment Origin al Text Equipment Identifier Dates Mesh 4 X 6in Rt Lg 3dmax - Sn/A [id number] Start: 02-11-2019 Graft 4 X 5in Du ral Duragen Plus - [id number] ()[id number] [id number], [id number] FDA Start: 03-20-2022 Cover 15mm Ti Bu rr Hl Matrixneuro - [id number] Start: 03-20-2022 Hemostat 2 X 4in Surgicel Fibrillar - [id number] ()[id number] [id number], [id number] FDA Start: 03-20-2022 Hemostat 2 X 14i n Surgicel 1953 - [id number] ()[id number] [id number], 1676315_[facility] FDA Start: 03-20-2022 Sealant 10ml Hemostatic Matrix Fast Prep Floseal - [id number] ()[id number] [id number] , 1676317_[facility] FDA Start: 03-20-2022 Hemostat 8 X 12. 5cm X 2mm Surgifoam Gelatin Sponge Cs/6 - [id number] ()[id number] [id number], 1676321_[facility] FDA Start: 03-20-2022 Screw 4mm Ti Self-Drill Matrixneuro - [id number] 1676478_[facility] Start: 03-20-2022 Coronary Stent 4 8mm 2.5mm Synergy Xd Monorail 144cm - [id number] 7)[id number] , 902883_[facility] FDA Start: 12-07-2020 Coronary Stent 1 6mm 3.5mm Synergy Xd Monorail 144cm - [id number] ()[id number] [id number] , 902886_[facility] FDA Start: 12-07-2020 Device Closure Proglide Perclose 6fr Suture Mediate Knot - [id number] ()[id number], 902893_[facility] FDA Start: 12-07-2020 Clinical Notes 03-12-2021 to 07-05-2024 Treatment Plan - JUANITO Blood - 07/05/2024 12:00 PM EDTTreatment Plan - JUANITO Blood - 07/05/2024 12:00 PM EDTNursing Notes - Cyndi Arguelles RN - 07/05/2024 9:05 AM EDT Note Date & Type Note Facility 07-05-2024 Plan of care note Delmi Berger is a 74 y.o. male who presents on 07/05/24 with hypertension, hyperlipidemia, CAD s/p LAD and RCA PCI, ischemic cardiomyopathy with a preserved ejection fraction, pulmonary hypertension, and persistent atrial fibrillation. Previously seen in consult with Dr. Delacruz and found to be in atrial fibrillation at that time. He presents today for ablation for rhythm control. His [id number] score is 4 and anticoagulated with Eliquis. Per prior Neurosurgery note dated 06/18/2024 at [facility]: Mr. Berger has a recurrent left temporal arachnoid cyst with recurrent symptoms with recommendation to undergo craniotomy with cyst resection and placement of cystoperitoneal shunt. Reviewed this with Dr. Dash and Dr. Delacruz. Will hold on AF ablation today until concerns for recurrent cyst has been resolved from a neurological standpoint and he is safe to undergo general anesthesia and systemic AC at the time of the ablation procedure with acceptable bleeding risk. This was explained to Mr. Berger and he is in agreement to return at a later date for re-attempt at AF ablation for rhythm control. [facility] 07-05-2024 Miscellaneous Notes Delmi Berger is a 74 y.o. male who presents on 07/05/24 with hypertension, hyperlipidemia, CAD s/p LAD and RCA PCI, ischemic cardiomyopathy with a preserved ejection fraction, pulmonary hypertension, and persistent atrial fibrillation. Previously seen in consult with Dr. Delacruz and found to be in atrial fibrillation at that time. He presents today for ablation for rhythm control. His [id number] score is 4 and anticoagulated with Eliquis. Per prior Neurosurgery note dated 06/18/2024 at [facility]: Mr. Berger has a recurrent left temporal arachnoid cyst with recurrent symptoms with recommendation to undergo craniotomy with cyst resection and placement of cystoperitoneal shunt. Reviewed this with Dr. Dash and Dr. Delacruz. Will hold on AF ablation today until concerns for recurrent cyst has been resolved from a neurological standpoint and he is safe to undergo general anesthesia and systemic AC at the time of the ablation procedure with acceptable bleeding risk. This was explained to Mr. Berger and he is in agreement to return at a later date for re-attempt at AF ablation for rhythm control. Pt arrives to room 2418 in [facility] for A fib. ECG completed. IV started in left arm. Labs drawn and sent. Pt prep completed. Valuables @ bedside. Clothes secured in room. Questions about procedure answered. Family brought to bedside. Bed in low position, side rail up x2 and call light given to pt. Tele monitor shows A fib. Cyndi Arguelles RN documented in this encounter [facility] 07-05-2024 Nurse Note Pt arrives to room 2418 in [facility] for A fib. ECG completed. IV started in left arm. Labs drawn and sent. Pt prep completed. Valuables @ bedside. Clothes secured in room. Questions about procedure answered. Family brought to bedside. Bed in low position, side rail up x2 and call light given to pt. Tele monitor shows A fib. [facility] DELMI BERGER N [id number] 1950 DATE SHERWIN NICHOLS MD [address] [place] [address] Nichols: Mr. Berger had an MRI scan that shows recurrent left temporal arachnoid cyst. He did have this resected and marsupialized several years ago, and it did not come back on followup scans, but he started to develop symptoms and we rescanned him. Because it is recurrent, I would recommend not only a craniotomy with resection of the cyst but also a cystoperitoneal shunt. I explained those procedures and the risks, which include, but are not limited to, bleeding, infection, need for reoperation, intracranial hemorrhage, aphasia, stroke, failure of shunt, recurrence of cyst, DVT, pulmonary embolism, myocardial infarction, chronic pain, and even . He understood all of this. He will need to be off his Eliquis for about 5 days prior to surgery, and we will need to get a cardiac clearance. Please feel free to call me if you have any questions. Thank you very much. Sincerely, PEGGY JONES MD D 06/18/2024 08:56 [id number] T 06/18/2024 14:36 CLB/MODL AUTHENTICATED BY PEGGY JONES, ON 06/20/2024 08:16:56 [facility] 06-18-2024 Note See Dictation. AUTHENTICATED BY PEGGY JONES, ON 06/18/2024 09:02:49 [facility] 06-18-2024 History of Present illness Narrative See Dictation. documented in this encounter [facility] 06-01-2024 Note DELMI BERGER N [id number] 1950 DATE SHERWIN NICHOLS MD [address] [facility] [address] [place] [address] Dr. Nichols: Mr. Berger has had a reaccumulation of a left temporal cystic lesion. He had been doing well until about 2 months ago. He started developing memory problems and aphasia. Most likely, he is going to need drainage of the cyst and a shunt placement. I am also going to get a new MRI scan of his brain. He was recently switched from Plavix to Eliquis. Thank you very much. Sincerely, MD Dorina DURANT 05/31/2024 18:31 [id number] T 06/01/2024 06:32 CLB/MODL AUTHENTICATED BY PEGGY JONES, ON 06/06/2024 07:28:43 [facility] 05-31-2024 Note See Dictation. AUTHENTICATED BY PEGGY JONES, ON 05/31/2024 18:33:36 [facility] 05-31-2024 History of Present illness Narrative See Dictation. documented in this encounter [facility] 03-09-2023 History of Present illness Narrative See Dictation. documented in this encounter [facility] 04-21-2022 History of Present illness Narrative See Dictation. documented in this encounter [facility] 03-19-2022 Note Formatting of this n ote might be different from the original. Cardiac clearance was received and given to Dr. Washington for review. Placed in surgery chart. [facility] 03-19-2022 Note Formatting of this n ote might be different from the original. Cardiac clearance was received and given to Dr. Washington for review. Placed in surgery chart. [facility] 03-19-2022 Note Formatting of this n ote might be different from the original. Cardiac clearance was received and given to Dr. Washington for review. Placed in surgery chart. [facility] 03-19-2022 Miscellaneous Notes Cardiac clearance was received and given to Dr. Washington for review. Placed in surgery chart. Sending incomplete chart to OR for next day surgery See Epic regarding cardiac clearance; surgeon's office in communication with patient per note. Spoke to cardiology the first available appointment is /2023 at 3:[address] oJnes's office notified. Request faxed to blind teacher for letter of cardiac acceptability. Patient will need appointment for clearance. Dr. Jones's office notified. Please verify with the patient's blind teacher, the patient's cardiac acceptability for the patient's planned procedure. Thank you. Patient Instructions for [facility] Prior to surgery: Please contact your Surgeon's office for the scheduled time of your surgery. Report to the Surgery Family Waiting Area in the [facility] 2 hours prior to your surgery. You may park in the [facility] of [facility] - a voucher for parking will be provided to you. One family member may accompany you back into the Pre-Op Area. If your surgeon has given you special guidelines for eating and drinking prior to surgery, follow their instructions. If not, the evening before surgery you may eat a low-fat meal up until midnight. Do not eat anything, including gum, cough drops, hard candy or mints after midnight. Do not smoke, chew tobacco or drink alcohol for 24 hours before surgery. Please take any medications you have been instructed to take the morning of your surgery with small sips of water. Please be sure to wear comfortable, appropriate clothing. Please remove all jewelry and piercings, including wedding rings. RINGS WILL BE CUT OFF IF UNABLE TO REMOVE. Leave all valuable items at home. Shower using Dial soap or as advised by your Surgeon's office. Do not apply any makeup or lotions. Gel or acrylic nails must be removed from both fingers. Remove all nail american/product for surgeries involving extremities. Please remember to bring both your insurance card and a photo ID with you on the day of your surgery. After your surgery: If you are having outpatient surgery - you must have a licensed fire truck driver take you home. The expectation is that this fire truck driver will remain at the hospital for the duration of your procedure. You are advised to have a family member with you for at least 24 hours after being under Anesthesia. documented in this encounter [facility] 03-19-2022 Note Formatting of this n ote might be different from the original. Sending incomplete chart to OR for next day surgery See Epic regarding cardiac clearance; surgeon's office in communication with patient per note. [facility] 03-19-2022 Note Formatting of this n ote might be different from the original. Sending incomplete chart to OR for next day surgery See Epic regarding cardiac clearance; surgeon's office in communication with patient per note. [facility] 03-19-2022 Note Formatting of this n ote might be different from the original. Sending incomplete chart to OR for next day surgery See Epic regarding cardiac clearance; surgeon's office in communication with patient per note. [facility] 03-18-2022 Note Formatting of this n ote might be different from the original. Spoke to cardiology the first available appointment is /2023 at 3:[address] Jones's office notified. [facility] 03-18-2022 Note Formatting of this n ote might be different from the original. Spoke to cardiology the first available appointment is /2023 at 3:[address] Jones's office notified. [facility] 03-18-2022 Note Formatting of this n ote might be different from the original. Spoke to cardiology the first available appointment is /2023 at 3:[address] Jones's office notified. [facility] 03-18-2022 Note Formatting of this n ote might be different from the original. Spoke to cardiology the first available appointment is /2023 at 3:[address] Jones's office notified. [facility] 03-18-2022 Miscellaneous Notes Spoke to cardiology the first available appointment is /2023 at 3:[address] Jones's office notified. Request faxed to blind teacher for letter of cardiac acceptability. Patient will need appointment for clearance. Dr. Jones's office notified. Please verify with the patient's blind teacher, the patient's cardiac acceptability for the patient's planned procedure. Thank you. Patient Instructions for [facility] Prior to surgery: Please contact your Surgeon's office for the scheduled time of your surgery. Report to the Surgery Family Waiting Area in the [facility] 2 hours prior to your surgery. You may park in the [facility] of [facility] - a voucher for parking will be provided to you. One family member may accompany you back into the Pre-Op Area. If your surgeon has given you special guidelines for eating and drinking prior to surgery, follow their instructions. If not, the evening before surgery you may eat a low-fat meal up until midnight. Do not eat anything, including gum, cough drops, hard candy or mints after midnight. Do not smoke, chew tobacco or drink alcohol for 24 hours before surgery. Please take any medications you have been instructed to take the morning of your surgery with small sips of water. Please be sure to wear comfortable, appropriate clothing. Please remove all jewelry and piercings, including wedding rings. RINGS WILL BE CUT OFF IF UNABLE TO REMOVE. Leave all valuable items at home. Shower using Dial soap or as advised by your Surgeon's office. Do not apply any makeup or lotions. Gel or acrylic nails must be removed from both fingers. Remove all nail american/product for surgeries involving extremities. Please remember to bring both your insurance card and a photo ID with you on the day of your surgery. After your surgery: If you are having outpatient surgery - you must have a licensed fire truck driver take you home. The expectation is that this fire truck driver will remain at the hospital for the duration of your procedure. You are advised to have a family member with you for at least 24 hours after being under Anesthesia. documented in this encounter [facility] 03-14-2022 Note Formatting of this n ote might be different from the original. Request faxed to blind teacher for letter of cardiac acceptability. Patient will need appointment for clearance. Dr. Jones's office notified. [facility] 03-14-2022 Note Formatting of this n ote might be different from the original. Request faxed to blind teacher for letter of cardiac acceptability. Patient will need appointment for clearance. Dr. Jones's office notified. [facility] 03-14-2022 Note Formatting of this n ote might be different from the original. Request faxed to blind teacher for letter of cardiac acceptability. Patient will need appointment for clearance. Dr. Jones's office notified. [facility] 03-14-2022 Note Formatting of this n ote might be different from the original. Request faxed to blind teacher for letter of cardiac acceptability. Patient will need appointment for clearance. Dr. Jones's office notified. [facility] 01-13-2023 Note Formatting of this n ote might be different from the original. Request faxed to blind teacher for letter of cardiac acceptability. Patient will need appointment for clearance. Dr. Jones's office notified. [facility] 03-14-2022 Note Formatting of this n ote might be different from the original. Request faxed to blind teacher for letter of cardiac acceptability. Patient will need appointment for clearance. Dr. Jones's office notified. [facility] 03-14-2022 Miscellaneous Notes Request faxed to blind teacher for letter of cardiac acceptability. Patient will need appointment for clearance. Dr. Jones's office notified. Please verify with the patient's blind teacher, the patient's cardiac acceptability for the patient's planned procedure. Thank you. Patient Instructions for [facility] Prior to surgery: Please contact your Surgeon's office for the scheduled time of your surgery. Report to the Surgery Family Waiting Area in the [facility] 2 hours prior to your surgery. You may park in the [facility] of [facility] - a voucher for parking will be provided to you. One family member may accompany you back into the Pre-Op Area. If your surgeon has given you special guidelines for eating and drinking prior to surgery, follow their instructions. If not, the evening before surgery you may eat a low-fat meal up until midnight. Do not eat anything, including gum, cough drops, hard candy or mints after midnight. Do not smoke, chew tobacco or drink alcohol for 24 hours before surgery. Please take any medications you have been instructed to take the morning of your surgery with small sips of water. Please be sure to wear comfortable, appropriate clothing. Please remove all jewelry and piercings, including wedding rings. RINGS WILL BE CUT OFF IF UNABLE TO REMOVE. Leave all valuable items at home. Shower using Dial soap or as advised by your Surgeon's office. Do not apply any makeup or lotions. Gel or acrylic nails must be removed from both fingers. Remove all nail american/product for surgeries involving extremities. Please remember to bring both your insurance card and a photo ID with you on the day of your surgery. After your surgery: If you are having outpatient surgery - you must have a licensed fire truck driver take you home. The expectation is that this fire truck driver will remain at the hospital for the duration of your procedure. You are advised to have a family member with you for at least 24 hours after being under Anesthesia. documented in this encounter [facility] 03-13-2022 History and physical note Delmi Berger 1950 Encounter Diagnoses Name Primary? Pre-op examination Yes Benign neoplasm of brain, unspecified brain region (HCC) Coronary artery disease involving tazlina coronary artery of tazlina heart without angina pectoris Primary hypertension Hyperlipidemia, unspecified hyperlipidemia type Procedure: Left Craniotomy for Tumor Resection with [facility] Surgeon: Dr. Jones PCP: Sherwin Nichols MD Cardiology: Dr. Resendiz Date of Procedure: 03/20/22 ASSESSMENT ON PREOPERATIVE HISTORY AND PHYSICAL EXAMINATION. DATE OF SERVICE Is 03/13/2022. Assessment: 1.Left brain mass. 2.Coronary artery disease. 3.History of myocardial infarction in 2000. 4.History of placement of approximately 10 prior coronary stents. 5.Asymptomatic sinus bradycardia. 6.Premature atrial complexes. 7.Right bundle branch block. 8.Hypertension. 9.Hyperlipidemia. 10.Depression. 11.Generalized anxiety disorder. 12.Gastroesophageal reflux disease. 13.History of temporomandibular syndrome. 14.Cervical degenerative disk disease. 15.Lumbar degenerative disk disease. 16.Osteoarthritis. 17.Possible insulin resistance based on review of previous labs. 18.Previous tobacco use. 19.Family history significant for dementia, Alzheimer's disease, rectal cancer, coronary disease, and diabetes. 1. ASA = 3 . 2. RCRI = 2 . (Score/Risk of Major Cardiac Outcomes - 0/0.4%, 1/0.9%, 2/2.4%, 3 or more/>5.4%. This may overestimate the cardiac risks in lower risk procedures and underestimate the risks in vascular procedures. This study has been externally validated.) 3. Caprini Score = 7 . (Score/Risk of Symptomatic VTE = 0/<0.5%, 1-2/1.5%, 3-4/3.0%, 5 or greater/6% or greater). 4. Apfel Score = 2 . (Score/Risk of PONV = 0/10%, 1/21%, 2/39%, 3/61%, 4/79%) This score has been externally validated. 1. The patient is at increased risk for postoperative delirium. Plan: 1. We will verify with the patient's blind teacher, the patient's cardiac acceptability for the patient's planned procedure. 2. Endocarditis prophylaxis is not required per 2017 ACC/AHA Guidelines and Recommendations. 3. Avoid/limit perioperative hypothermia. 4. Perioperative thromboembolic prophylaxis is recommended per the 2019 [place] [employer] Hemat[employer] Guidelines for Management of VTE: Prevention of VTE in Surgical Hospitalized Patients (or 2019 ACCP Guidelines and Recommendations, or 2011 AAOS Guidelines for orthopedic procedures, or 2009 CHARIS Guidelines for neurosurgical procedures). 5. The patient s head of the bed should be elevated to 30 degrees post-operatively unless contraindicated by the procedure. 6. Recommendations regarding preoperative management of the patient's antiplatelet therapy, anticoagulation therapy, and/or NSAID's will be deferred to the neurosurgical service per current protocol. 7. The patient may use appropriate amounts of acetaminophen pre-operatively for pain management if not allergic and if no history of liver disease. 8. The patient was advised to follow the current [facility] guidelines regarding fluid intake after midnight and to take any recommended medications on the morning of surgery with a sip of water. 9. Ordered laboratory tests will be reviewed pre-operatively and any pertinent abnormalities needing to be addressed will be communicated through Quick Notes. 10. Post-operative spirometry/volurex, deep breathing maneuvers, and early ambulation is recommended if not contraindicated by the procedure. 11. This report will be made available to the requesting surgeon through the electronic medical records. 1. The patient is currently on a scheduled beta-mary, which should be continued perioperatively per 2017 ACC Guidelines and Recommendations. 1. The patient was advised to refrain from taking their CLEMENTE inhibitors or ARB's within 24 hours of surgery per [facility] Anesthesia recommendations. 1. The patient's glucose can be monitored perioperatively with accu-checks and treated with basal insulin plus bolus corrective insulin therapy to maintain a glucose between 140 and 180 (per 2019 ADA guidelines) if needed. 1. For patient's 65 or older consider incorporating the 2016 ACS/AGS Guidelines for Optimal Perioperative Management of the Geriatric Patient. -consider avoiding/limiting the use of opioids, benzodiazepines, antihistamines, and anticholinergics -consider opioid sparing multimodal pain management -consider delirium identification/prevention measures (daily CAM Short Form) -consider fall precautions (Naranjo Fall Scale) -consider nutritional support (ESPEN Guidelines) -consider pressure ulcer prevention (Thad Score) -consider functional decline identification and prevention measures .2. Perioperative nebulizers can be used as needed. PREOPERATIVE HISTORY AND PHYSICAL EXAMINATION DATE OF SERVICE March 13, 2022. HISTORY OF PRESENT ILLNESS Mr. Berger is a pleasant 71-year-old white male with multiple medical problems, who presents today for preoperative consultation, risk stratification at the request of Dr. Peggy Jones for a planned left cr[facility]. The patient reports he does have a history of coronary artery disease and describes having a myocardial infarction in 2000. The patient states he has undergone placement of as many as 10 coronary stents in the past. The patient reports he underwent placement of 2 coronary stents in the fall of 2020. The patient does state this was performed through [facility]. The patient does follow with Dr. Resendiz at the [facility] for his cardiac issues. We will reach out to Dr. Resendiz to verify the patient's cardiac acceptability for the patient's upcoming procedure. The patient is noted to be on dual anti-platelet therapy currently. Given the nature of the patient's planned surgery, he may benefit by discontinuation of his anti-platelet therapy 7 to 10 days preoperatively. The patient does have a history of hypertension and hyperlipidemia, which he believes to be adequately controlled on his current regimen. The patient is noted to be on a beta blocking agent currently. The patient does not report a history of diabetes; however, when reviewing the patient's [facility] medical records, the patient does demonstrate slight elevations in his glucose levels. The patient may benefit by having his glucose monitored perioperatively and treated with corrective insulin therapy as felt to be necessary. The patient denies a history of renal insufficiency, cerebrovascular disease, peripheral vascular or valvular heart disease. The patient states he is not known to snore excessively when he sleeps and does not necessarily appear to be at risk for sleep apnea based on his statements today. The patient does not have a history of fatty liver disease. The patient has undergone several surgeries in the past, all of which were uneventful from a cardiac and anesthesia standpoint. The patient reports he does exercise at his local [facility] and states he is able to walk up 2 flights of stairs. At a described functional capacity of 4 METs, the patient has no active cardiac symptoms such as chest pain, atypical chest pain, palpitations, syncope, near syncope, orthopnea, PND, lower extremity edema, claudication, dyspnea on exertion, or shortness of breath. The patient's EKG today (per my interpretation) demonstrates sinus bradycardia with premature atrial complexes and a right bundle branch block. The patient states he did smoke up until 1987. The patient does not believe he has COPD or emphysema associated with his tobacco use. The patient's lung exam is clear today with a room air pulse oximeter of 96%. The patient does have cardiac disease in his family history. The patient denies any personal or family history significant for bleeding diathesis or thromboembolic disease. The patient has no acute complaints currently. Allergies Allergen Reactions Atorvastatin Other (See Comments) Chest pain Penicillins Itching Active Home Medications Medication Sig Take Last Dose On Take Morning of Surgery Comment(s) amLODIPine (NORVASC) 10 MG tablet Take 1 (one) tablet (10 mg total) by mouth every morning . ascorbic acid, vitamin C, (vitamin C) 1000 MG tablet Take 1 (one) tablet (1,000 mg total) by mouth every morning . aspirin 81 mg chewable tablet Chew and Swallow 1 (one) tablet (81 mg total) every morning . cholecalciferol, vitamin D3, 50 mcg (2,000 unit) Tab Take 1 (one) tablet (2,000 Units total) by mouth every morning . clopidogreL (PLAVIX) 75 mg tablet Take 1 (one) tablet (75 mg total) by mouth every morning . cyanocobalamin (B-12) 1000 MCG tablet Take 1 (one) tablet (1,000 mcg total) by mouth every morning . escitalopram oxalate (LEXAPRO) 10 MG tablet Take 1 (one) tablet (10 mg total) by mouth every morning . evolocumab 140 mg/mL Syrg Inject 1 mL (140 mg total) under the skin every 14 (fourteen) days . lisinopril (PRINIVIL,ZESTRIL) 10 MG tablet Take 1 (one) tablet (10 mg total) by mouth every morning . magnesium oxide (MAG-OX) 400 mg (241.3 mg magnesium) tablet Take 1 (one) tablet (400 mg total) by mouth every morning . metoprolol succinate (TOPROL-XL) 25 MG 24 hr tablet Take 1 (one) tablet (25 mg total) by mouth every morning . NONFORMULARY Take 1 tablet by mouth every morning Ceralin Forte . ubidecarenone/vitamin E mixed (COQ10 SG 100 ORAL) Take 1 tablet by mouth every morning . zinc 50 mg Tab Take 1 (one) tablet (50 mg total) by mouth every morning . Past Medical History: Diagnosis Date Anxiety Arrhythmia Arthritis Back pain CAD (coronary artery disease) s/p approx 10 stents thru 11/2020 Cerebral cyst L hemisphere; has previously followed with Dr. Jones Cervical spine pain 2013 MRI cervical spine showed some right-sided neuroforaminal stenosis C3-4 and C4-5. Previously evaluated by Dr. Peggy Jones (neurosurgery) and treated conservatively with PT. Modest symptoms as of 2017 Episodic lightheadedness 2004 especially exposed to heat & exertion; dizziness/ lightheadedness GERD (gastroesophageal reflux disease) Headache, tension-type 03/13/22: Resolved per pt. History of cardiac cath HLD (hyperlipidemia) HTN (hypertension) TX (myocardial infarction) ([facility]) october 2000 TMJ (temporomandibular joint disorder) symptoms resolved with mouth guard - treated by dentist Past Surgical History: Procedure Laterality Date ANKLE FRACTURE SURGERY Right APPENDECTOMY CARDIAC CATHETERIZATION numerous COLONOSCOPY N/A 07/20/2018 Procedure: COLONOSCOPY; Surgeon: Enrrique Arias MD; Location: [facility] [place] OR; Service: General Surgery CORONARY STENT PLACEMENT pt states has about 10 stents - most recent 11/2020 at [facility] ESOPHAGOGASTRODUODENOSCOPY many years ago HARDWARE REMOVAL ANKLE Right NASAL SINUS SURGERY 2012 , Yanira Negro MD surgeon REPAIR HERNIA INGUINAL ROBOTIC XI Right 02/11/2019 Procedure: REPAIR HERNIA INGUINAL ROBOTIC XI; Surgeon: Enrrique Arias MD; Location: Main OR; Service: Gen-Robotics Social History Socioeconomic History Marital status: Number of children: 1 Tobacco Use Smoking status: Former Packs/day: 0.25 Years: 5.00 Pack years: 1.25 Types: Cigarettes Quit date: 03/02/1987 Years since quittin.0 Smokeless tobacco: Never Vaping Use Vaping Use: Never used Substance and Sexual Activity Alcohol use: No Drug use: No Family History Problem Relation Age of Onset Dementia Mother Alzheimer's disease Mother Rectal cancer Father Heart disease Brother Heart disease Maternal Uncle Diabetes Maternal Uncle Review of Systems Constitutional: Negative for chills, decreased appetite, diaphoresis, fever, malaise/fatigue, night sweats, weight gain and weight loss. HENT: Negative. Negative for congestion, ear discharge, ear pain, hearing loss, hoarse voice, nosebleeds, odynophagia, sore throat, stridor and tinnitus. Eyes: Negative for blurred vision, discharge, double vision, pain, photophobia, redness, vision loss in left eye, vision loss in right eye, visual disturbance and visual halos. Cardiovascular: Positive for irregular heartbeat. Negative for chest pain, claudication, cyanosis, dyspnea on exertion, leg swelling, near-syncope, orthopnea, palpitations, paroxysmal nocturnal dyspnea and syncope. Respiratory: Negative. Negative for cough, hemoptysis, shortness of breath, sleep disturbances due to breathing, snoring, sputum production and wheezing. Endocrine: Negative for cold intolerance, heat intolerance, polydipsia, polyphagia and polyuria. Hematologic/Lymphatic: Negative for adenopathy and bleeding problem. Does not bruise/bleed easily. Skin: Negative. Negative for color change, dry skin, flushing, itching, nail changes, poor wound healing, rash, skin cancer, suspicious lesions and unusual hair distribution. Musculoskeletal: Positive for arthritis, back pain and neck pain. Negative for falls, gout, joint pain, joint swelling, muscle cramps, muscle weakness, myalgias and stiffness. Gastrointestinal: Positive for heartburn. Negative for bloating, abdominal pain, anorexia, change in bowel habit, bowel incontinence, constipation, diarrhea, dysphagia, excessive appetite, flatus, hematemesis, hematochezia, hemorrhoids, jaundice, melena, nausea and vomiting. Genitourinary: Negative for bladder incontinence, decreased libido, dysuria, flank pain, frequency, genital sores, hematuria, hesitancy, incomplete emptying, menorrhagia, missed menses, nocturia, non-menstrual bleeding, pelvic pain and urgency. Neurological: Positive for headaches. Negative for aphonia, brief paralysis, difficulty with concentration, disturbances in coordination, excessive daytime sleepiness, dizziness, focal weakness, light-headedness, loss of balance, numbness, paresthesias, seizures, sensory change, tremors, vertigo and weakness. Psychiatric/Behavioral: Positive for depression. Negative for altered mental status, hallucinations, hypervigilance, memory loss, substance abuse, suicidal ideas and thoughts of violence. The patient is nervous/anxious. The patient does not have insomnia. Allergic/Immunologic: Negative for environmental allergies, HIV exposure, hives and persistent infections. Vitals: 03/13/22 1346 03/13/22 1433 BP: 136/76 Pulse: 60 Resp: 16 Temp: 98.7 F (37.1 C) SpO2: 96% Weight: 77.9 kg (171 lb 10.1 oz) 77.9 kg (171 lb 10.1 oz) Height: 5' 6 5' 6 Physical Exam Vitals and nursing note reviewed. Constitutional: General: He is not in acute distress. Appearance: He is well-developed and well-nourished. He is not diaphoretic. HENT: Head: Normocephalic. Right Ear: External ear normal. Left Ear: External ear normal. Nose: Nose normal. Mouth/Throat: Mouth: Oropharynx is clear and moist. Pharynx: No oropharyngeal exudate. Eyes: General: Right eye: No discharge. Left eye: No discharge. Extraocular Movements: EOM normal. Conjunctiva/sclera: Conjunctivae normal. Pupils: Pupils are equal, round, and reactive to light. Neck: Thyroid: No thyromegaly. Vascular: No JVD. Trachea: No tracheal deviation. Cardiovascular: Rate and Rhythm: Normal rate and regular rhythm. Pulses: Intact distal pulses. Heart sounds: Normal heart sounds. No murmur heard. No friction rub. No gallop. Pulmonary: Effort: Pulmonary effort is normal. No respiratory distress. Breath sounds: Normal breath sounds. No stridor. No wheezing or rales. Chest: Chest wall: No tenderness. Abdominal: General: Bowel sounds are normal. There is no distension. Palpations: Abdomen is soft. There is no mass. Tenderness: There is no abdominal tenderness. There is no guarding or rebound. Hernia: No hernia is present. Musculoskeletal: General: No tenderness or edema. Normal range of motion. Cervical back: Normal range of motion and neck supple. Lymphadenopathy: Cervical: No cervical adenopathy. Skin: General: Skin is warm and dry. Coloration: Skin is not pale. Findings: No erythema or rash. Neurological: Mental Status: He is alert and oriented to person, place, and time. Cranial Nerves: No cranial nerve deficit. Motor: No abnormal muscle tone. Coordination: Coordination normal. Deep Tendon Reflexes: Reflexes are normal and symmetric. Reflexes normal. Psychiatric: Mood and Affect: Mood and affect normal. Behavior: Behavior normal. Thought Content: Thought content normal. Judgment: Judgment normal. Sanchez Washington DO [employer] Work Phone: 03-13-2022 History and physical note Delmi Berger 1950 Encounter Diagnoses Name Primary? Pre-op examination Yes Benign neoplasm of brain, unspecified brain region (HCC) Coronary artery disease involving tazlina coronary artery of tazlina heart without angina pectoris Primary hypertension Hyperlipidemia, unspecified hyperlipidemia type Procedure: Left Craniotomy for Tumor Resection with [facility] Surgeon: Dr. Jones PCP: Sherwin Nichols MD Cardiology: Dr. Resendiz Date of Procedure: 03/20/22 ASSESSMENT ON PREOPERATIVE HISTORY AND PHYSICAL EXAMINATION. DATE OF SERVICE Is 03/13/2022. Assessment: 1.Left brain mass. 2.Coronary artery disease. 3.History of myocardial infarction in 2000. 4.History of placement of approximately 10 prior coronary stents. 5.Asymptomatic sinus bradycardia. 6.Premature atrial complexes. 7.Right bundle branch block. 8.Hypertension. 9.Hyperlipidemia. 10.Depression. 11.Generalized anxiety disorder. 12.Gastroesophageal reflux disease. 13.History of temporomandibular syndrome. 14.Cervical degenerative disk disease. 15.Lumbar degenerative disk disease. 16.Osteoarthritis. 17.Possible insulin resistance based on review of previous labs. 18.Previous tobacco use. 19.Family history significant for dementia, Alzheimer's disease, rectal cancer, coronary disease, and diabetes. 1. ASA = 3 . 2. RCRI = 2 . (Score/Risk of Major Cardiac Outcomes - 0/0.4%, 1/0.9%, 2/2.4%, 3 or more/>5.4%. This may overestimate the cardiac risks in lower risk procedures and underestimate the risks in vascular procedures. This study has been externally validated.) 3. Caprini Score = 7 . (Score/Risk of Symptomatic VTE = 0/<0.5%, 1-2/1.5%, 3-4/3.0%, 5 or greater/6% or greater). 4. Apfel Score = 2 . (Score/Risk of PONV = 0/10%, 1/21%, 2/39%, 3/61%, 4/79%) This score has been externally validated. 1. The patient is at increased risk for postoperative delirium. Plan: 1. We will verify with the patient's blind teacher, the patient's cardiac acceptability for the patient's planned procedure. 2. Endocarditis prophylaxis is not required per 2017 ACC/AHA Guidelines and Recommendations. 3. Avoid/limit perioperative hypothermia. 4. Perioperative thromboembolic prophylaxis is recommended per the 2019 [place] [employer] Hemat[employer] Guidelines for Management of VTE: Prevention of VTE in Surgical Hospitalized Patients (or 2019 ACCP Guidelines and Recommendations, or 2011 AAOS Guidelines for orthopedic procedures, or 2009 CHARIS Guidelines for neurosurgical procedures). 5. The patient s head of the bed should be elevated to 30 degrees post-operatively unless contraindicated by the procedure. 6. Recommendations regarding preoperative management of the patient's antiplatelet therapy, anticoagulation therapy, and/or NSAID's will be deferred to the neurosurgical service per current protocol. 7. The patient may use appropriate amounts of acetaminophen pre-operatively for pain management if not allergic and if no history of liver disease. 8. The patient was advised to follow the current [facility] guidelines regarding fluid intake after midnight and to take any recommended medications on the morning of surgery with a sip of water. 9. Ordered laboratory tests will be reviewed pre-operatively and any pertinent abnormalities needing to be addressed will be communicated through Quick Notes. 10. Post-operative spirometry/volurex, deep breathing maneuvers, and early ambulation is recommended if not contraindicated by the procedure. 11. This report will be made available to the requesting surgeon through the electronic medical records. 1. The patient is currently on a scheduled beta-mary, which should be continued perioperatively per 2017 ACC Guidelines and Recommendations. 1. The patient was advised to refrain from taking their CLEMENTE inhibitors or ARB's within 24 hours of surgery per [facility] Anesthesia recommendations. 1. The patient's glucose can be monitored perioperatively with accu-checks and treated with basal insulin plus bolus corrective insulin therapy to maintain a glucose between 140 and 180 (per 2019 ADA guidelines) if needed. 1. For patient's 65 or older consider incorporating the 2016 ACS/AGS Guidelines for Optimal Perioperative Management of the Geriatric Patient. -consider avoiding/limiting the use of opioids, benzodiazepines, antihistamines, and anticholinergics -consider opioid sparing multimodal pain management -consider delirium identification/prevention measures (daily CAM Short Form) -consider fall precautions (Naranjo Fall Scale) -consider nutritional support (ESPEN Guidelines) -consider pressure ulcer prevention (Thad Score) -consider functional decline identification and prevention measures .2. Perioperative nebulizers can be used as needed. PREOPERATIVE HISTORY AND PHYSICAL EXAMINATION DATE OF SERVICE March 13, 2022. HISTORY OF PRESENT ILLNESS Mr. Berger is a pleasant 71-year-old white male with multiple medical problems, who presents today for preoperative consultation, risk stratification at the request of Dr. Peggy Jones for a planned left craniotomy for tumor resection with [facility] on March 20, 2022. The patient reports he does have a history of coronary artery disease and describes having a myocardial infarction in 2000. The patient states he has undergone placement of as many as 10 coronary stents in the past. The patient reports he underwent placement of 2 coronary stents in the fall of 2020. The patient does state this was performed through [facility]. The patient does follow with Dr. Resendiz at the [facility] for his cardiac issues. We will reach out to Dr. Resendiz to verify the patient's cardiac acceptability for the patient's upcoming procedure. The patient is noted to be on dual anti-platelet therapy currently. Given the nature of the patient's planned surgery, he may benefit by discontinuation of his anti-platelet therapy 7 to 10 days preoperatively. The patient does have a history of hypertension and hyperlipidemia, which he believes to be adequately controlled on his current regimen. The patient is noted to be on a beta blocking agent currently. The patient does not report a history of diabetes; however, when reviewing the patient's [facility] medical records, the patient does demonstrate slight elevations in his glucose levels. The patient may benefit by having his glucose monitored perioperatively and treated with corrective insulin therapy as felt to be necessary. The patient denies a history of renal insufficiency, cerebrovascular disease, peripheral vascular or valvular heart disease. The patient states he is not known to snore excessively when he sleeps and does not necessarily appear to be at risk for sleep apnea based on his statements today. The patient does not have a history of fatty liver disease. The patient has undergone several surgeries in the past, all of which were uneventful from a cardiac and anesthesia standpoint. The patient reports he does exercise at his local [facility] and states he is able to walk up 2 flights of stairs. At a described functional capacity of 4 METs, the patient has no active cardiac symptoms such as chest pain, atypical chest pain, palpitations, syncope, near syncope, orthopnea, PND, lower extremity edema, claudication, dyspnea on exertion, or shortness of breath. The patient's EKG today (per my interpretation) demonstrates sinus bradycardia with premature atrial complexes and a right bundle branch block. The patient states he did smoke up until 1987. The patient does not believe he has COPD or emphysema associated with his tobacco use. The patient's lung exam is clear today with a room air pulse oximeter of 96%. The patient does have cardiac disease in his family history. The patient denies any personal or family history significant for bleeding diathesis or thromboembolic disease. The patient has no acute complaints currently. Allergies Allergen Reactions Atorvastatin Other (See Comments) Chest pain Penicillins Itching Active Home Medications Medication Sig Take Last Dose On Take Morning of Surgery Comment(s) amLODIPine (NORVASC) 10 MG tablet Take 1 (one) tablet (10 mg total) by mouth every morning . ascorbic acid, vitamin C, (vitamin C) 1000 MG tablet Take 1 (one) tablet (1,000 mg total) by mouth every morning . aspirin 81 mg chewable tablet Chew and Swallow 1 (one) tablet (81 mg total) every morning . cholecalciferol, vitamin D3, 50 mcg (2,000 unit) Tab Take 1 (one) tablet (2,000 Units total) by mouth every morning . clopidogreL (PLAVIX) 75 mg tablet Take 1 (one) tablet (75 mg total) by mouth every morning . cyanocobalamin (B-12) 1000 MCG tablet Take 1 (one) tablet (1,000 mcg total) by mouth every morning . escitalopram oxalate (LEXAPRO) 10 MG tablet Take 1 (one) tablet (10 mg total) by mouth every morning . evolocumab 140 mg/mL Syrg Inject 1 mL (140 mg total) under the skin every 14 (fourteen) days . lisinopril (PRINIVIL,ZESTRIL) 10 MG tablet Take 1 (one) tablet (10 mg total) by mouth every morning . magnesium oxide (MAG-OX) 400 mg (241.3 mg magnesium) tablet Take 1 (one) tablet (400 mg total) by mouth every morning . metoprolol succinate (TOPROL-XL) 25 MG 24 hr tablet Take 1 (one) tablet (25 mg total) by mouth every morning . NONFORMULARY Take 1 tablet by mouth every morning Ceralin Forte . ubidecarenone/vitamin E mixed (COQ10 SG 100 ORAL) Take 1 tablet by mouth every morning . zinc 50 mg Tab Take 1 (one) tablet (50 mg total) by mouth every morning . Past Medical History: Diagnosis Date Anxiety Arrhythmia Arthritis Back pain CAD (coronary artery disease) s/p approx 10 stents thru 11/2020 Cerebral cyst L hemisphere; has previously followed with Dr. Jones Cervical spine pain 2013 MRI cervical spine showed some right-sided neuroforaminal stenosis C3-4 and C4-5. Previously evaluated by Dr. Peggy Jones (neurosurgery) and treated conservatively with PT. Modest symptoms as of 2018 Episodic lightheadedness 2004 especially exposed to heat & exertion; dizziness/ lightheadedness GERD (gastroesophageal reflux disease) Headache, tension-type 03/13/22: Resolved per pt. History of cardiac cath HLD (hyperlipidemia) HTN (hypertension) TX (myocardial infarction) (HCC) october 2000 TMJ (temporomandibular joint disorder) symptoms resolved with mouth guard - treated by dentist Past Surgical History: Procedure Laterality Date ANKLE FRACTURE SURGERY Right APPENDECTOMY CARDIAC CATHETERIZATION numerous COLONOSCOPY N/A 07/20/2018 Procedure: COLONOSCOPY; Surgeon: Enrrique Arias MD; Location: [facility] [place]; Service: General Surgery CORONARY STENT PLACEMENT pt states has about 10 stents - most recent 11/2020 at [facility] ESOPHAGOGASTRODUODENOSCOPY many years ago HARDWARE REMOVAL ANKLE Right NASAL SINUS SURGERY 2012 , Yanira Negro MD surgeon REPAIR HERNIA INGUINAL ROBOTIC XI Right 02/11/2019 Procedure: REPAIR HERNIA INGUINAL ROBOTIC XI; Surgeon: Enrrique Arias MD; Location: Main OR; Service: [employer]otics Social History Socioeconomic History Marital status: Number of children: 1 Tobacco Use Smoking status: Former Packs/day: 0.25 Years: 5.00 Pack years: 1.25 Types: Cigarettes Quit date: 03/02/1987 Years since quittin.0 Smokeless tobacco: Never Vaping Use Vaping Use: Never used Substance and Sexual Activity Alcohol use: No Drug use: No Family History Problem Relation Age of Onset Dementia Mother Alzheimer's disease Mother Rectal cancer Father Heart disease Brother Heart disease Maternal Uncle Diabetes Maternal Uncle Review of Systems Constitutional: Negative for chills, decreased appetite, diaphoresis, fever, malaise/fatigue, night sweats, weight gain and weight loss. HENT: Negative. Negative for congestion, ear discharge, ear pain, hearing loss, hoarse voice, nosebleeds, odynophagia, sore throat, stridor and tinnitus. Eyes: Negative for blurred vision, discharge, double vision, pain, photophobia, redness, vision loss in left eye, vision loss in right eye, visual disturbance and visual halos. Cardiovascular: Positive for irregular heartbeat. Negative for chest pain, claudication, cyanosis, dyspnea on exertion, leg swelling, near-syncope, orthopnea, palpitations, paroxysmal nocturnal dyspnea and syncope. Respiratory: Negative. Negative for cough, hemoptysis, shortness of breath, sleep disturbances due to breathing, snoring, sputum production and wheezing. Endocrine: Negative for cold intolerance, heat intolerance, polydipsia, polyphagia and polyuria. Hematologic/Lymphatic: Negative for adenopathy and bleeding problem. Does not bruise/bleed easily. Skin: Negative. Negative for color change, dry skin, flushing, itching, nail changes, poor wound healing, rash, skin cancer, suspicious lesions and unusual hair distribution. Musculoskeletal: Positive for arthritis, back pain and neck pain. Negative for falls, gout, joint pain, joint swelling, muscle cramps, muscle weakness, myalgias and stiffness. Gastrointestinal: Positive for heartburn. Negative for bloating, abdominal pain, anorexia, change in bowel habit, bowel incontinence, constipation, diarrhea, dysphagia, excessive appetite, flatus, hematemesis, hematochezia, hemorrhoids, jaundice, melena, nausea and vomiting. Genitourinary: Negative for bladder incontinence, decreased libido, dysuria, flank pain, frequency, genital sores, hematuria, hesitancy, incomplete emptying, menorrhagia, missed menses, nocturia, non-menstrual bleeding, pelvic pain and urgency. Neurological: Positive for headaches. Negative for aphonia, brief paralysis, difficulty with concentration, disturbances in coordination, excessive daytime sleepiness, dizziness, focal weakness, light-headedness, loss of balance, numbness, paresthesias, seizures, sensory change, tremors, vertigo and weakness. Psychiatric/Behavioral: Positive for depression. Negative for altered mental status, hallucinations, hypervigilance, memory loss, substance abuse, suicidal ideas and thoughts of violence. The patient is nervous/anxious. The patient does not have insomnia. Allergic/Immunologic: Negative for environmental allergies, HIV exposure, hives and persistent infections. Vitals: 03/13/22 1346 03/13/22 1433 BP: 136/76 Pulse: 60 Resp: 16 Temp: 98.7 F (37.1 C) SpO2: 96% Weight: 77.9 kg (171 lb 10.1 oz) 77.9 kg (171 lb 10.1 oz) Height: 5' 6 5' 6 Physical Exam Vitals and nursing note reviewed. Constitutional: General: He is not in acute distress. Appearance: He is well-developed and well-nourished. He is not diaphoretic. HENT: Head: Normocephalic. Right Ear: External ear normal. Left Ear: External ear normal. Nose: Nose normal. Mouth/Throat: Mouth: Oropharynx is clear and moist. Pharynx: No oropharyngeal exudate. Eyes: General: Right eye: No discharge. Left eye: No discharge. Extraocular Movements: EOM normal. Conjunctiva/sclera: Conjunctivae normal. Pupils: Pupils are equal, round, and reactive to light. Neck: Thyroid: No thyromegaly. Vascular: No JVD. Trachea: No tracheal deviation. Cardiovascular: Rate and Rhythm: Normal rate and regular rhythm. Pulses: Intact distal pulses. Heart sounds: Normal heart sounds. No murmur heard. No friction rub. No gallop. Pulmonary: Effort: Pulmonary effort is normal. No respiratory distress. Breath sounds: Normal breath sounds. No stridor. No wheezing or rales. Chest: Chest wall: No tenderness. Abdominal: General: Bowel sounds are normal. There is no distension. Palpations: Abdomen is soft. There is no mass. Tenderness: There is no abdominal tenderness. There is no guarding or rebound. Hernia: No hernia is present. Musculoskeletal: General: No tenderness or edema. Normal range of motion. Cervical back: Normal range of motion and neck supple. Lymphadenopathy: Cervical: No cervical adenopathy. Skin: General: Skin is warm and dry. Coloration: Skin is not pale. Findings: No erythema or rash. Neurological: Mental Status: He is alert and oriented to person, place, and time. Cranial Nerves: No cranial nerve deficit. Motor: No abnormal muscle tone. Coordination: Coordination normal. Deep Tendon Reflexes: Reflexes are normal and symmetric. Reflexes normal. Psychiatric: Mood and Affect: Mood and affect normal. Behavior: Behavior normal. Thought Content: Thought content normal. Judgment: Judgment normal. Sanchez Washington DO documented in this encounter [facility] 03-13-2022 History and physical note Delmi Berger 1950 Encounter Diagnoses Name Primary? Pre-op examination Yes Benign neoplasm of brain, unspecified brain region (HCC) Coronary artery disease involving [place] coronary artery of [place] heart without angina pectoris Primary hypertension Hyperlipidemia, unspecified hyperlipidemia type Procedure: Left Craniotomy for Tumor Resection with [facility] Surgeon: Dr. Jones PCP: Sherwin Nichols MD Cardiology: Dr. Resendiz Date of Procedure: 03/20/22 ASSESSMENT ON PREOPERATIVE HISTORY AND PHYSICAL EXAMINATION. DATE OF SERVICE Is 03/13/2022. Assessment: 1.Left brain mass. 2.Coronary artery disease. 3.History of myocardial infarction in 2000. 4.History of placement of approximately 10 prior coronary stents. 5.Asymptomatic sinus bradycardia. 6.Premature atrial complexes. 7.Right bundle branch block. 8.Hypertension. 9.Hyperlipidemia. 10.Depression. 11.Generalized anxiety disorder. 12.Gastroesophageal reflux disease. 13.History of temporomandibular syndrome. 14.Cervical degenerative disk disease. 15.Lumbar degenerative disk disease. 16.Osteoarthritis. 17.Possible insulin resistance based on review of previous labs. 18.Previous tobacco use. 19.Family history significant for dementia, Alzheimer's disease, rectal cancer, coronary disease, and diabetes. 1. ASA = 3 . 2. RCRI = 2 . (Score/Risk of Major Cardiac Outcomes - 0/0.4%, 1/0.9%, 2/2.4%, 3 or more/>5.4%. This may overestimate the cardiac risks in lower risk procedures and underestimate the risks in vascular procedures. This study has been externally validated.) 3. Caprini Score = 7 . (Score/Risk of Symptomatic VTE = 0/<0.5%, 1-2/1.5%, 3-4/3.0%, 5 or greater/6% or greater). 4. Apfel Score = 2 . (Score/Risk of PONV = 0/10%, 1/21%, 2/39%, 3/61%, 4/79%) This score has been externally validated. 1. The patient is at increased risk for postoperative delirium. Plan: 1. We will verify with the patient's blind teacher, the patient's cardiac acceptability for the patient's planned procedure. 2. Endocarditis prophylaxis is not required per 2017 ACC/AHA Guidelines and Recommendations. 3. Avoid/limit perioperative hypothermia. 4. Perioperative thromboembolic prophylaxis is recommended per the 2019 [place] [employer]emat[employer] Guidelines for Management of VTE: Prevention of VTE in Surgical Hospitalized Patients (or 2019 ACCP Guidelines and Recommendations, or 2011 AAOS Guidelines for orthopedic procedures, or 2009 CHARIS Guidelines for neurosurgical procedures). 5. The patient s head of the bed should be elevated to 30 degrees post-operatively unless contraindicated by the procedure. 6. Recommendations regarding preoperative management of the patient's antiplatelet therapy, anticoagulation therapy, and/or NSAID's will be deferred to the neurosurgical service per current protocol. 7. The patient may use appropriate amounts of acetaminophen pre-operatively for pain management if not allergic and if no history of liver disease. 8. The patient was advised to follow the current [facility] guidelines regarding fluid intake after midnight and to take any recommended medications on the morning of surgery with a sip of water. 9. Ordered laboratory tests will be reviewed pre-operatively and any pertinent abnormalities needing to be addressed will be communicated through Quick Notes. 10. Post-operative spirometry/volurex, deep breathing maneuvers, and early ambulation is recommended if not contraindicated by the procedure. 11. This report will be made available to the requesting surgeon through the electronic medical records. 1. The patient is currently on a scheduled beta-mary, which should be continued perioperatively per 2017 ACC Guidelines and Recommendations. 1. The patient was advised to refrain from taking their CLEMENTE inhibitors or ARB's within 24 hours of surgery per [facility] Anesthesia recommendations. 1. The patient's glucose can be monitored perioperatively with accu-checks and treated with basal insulin plus bolus corrective insulin therapy to maintain a glucose between 140 and 180 (per 2019 ADA guidelines) if needed. 1. For patient's 65 or older consider incorporating the 2016 ACS/AGS Guidelines for Optimal Perioperative Management of the Geriatric Patient. -consider avoiding/limiting the use of opioids, benzodiazepines, antihistamines, and anticholinergics -consider opioid sparing multimodal pain management -consider delirium identification/prevention measures (daily CAM Short Form) -consider fall precautions (Naranjo Fall Scale) -consider nutritional support (ESPEN Guidelines) -consider pressure ulcer prevention (Thad Score) -consider functional decline identification and prevention measures .2. Perioperative nebulizers can be used as needed. PREOPERATIVE HISTORY AND PHYSICAL EXAMINATION DATE OF SERVICE March 13, 2022. HISTORY OF PRESENT ILLNESS Mr. Berger is a pleasant 71-year-old white male with multiple medical problems, who presents today for preoperative consultation, risk stratification at the request of Dr. Peggy Jones for a planned left craniotomy for tumor resection with [facility] on March 20, 2022. The patient reports he does have a history of coronary artery disease and describes having a myocardial infarction in 2000. The patient states he has undergone placement of as many as 10 coronary stents in the past. The patient reports he underwent placement of 2 coronary stents in the fall of 2020. The patient does state this was performed through [facility]. The patient does follow with Dr. Resendiz at the [facility] for his cardiac issues. We will reach out to Dr. Resendiz to verify the patient's cardiac acceptability for the patient's upcoming procedure. The patient is noted to be on dual anti-platelet therapy currently. Given the nature of the patient's planned surgery, he may benefit by discontinuation of his anti-platelet therapy 7 to 10 days preoperatively. The patient does have a history of hypertension and hyperlipidemia, which he believes to be adequately controlled on his current regimen. The patient is noted to be on a beta blocking agent currently. The patient does not report a history of diabetes; however, when reviewing the patient's [facility] medical records, the patient does demonstrate slight elevations in his glucose levels. The patient may benefit by having his glucose monitored perioperatively and treated with corrective insulin therapy as felt to be necessary. The patient denies a history of renal insufficiency, cerebrovascular disease, peripheral vascular or valvular heart disease. The patient states he is not known to snore excessively when he sleeps and does not necessarily appear to be at risk for sleep apnea based on his statements today. The patient does not have a history of fatty liver disease. The patient has undergone several surgeries in the past, all of which were uneventful from a cardiac and anesthesia standpoint. The patient reports he does exercise at his local [facility] and states he is able to walk up 2 flights of stairs. At a described functional capacity of 4 METs, the patient has no active cardiac symptoms such as chest pain, atypical chest pain, palpitations, syncope, near syncope, orthopnea, PND, lower extremity edema, claudication, dyspnea on exertion, or shortness of breath. The patient's EKG today (per my interpretation) demonstrates sinus bradycardia with premature atrial complexes and a right bundle branch block. The patient states he did smoke up until 1987. The patient does not believe he has COPD or emphysema associated with his tobacco use. The patient's lung exam is clear today with a room air pulse oximeter of 96%. The patient does have cardiac disease in his family history. The patient denies any personal or family history significant for bleeding diathesis or thromboembolic disease. The patient has no acute complaints currently. Allergies Allergen Reactions Atorvastatin Other (See Comments) Chest pain Penicillins Itching Active Home Medications Medication Sig Take Last Dose On Take Morning of Surgery Comment(s) amLODIPine (NORVASC) 10 MG tablet Take 1 (one) tablet (10 mg total) by mouth every morning . ascorbic acid, vitamin C, (vitamin C) 1000 MG tablet Take 1 (one) tablet (1,000 mg total) by mouth every morning . aspirin 81 mg chewable tablet Chew and Swallow 1 (one) tablet (81 mg total) every morning . cholecalciferol, vitamin D3, 50 mcg (2,000 unit) Tab Take 1 (one) tablet (2,000 Units total) by mouth every morning . clopidogreL (PLAVIX) 75 mg tablet Take 1 (one) tablet (75 mg total) by mouth every morning . cyanocobalamin (B-12) 1000 MCG tablet Take 1 (one) tablet (1,000 mcg total) by mouth every morning . escitalopram oxalate (LEXAPRO) 10 MG tablet Take 1 (one) tablet (10 mg total) by mouth every morning . evolocumab 140 mg/mL Syrg Inject 1 mL (140 mg total) under the skin every 14 (fourteen) days . lisinopril (PRINIVIL,ZESTRIL) 10 MG tablet Take 1 (one) tablet (10 mg total) by mouth every morning . magnesium oxide (MAG-OX) 400 mg (241.3 mg magnesium) tablet Take 1 (one) tablet (400 mg total) by mouth every morning . metoprolol succinate (TOPROL-XL) 25 MG 24 hr tablet Take 1 (one) tablet (25 mg total) by mouth every morning . NONFORMULARY Take 1 tablet by mouth every morning Ceralin Forte . ubidecarenone/vitamin E mixed (COQ10 SG 100 ORAL) Take 1 tablet by mouth every morning . zinc 50 mg Tab Take 1 (one) tablet (50 mg total) by mouth every morning . Past Medical History: Diagnosis Date Anxiety Arrhythmia Arthritis Back pain CAD (coronary artery disease) s/p approx 10 stents thru 11/2020 Cerebral cyst L hemisphere; has previously followed with Dr. Jones Cervical spine pain 2013 MRI cervical spine showed some right-sided neuroforaminal stenosis C3-4 and C4-5. Previously evaluated by Dr. Peggy Jones (neurosurgery) and treated conservatively with PT. Modest symptoms as of 2018 Episodic lightheadedness 2004 especially exposed to heat & exertion; dizziness/ lightheadedness GERD (gastroesophageal reflux disease) Headache, tension-type 03/13/22: Resolved per pt. History of cardiac cath HLD (hyperlipidemia) HTN (hypertension) TX (myocardial infarction) (HCC) october 2000 TMJ (temporomandibular joint disorder) symptoms resolved with mouth guard - treated by dentist Past Surgical History: Procedure Laterality Date ANKLE FRACTURE SURGERY Right APPENDECTOMY CARDIAC CATHETERIZATION numerous COLONOSCOPY N/A 07/20/2018 Procedure: COLONOSCOPY; Surgeon: Enrrique Arias MD; Location: [facility] [place] OR; Service: General Surgery CORONARY STENT PLACEMENT [facility] has about 10 stents - most recent 11/2020 at [facility] ESOPHAGOGASTRODUODENOSCOPY many years ago HARDWARE REMOVAL ANKLE Right NASAL SINUS SURGERY 2012 Yanira Kaur MD surgeon REPAIR HERNIA INGUINAL ROBOTIC XI Right 02/11/2019 Procedure: REPAIR HERNIA INGUINAL ROBOTIC XI; Surgeon: Enrrique Arias MD; Location: [facility] OR; Service: [employer] Social History Socioeconomic History Marital status: Number of children: 1 Tobacco Use Smoking status: Former Packs/day: 0.25 Years: 5.00 Pack years: 1.25 Types: Cigarettes Quit date: 03/02/1987 Years since quittin.0 Smokeless tobacco: Never Vaping Use Vaping Use: Never used Substance and Sexual Activity Alcohol use: No Drug use: No Family History Problem Relation Age of Onset Dementia Mother Alzheimer's disease Mother Rectal cancer Father Heart disease Brother Heart disease Maternal Uncle Diabetes Maternal Uncle Review of Systems Constitutional: Negative for chills, decreased appetite, diaphoresis, fever, malaise/fatigue, night sweats, weight gain and weight loss. HENT: Negative. Negative for congestion, ear discharge, ear pain, hearing loss, hoarse voice, nosebleeds, odynophagia, sore throat, stridor and tinnitus. Eyes: Negative for blurred vision, discharge, double vision, pain, photophobia, redness, vision loss in left eye, vision loss in right eye, visual disturbance and visual halos. Cardiovascular: Positive for irregular heartbeat. Negative for chest pain, claudication, cyanosis, dyspnea on exertion, leg swelling, near-syncope, orthopnea, palpitations, paroxysmal nocturnal dyspnea and syncope. Respiratory: Negative. Negative for cough, hemoptysis, shortness of breath, sleep disturbances due to breathing, snoring, sputum production and wheezing. Endocrine: Negative for cold intolerance, heat intolerance, polydipsia, polyphagia and polyuria. Hematologic/Lymphatic: Negative for adenopathy and bleeding problem. Does not bruise/bleed easily. Skin: Negative. Negative for color change, dry skin, flushing, itching, nail changes, poor wound healing, rash, skin cancer, suspicious lesions and unusual hair distribution. Musculoskeletal: Positive for arthritis, back pain and neck pain. Negative for falls, gout, joint pain, joint swelling, muscle cramps, muscle weakness, myalgias and stiffness. Gastrointestinal: Positive for heartburn. Negative for bloating, abdominal pain, anorexia, change in bowel habit, bowel incontinence, constipation, diarrhea, dysphagia, excessive appetite, flatus, hematemesis, hematochezia, hemorrhoids, jaundice, melena, nausea and vomiting. Genitourinary: Negative for bladder incontinence, decreased libido, dysuria, flank pain, frequency, genital sores, hematuria, hesitancy, incomplete emptying, menorrhagia, missed menses, nocturia, non-menstrual bleeding, pelvic pain and urgency. Neurological: Positive for headaches. Negative for aphonia, brief paralysis, difficulty with concentration, disturbances in coordination, excessive daytime sleepiness, dizziness, focal weakness, light-headedness, loss of balance, numbness, paresthesias, seizures, sensory change, tremors, vertigo and weakness. Psychiatric/Behavioral: Positive for depression. Negative for altered mental status, hallucinations, hypervigilance, memory loss, substance abuse, suicidal ideas and thoughts of violence. The patient is nervous/anxious. The patient does not have insomnia. Allergic/Immunologic: Negative for environmental allergies, HIV exposure, hives and persistent infections. Vitals: 03/13/22 1346 03/13/22 1433 BP: 136/76 Pulse: 60 Resp: 16 Temp: 98.7 F (37.1 C) SpO2: 96% Weight: 77.9 kg (171 lb 10.1 oz) 77.9 kg (171 lb 10.1 oz) Height: 5' 6 5' 6 Physical Exam Vitals and nursing note reviewed. Constitutional: General: He is not in acute distress. Appearance: He is well-developed and well-nourished. He is not diaphoretic. HENT: Head: Normocephalic. Right Ear: External ear normal. Left Ear: External ear normal. Nose: Nose normal. Mouth/Throat: Mouth: Oropharynx is clear and moist. Pharynx: No oropharyngeal exudate. Eyes: General: Right eye: No discharge. Left eye: No discharge. Extraocular Movements: EOM normal. Conjunctiva/sclera: Conjunctivae normal. Pupils: Pupils are equal, round, and reactive to light. Neck: Thyroid: No thyromegaly. Vascular: No JVD. Trachea: No tracheal deviation. Cardiovascular: Rate and Rhythm: Normal rate and regular rhythm. Pulses: Intact distal pulses. Heart sounds: Normal heart sounds. No murmur heard. No friction rub. No gallop. Pulmonary: Effort: Pulmonary effort is normal. No respiratory distress. Breath sounds: Normal breath sounds. No stridor. No wheezing or rales. Chest: Chest wall: No tenderness. Abdominal: General: Bowel sounds are normal. There is no distension. Palpations: Abdomen is soft. There is no mass. Tenderness: There is no abdominal tenderness. There is no guarding or rebound. Hernia: No hernia is present. Musculoskeletal: General: No tenderness or edema. Normal range of motion. Cervical back: Normal range of motion and neck supple. Lymphadenopathy: Cervical: No cervical adenopathy. Skin: General: Skin is warm and dry. Coloration: Skin is not pale. Findings: No erythema or rash. Neurological: Mental Status: He is alert and oriented to person, place, and time. Cranial Nerves: No cranial nerve deficit. Motor: No abnormal muscle tone. Coordination: Coordination normal. Deep Tendon Reflexes: Reflexes are normal and symmetric. Reflexes normal. Psychiatric: Mood and Affect: Mood and affect normal. Behavior: Behavior normal. Thought Content: Thought content normal. Judgment: Judgment normal. Sanchez Washington DO documented in this encounter [facility] 03-13-2022 History and physical note Delmi Berger 1950 Encounter Diagnoses Name Primary? Pre-op examination Yes Benign neoplasm of brain, unspecified brain region (HCC) Coronary artery disease involving t[place] coronary artery of [place] heart without angina pectoris Primary hypertension Hyperlipidemia, unspecified hyperlipidemia type Procedure: [facility] Dr. [facility] PCP: Sherwin Nichols MD Cardiology: Dr. Resendiz Date of Procedure: 03/20/22 ASSESSMENT ON PREOPERATIVE HISTORY AND PHYSICAL EXAMINATION. DATE OF SERVICE Is 03/13/2022. Assessment: 1.Left brain mass. 2.Coronary artery disease. 3.History of myocardial infarction in 2000. 4.History of placement of approximately 10 prior coronary stents. 5.Asymptomatic sinus bradycardia. 6.Premature atrial complexes. 7.Right bundle branch block. 8.Hypertension. 9.Hyperlipidemia. 10.Depression. 11.Generalized anxiety disorder. 12.Gastroesophageal reflux disease. 13.History of temporomandibular syndrome. 14.Cervical degenerative disk disease. 15.Lumbar degenerative disk disease. 16.Osteoarthritis. 17.Possible insulin resistance based on review of previous labs. 18.Previous tobacco use. 19.Family history significant for dementia, Alzheimer's disease, rectal cancer, coronary disease, and diabetes. 1. ASA = 3 . 2. RCRI = 2 . (Score/Risk of Major Cardiac Outcomes - 0/0.4%, 1/0.9%, 2/2.4%, 3 or more/>5.4%. This may overestimate the cardiac risks in lower risk procedures and underestimate the risks in vascular procedures. This study has been externally validated.) 3. Caprini Score = 7 . (Score/Risk of Symptomatic VTE = 0/<0.5%, 1-2/1.5%, 3-4/3.0%, 5 or greater/6% or greater). 4. Apfel Score = 2 . (Score/Risk of PONV = 0/10%, 1/21%, 2/39%, 3/61%, 4/79%) This score has been externally validated. 1. The patient is at increased risk for postoperative delirium. Plan: 1. We will verify with the patient's blind teacher, the patient's cardiac acceptability for the patient's planned procedure. 2. Endocarditis prophylaxis is not required per 2017 ACC/AHA Guidelines and Recommendations. 3. Avoid/limit perioperative hypothermia. 4. Perioperative thromboembolic prophylaxis is recommended per the 2019 [place] [employer]emat[employer] Guidelines for Management of VTE: Prevention of VTE in Surgical Hospitalized Patients (or 2019 ACCP Guidelines and Recommendations, or 2011 AAOS Guidelines for orthopedic procedures, or 2009 CHARIS Guidelines for neurosurgical procedures). 5. The patient s head of the bed should be elevated to 30 degrees post-operatively unless contraindicated by the procedure. 6. Recommendations regarding preoperative management of the patient's antiplatelet therapy, anticoagulation therapy, and/or NSAID's will be deferred to the neurosurgical service per current protocol. 7. The patient may use appropriate amounts of acetaminophen pre-operatively for pain management if not allergic and if no history of liver disease. 8. The patient was advised to follow the current [facility] guidelines regarding fluid intake after midnight and to take any recommended medications on the morning of surgery with a sip of water. 9. Ordered laboratory tests will be reviewed pre-operatively and any pertinent abnormalities needing to be addressed will be communicated through Quick Notes. 10. Post-operative spirometry/volurex, deep breathing maneuvers, and early ambulation is recommended if not contraindicated by the procedure. 11. This report will be made available to the requesting surgeon through the electronic medical records. 1. The patient is currently on a scheduled beta-mary, which should be continued perioperatively per 2017 ACC Guidelines and Recommendations. 1. The patient was advised to refrain from taking their CLEMENTE inhibitors or ARB's within 24 hours of surgery per [facility] Anesthesia recommendations. 1. The patient's glucose can be monitored perioperatively with accu-checks and treated with basal insulin plus bolus corrective insulin therapy to maintain a glucose between 140 and 180 (per 2019 ADA guidelines) if needed. 1. For patient's 65 or older consider incorporating the 2016 ACS/AGS Guidelines for Optimal Perioperative Management of the Geriatric Patient. -consider avoiding/limiting the use of opioids, benzodiazepines, antihistamines, and anticholinergics -consider opioid sparing multimodal pain management -consider delirium identification/prevention measures (daily CAM Short Form) -consider fall precautions (Naranjo Fall Scale) -consider nutritional support (ESPEN Guidelines) -consider pressure ulcer prevention (Thad Score) -consider functional decline identification and prevention measures .2. Perioperative nebulizers can be used as needed. PREOPERATIVE HISTORY AND PHYSICAL EXAMINATION DATE OF SERVICE March 13, 2022. HISTORY OF PRESENT ILLNESS Mr. Berger is a pleasant 71-year-old white male with multiple medical problems, who presents today for preoperative consultation, risk stratification at the request of Dr. Peggy Jones for a planned left craniotomy for tumor resection with [facility] on March 20, 2022. The patient reports he does have a history of coronary artery disease and describes having a myocardial infarction in 2000. The patient states he has undergone placement of as many as 10 coronary stents in the past. The patient reports he underwent placement of 2 coronary stents in the fall of 2020. The patient does state this was performed through [facility]. The patient does follow with Dr. Resendiz at the [facility] for his cardiac issues. We will reach out to Dr. Resendiz to verify the patient's cardiac acceptability for the patient's upcoming procedure. The patient is noted to be on dual anti-platelet therapy currently. Given the nature of the patient's planned surgery, he may benefit by discontinuation of his anti-platelet therapy 7 to 10 days preoperatively. The patient does have a history of hypertension and hyperlipidemia, which he believes to be adequately controlled on his current regimen. The patient is noted to be on a beta blocking agent currently. The patient does not report a history of diabetes; however, when reviewing the patient's [facility] medical records, the patient does demonstrate slight elevations in his glucose levels. The patient may benefit by having his glucose monitored perioperatively and treated with corrective insulin therapy as felt to be necessary. The patient denies a history of renal insufficiency, cerebrovascular disease, peripheral vascular or valvular heart disease. The patient states he is not known to snore excessively when he sleeps and does not necessarily appear to be at risk for sleep apnea based on his statements today. The patient does not have a history of fatty liver disease. The patient has undergone several surgeries in the past, all of which were uneventful from a cardiac and anesthesia standpoint. The patient reports he does exercise at his local [facility] and states he is able to walk up 2 flights of stairs. At a described functional capacity of 4 METs, the patient has no active cardiac symptoms such as chest pain, atypical chest pain, palpitations, syncope, near syncope, orthopnea, PND, lower extremity edema, claudication, dyspnea on exertion, or shortness of breath. The patient's EKG today (per my interpretation) demonstrates sinus bradycardia with premature atrial complexes and a right bundle branch block. The patient states he did smoke up until 1987. The patient does not believe he has COPD or emphysema associated with his tobacco use. The patient's lung exam is clear today with a room air pulse oximeter of 96%. The patient does have cardiac disease in his family history. The patient denies any personal or family history significant for bleeding diathesis or thromboembolic disease. The patient has no acute complaints currently. Allergies Allergen Reactions Atorvastatin Other (See Comments) Chest pain Penicillins Itching Active Home Medications Medication Sig Take Last Dose On Take Morning of Surgery Comment(s) amLODIPine (NORVASC) 10 MG tablet Take 1 (one) tablet (10 mg total) by mouth every morning . ascorbic acid, vitamin C, (vitamin C) 1000 MG tablet Take 1 (one) tablet (1,000 mg total) by mouth every morning . aspirin 81 mg chewable tablet Chew and Swallow 1 (one) tablet (81 mg total) every morning . cholecalciferol, vitamin D3, 50 mcg (2,000 unit) Tab Take 1 (one) tablet (2,000 Units total) by mouth every morning . clopidogreL (PLAVIX) 75 mg tablet Take 1 (one) tablet (75 mg total) by mouth every morning . cyanocobalamin (B-12) 1000 MCG tablet Take 1 (one) tablet (1,000 mcg total) by mouth every morning . escitalopram oxalate (LEXAPRO) 10 MG tablet Take 1 (one) tablet (10 mg total) by mouth every morning . evolocumab 140 mg/mL Syrg Inject 1 mL (140 mg total) under the skin every 14 (fourteen) days . lisinopril (PRINIVIL,ZESTRIL) 10 MG tablet Take 1 (one) tablet (10 mg total) by mouth every morning . magnesium oxide (MAG-OX) 400 mg (241.3 mg magnesium) tablet Take 1 (one) tablet (400 mg total) by mouth every morning . metoprolol succinate (TOPROL-XL) 25 MG 24 hr tablet Take 1 (one) tablet (25 mg total) by mouth every morning . NONFORMULARY Take 1 tablet by mouth every morning Ceralin Forte . ubidecarenone/vitamin E mixed (COQ10 SG 100 ORAL) Take 1 tablet by mouth every morning . zinc 50 mg Tab Take 1 (one) tablet (50 mg total) by mouth every morning . Past Medical History: Diagnosis Date Anxiety Arrhythmia Arthritis Back pain CAD (coronary artery disease) s/p approx 10 stents thru 11/2020 Cerebral cyst L hemisphere; has previously followed with Dr. Jones Cervical spine pain 2013 MRI cervical spine showed some right-sided neuroforaminal stenosis C3-4 and C4-5. Previously evaluated by Dr. Peggy Jones (neurosurgery) and treated conservatively with PT. Modest symptoms as of 2017 Episodic lightheadedness 2004 especially exposed to heat & exertion; dizziness/ lightheadedness GERD (gastroesophageal reflux disease) Headache, tension-type 03/13/22: Resolved per pt. History of cardiac cath HLD (hyperlipidemia) HTN (hypertension) [place] (myocardial infarction) (HCC) october 2000 TMJ (temporomandibular joint disorder) symptoms resolved with mouth guard - treated by dentist Past Surgical History: Procedure Laterality Date ANKLE FRACTURE SURGERY Right APPENDECTOMY CARDIAC CATHETERIZATION numerous COLONOSCOPY N/A 07/20/2018 Procedure: COLONOSCOPY; Surgeon: Enrrique Arias MD; Location: [facility] [place] OR; Service: General Surgery CORONARY STENT PLACEMENT [facility] has about 10 stents - most recent 11/2020 at [facility] ESOPHAGOGASTRODUODENOSCOPY many years ago HARDWARE REMOVAL ANKLE Right NASAL SINUS SURGERY 2012 , Yanira Negro MD surgeon REPAIR HERNIA INGUINAL ROBOTIC XI Right 02/11/2019 Procedure: REPAIR HERNIA INGUINAL ROBOTIC XI; Surgeon: Enrrique Arias MD; Location: [facility] OR; Service: Gen-Robotics Social History Socioeconomic History Marital status: Number of children: 1 Tobacco Use Smoking status: Former Packs/day: 0.25 Years: 5.00 Pack years: 1.25 Types: Cigarettes Quit date: 03/02/1987 Years since quittin.0 Smokeless tobacco: Never Vaping Use Vaping Use: Never used Substance and Sexual Activity Alcohol use: No Drug use: No Family History Problem Relation Age of Onset Dementia Mother Alzheimer's disease Mother Rectal cancer Father Heart disease Brother Heart disease Maternal Uncle Diabetes Maternal Uncle Review of Systems Constitutional: Negative for chills, decreased appetite, diaphoresis, fever, malaise/fatigue, night sweats, weight gain and weight loss. HENT: Negative. Negative for congestion, ear discharge, ear pain, hearing loss, hoarse voice, nosebleeds, odynophagia, sore throat, stridor and tinnitus. Eyes: Negative for blurred vision, discharge, double vision, pain, photophobia, redness, vision loss in left eye, vision loss in right eye, visual disturbance and visual halos. Cardiovascular: Positive for irregular heartbeat. Negative for chest pain, claudication, cyanosis, dyspnea on exertion, leg swelling, near-syncope, orthopnea, palpitations, paroxysmal nocturnal dyspnea and syncope. Respiratory: Negative. Negative for cough, hemoptysis, shortness of breath, sleep disturbances due to breathing, snoring, sputum production and wheezing. Endocrine: Negative for cold intolerance, heat intolerance, polydipsia, polyphagia and polyuria. Hematologic/Lymphatic: Negative for adenopathy and bleeding problem. Does not bruise/bleed easily. Skin: Negative. Negative for color change, dry skin, flushing, itching, nail changes, poor wound healing, rash, skin cancer, suspicious lesions and unusual hair distribution. Musculoskeletal: Positive for arthritis, back pain and neck pain. Negative for falls, gout, joint pain, joint swelling, muscle cramps, muscle weakness, myalgias and stiffness. Gastrointestinal: Positive for heartburn. Negative for bloating, abdominal pain, anorexia, change in bowel habit, bowel incontinence, constipation, diarrhea, dysphagia, excessive appetite, flatus, hematemesis, hematochezia, hemorrhoids, jaundice, melena, nausea and vomiting. Genitourinary: Negative for bladder incontinence, decreased libido, dysuria, flank pain, frequency, genital sores, hematuria, hesitancy, incomplete emptying, menorrhagia, missed menses, nocturia, non-menstrual bleeding, pelvic pain and urgency. Neurological: Positive for headaches. Negative for aphonia, brief paralysis, difficulty with concentration, disturbances in coordination, excessive daytime sleepiness, dizziness, focal weakness, light-headedness, loss of balance, numbness, paresthesias, seizures, sensory change, tremors, vertigo and weakness. Psychiatric/Behavioral: Positive for depression. Negative for altered mental status, hallucinations, hypervigilance, memory loss, substance abuse, suicidal ideas and thoughts of violence. The patient is nervous/anxious. The patient does not have insomnia. Allergic/Immunologic: Negative for environmental allergies, HIV exposure, hives and persistent infections. Vitals: 03/13/22 1346 03/13/22 1433 BP: 136/76 Pulse: 60 Resp: 16 Temp: 98.7 F (37.1 C) SpO2: 96% Weight: 77.9 kg (171 lb 10.1 oz) 77.9 kg (171 lb 10.1 oz) Height: 5' 6 5' 6 Physical Exam Vitals and nursing note reviewed. Constitutional: General: He is not in acute distress. Appearance: He is well-developed and well-nourished. He is not diaphoretic. HENT: Head: Normocephalic. Right Ear: External ear normal. Left Ear: External ear normal. Nose: Nose normal. Mouth/Throat: Mouth: Oropharynx is clear and moist. Pharynx: No oropharyngeal exudate. Eyes: General: Right eye: No discharge. Left eye: No discharge. Extraocular Movements: EOM normal. Conjunctiva/sclera: Conjunctivae normal. Pupils: Pupils are equal, round, and reactive to light. Neck: Thyroid: No thyromegaly. Vascular: No JVD. Trachea: No tracheal deviation. Cardiovascular: Rate and Rhythm: Normal rate and regular rhythm. Pulses: Intact distal pulses. Heart sounds: Normal heart sounds. No murmur heard. No friction rub. No gallop. Pulmonary: Effort: Pulmonary effort is normal. No respiratory distress. Breath sounds: Normal breath sounds. No stridor. No wheezing or rales. Chest: Chest wall: No tenderness. Abdominal: General: Bowel sounds are normal. There is no distension. Palpations: Abdomen is soft. There is no mass. Tenderness: There is no abdominal tenderness. There is no guarding or rebound. Hernia: No hernia is present. Musculoskeletal: General: No tenderness or edema. Normal range of motion. Cervical back: Normal range of motion and neck supple. Lymphadenopathy: Cervical: No cervical adenopathy. Skin: General: Skin is warm and dry. Coloration: Skin is not pale. Findings: No erythema or rash. Neurological: Mental Status: He is alert and oriented to person, place, and time. Cranial Nerves: No cranial nerve deficit. Motor: No abnormal muscle tone. Coordination: Coordination normal. Deep Tendon Reflexes: Reflexes are normal and symmetric. Reflexes normal. Psychiatric: Mood and Affect: Mood and affect normal. Behavior: Behavior normal. Thought Content: Thought content normal. Judgment: Judgment normal. Sanchez Washington DO documented in this encounter [facility] 03-13-2022 Note Formatting of this n ote might be different from the original. Please verify with the patient's blind teacher, the patient's cardiac acceptability for the patient's planned procedure. Thank you. [facility] 03-13-2022 Note Formatting of this n ote might be different from the original. Please verify with the patient's blind teacher, the patient's cardiac acceptability for the patient's planned procedure. Thank you. [facility] 03-13-2022 Note Formatting of this n ote might be different from the original. Please verify with the patient's blind teacher, the patient's cardiac acceptability for the patient's planned procedure. Thank you. [facility] 03-13-2022 Note Formatting of this n ote might be different from the original. Please verify with the patient's blind teacher, the patient's cardiac acceptability for the patient's planned procedure. Thank you. [facility] 03-13-2022 Note Formatting of this n ote might be different from the original. Please verify with the patient's blind teacher, the patient's cardiac acceptability for the patient's planned procedure. Thank you. [facility] 03-13-2022 Note Formatting of this n ote might be different from the original. Please verify with the patient's blind teacher, the patient's cardiac acceptability for the patient's planned procedure. Thank you. [facility] 03-13-2022 Instructions Sanchez Washington DO - 03/13/2022 2:59 PM EST Preoperative Medication Instructions In preparation for surgery please continue all of your current medications with the following changes: It is very important to follow these medication recommendations in order to prevent or limit potential adverse reactions associated with certain medications around the time of your surgery. If you are not able to follow the recommendations for any reason, including due to the timing of your procedure, please notify your surgeon. Active Home Medications Medication Sig Take Last Dose On Take Morning of Surgery Comment(s) amLODIPine (NORVASC) 10 MG tablet Take 1 (one) tablet (10 mg total) by mouth every morning . yes ascorbic acid, vitamin C, (vitamin C) 1000 MG tablet Take 1 (one) tablet (1,000 mg total) by mouth every morning . 03/09/22 aspirin 81 mg chewable tablet Chew and Swallow 1 (one) tablet (81 mg total) every morning . 03/09/22 cholecalciferol, vitamin D3, 50 mcg (2,000 unit) Tab Take 1 (one) tablet (2,000 Units total) by mouth every morning . 03/09/22 clopidogreL (PLAVIX) 75 mg tablet Take 1 (one) tablet (75 mg total) by mouth every morning . 03/09/22 cyanocobalamin (B-12) 1000 MCG tablet Take 1 (one) tablet (1,000 mcg total) by mouth every morning . 03/09/22 escitalopram oxalate (LEXAPRO) 10 MG tablet Take 1 (one) tablet (10 mg total) by mouth every morning . yes evolocumab 140 mg/mL Syrg Inject 1 mL (140 mg total) under the skin every 14 (fourteen) days . Please follow your current prescriber's instructions with regard to perioperative use of this medication. lisinopril (PRINIVIL,ZESTRIL) 10 MG tablet Take 1 (one) tablet (10 mg total) by mouth every morning . no magnesium oxide (MAG-OX) 400 mg (241.3 mg magnesium) tablet Take 1 (one) tablet (400 mg total) by mouth every morning . 03/09/22 metoprolol succinate (TOPROL-XL) 25 MG 24 hr tablet Take 1 (one) tablet (25 mg total) by mouth every morning . yes NONFORMULARY Take 1 tablet by mouth every morning Ceralin Forte . 03/09/22 ubidecarenone/vitamin E mixed (COQ10 SG 100 ORAL) Take 1 tablet by mouth every morning . 03/09/22 zinc 50 mg Tab Take 1 (one) tablet (50 mg total) by mouth every morning . 03/09/22 STOP Aspirin (and medications that contain aspirin, such as Ceci Trimble, Pepto-Bismol, Anacin), antiinflammatory medications such as Advil, Motrin, Ibuprofen, Naproxen, Aleve, Ceci Trimble, Pepto-Bismol, Anacin, Diclofenac, Voltaren, Daypro, Etodolac, Ketoprofen, Meloxicam, Piroxicam, Relafen, Nabumetone, etc. Also discontinue Vitamin C, Vitamin E, [place]-3 Fatty Acid, Fish Oil or Lovaza, as well as all herbal medications and supplements. Take last dose on 03/09/2022. Tylenol (acetaminophen) is acceptable, but be careful to follow the label directions. On the morning of surgery, with a small amount of water, take ONLY the medications listed above in the column Take the morning of surgery. If you are using Eye Drops or Inhalers, please bring them to the hospital. If you have sleep apnea and have a CPAP/BIPAP device, please bring it with you on the day of surgery. documented in this encounter [facility] 03-13-2022 Instructions Sanchez Washington DO - 03/13/2022 2:59 PM EST Preoperative Medication Instructions In preparation for surgery please continue all of your current medications with the following changes: It is very important to follow these medication recommendations in order to prevent or limit potential adverse reactions associated with certain medications around the time of your surgery. If you are not able to follow the recommendations for any reason, including due to the timing of your procedure, please notify your surgeon. Active Home Medications Medication Sig Take Last Dose On Take Morning of Surgery Comment(s) amLODIPine (NORVASC) 10 MG tablet Take 1 (one) tablet (10 mg total) by mouth every morning . yes ascorbic acid, vitamin C, (vitamin C) 1000 MG tablet Take 1 (one) tablet (1,000 mg total) by mouth every morning . 03/09/22 aspirin 81 mg chewable tablet Chew and Swallow 1 (one) tablet (81 mg total) every morning . 03/09/22 cholecalciferol, vitamin D3, 50 mcg (2,000 unit) Tab Take 1 (one) tablet (2,000 Units total) by mouth every morning . 03/09/22 clopidogreL (PLAVIX) 75 mg tablet Take 1 (one) tablet (75 mg total) by mouth every morning . 03/09/22 cyanocobalamin (B-12) 1000 MCG tablet Take 1 (one) tablet (1,000 mcg total) by mouth every morning . 03/09/22 escitalopram oxalate (LEXAPRO) 10 MG tablet Take 1 (one) tablet (10 mg total) by mouth every morning . yes evolocumab 140 mg/mL Syrg Inject 1 mL (140 mg total) under the skin every 14 (fourteen) days . Please follow your current prescriber's instructions with regard to perioperative use of this medication. lisinopril (PRINIVIL,ZESTRIL) 10 MG tablet Take 1 (one) tablet (10 mg total) by mouth every morning . no magnesium oxide (MAG-OX) 400 mg (241.3 mg magnesium) tablet Take 1 (one) tablet (400 mg total) by mouth every morning . 03/09/22 metoprolol succinate (TOPROL-XL) 25 MG 24 hr tablet Take 1 (one) tablet (25 mg total) by mouth every morning . yes NONFORMULARY Take 1 tablet by mouth every morning Ceralin Forte . 03/09/22 ubidecarenone/vitamin E mixed (COQ10 SG 100 ORAL) Take 1 tablet by mouth every morning . 03/09/22 zinc 50 mg Tab Take 1 (one) tablet (50 mg total) by mouth every morning . 03/09/22 STOP Aspirin (and medications that contain aspirin, such as Ceci Trimble, Pepto-Bismol, Anacin), antiinflammatory medications such as Advil, Motrin, Ibuprofen, Naproxen, Aleve, Ceci Trimble, Pepto-Bismol, Anacin, Diclofenac, Voltaren, Daypro, Etodolac, Ketoprofen, Meloxicam, Piroxicam, Relafen, Nabumetone, etc. Also discontinue Vitamin C, Vitamin E, Dallas-3 Fatty Acid, Fish Oil or Lovaza, as well as all herbal medications and supplements. Take last dose on 03/09/2022. Tylenol (acetaminophen) is acceptable, but be careful to follow the label directions. On the morning of surgery, with a small amount of water, take ONLY the medications listed above in the column Take the morning of surgery. If you are using Eye Drops or Inhalers, please bring them to the hospital. If you have sleep apnea and have a CPAP/BIPAP device, please bring it with you on the day of surgery. documented in this encounter [facility] 03-13-2022 Instructions Sanchez Washington DO - 03/13/2022 2:59 PM EST Preoperative Medication Instructions In preparation for surgery please continue all of your current medications with the following changes: It is very important to follow these medication recommendations in order to prevent or limit potential adverse reactions associated with certain medications around the time of your surgery. If you are not able to follow the recommendations for any reason, including due to the timing of your procedure, please notify your surgeon. Active Home Medications Medication Sig Take Last Dose On Take Morning of Surgery Comment(s) amLODIPine (NORVASC) 10 MG tablet Take 1 (one) tablet (10 mg total) by mouth every morning . yes ascorbic acid, vitamin C, (vitamin C) 1000 MG tablet Take 1 (one) tablet (1,000 mg total) by mouth every morning . 03/09/22 aspirin 81 mg chewable tablet Chew and Swallow 1 (one) tablet (81 mg total) every morning . 03/09/22 cholecalciferol, vitamin D3, 50 mcg (2,000 unit) Tab Take 1 (one) tablet (2,000 Units total) by mouth every morning . 03/09/22 clopidogreL (PLAVIX) 75 mg tablet Take 1 (one) tablet (75 mg total) by mouth every morning . 03/09/22 cyanocobalamin (B-12) 1000 MCG tablet Take 1 (one) tablet (1,000 mcg total) by mouth every morning . 03/09/22 escitalopram oxalate (LEXAPRO) 10 MG tablet Take 1 (one) tablet (10 mg total) by mouth every morning . yes evolocumab 140 mg/mL Syrg Inject 1 mL (140 mg total) under the skin every 14 (fourteen) days . Please follow your current prescriber's instructions with regard to perioperative use of this medication. lisinopril (PRINIVIL,ZESTRIL) 10 MG tablet Take 1 (one) tablet (10 mg total) by mouth every morning . no magnesium oxide (MAG-OX) 400 mg (241.3 mg magnesium) tablet Take 1 (one) tablet (400 mg total) by mouth every morning . 03/09/22 metoprolol succinate (TOPROL-XL) 25 MG 24 hr tablet Take 1 (one) tablet (25 mg total) by mouth every morning . yes NONFORMULARY Take 1 tablet by mouth every morning Ceralin Forte . 03/09/22 ubidecarenone/vitamin E mixed (COQ10 SG 100 ORAL) Take 1 tablet by mouth every morning . 03/09/22 zinc 50 mg Tab Take 1 (one) tablet (50 mg total) by mouth every morning . 03/09/22 STOP Aspirin (and medications that contain aspirin, such as Ceci Trimble, Pepto-Bismol, Anacin), antiinflammatory medications such as Advil, Motrin, Ibuprofen, Naproxen, Aleve, Ceci Trimble, Pepto-Bismol, Anacin, Diclofenac, Voltaren, Daypro, Etodolac, Ketoprofen, Meloxicam, Piroxicam, Relafen, Nabumetone, etc. Also discontinue Vitamin C, Vitamin E, Dallas-3 Fatty Acid, Fish Oil or Lovaza, as well as all herbal medications and supplements. Take last dose on 03/09/2022. Tylenol (acetaminophen) is acceptable, but be careful to follow the label directions. On the morning of surgery, with a small amount of water, take ONLY the medications listed above in the column Take the morning of surgery. If you are using Eye Drops or Inhalers, please bring them to the hospital. If you have sleep apnea and have a CPAP/BIPAP device, please bring it with you on the day of surgery. documented in this encounter [facility] 03-13-2022 Note Formatting of this n ote might be different from the original. Patient Instructions for [facility] Prior to surgery: Please contact your Surgeon's office for the scheduled time of your surgery. Report to the Surgery Family Waiting Area in the [facility] 2 hours prior to your surgery. You may park in the [facility] of [facility] - a voucher for parking will be provided to you. One family member may accompany you back into the Pre-Op Area. If your surgeon has given you special guidelines for eating and drinking prior to surgery, follow their instructions. If not, the evening before surgery you may eat a low-fat meal up until midnight. Do not eat anything, including gum, cough drops, hard candy or mints after midnight. Do not smoke, chew tobacco or drink alcohol for 24 hours before surgery. Please take any medications you have been instructed to take the morning of your surgery with small sips of water. Please be sure to wear comfortable, appropriate clothing. Please remove all jewelry and piercings, including wedding rings. RINGS WILL BE CUT OFF IF UNABLE TO REMOVE. Leave all valuable items at home. Shower using Dial soap or as advised by your Surgeon's office. Do not apply any makeup or lotions. Gel or acrylic nails must be removed from both fingers. Remove all nail american/product for surgeries involving extremities. Please remember to bring both your insurance card and a photo ID with you on the day of your surgery. After your surgery: If you are having outpatient surgery - you must have a licensed fire truck driver take you home. The expectation is that this fire truck driver will remain at the hospital for the duration of your procedure. You are advised to have a family member with you for at least 24 hours after being under Anesthesia. [facility] 03-13-2022 Note Formatting of this n ote might be different from the original. Patient Instructions for [facility] Prior to surgery: Please contact your Surgeon's office for the scheduled time of your surgery. Report to the Surgery Family Waiting Area in the [facility] 2 hours prior to your surgery. You may park in the [facility] of [facility] - a voucher for parking will be provided to you. One family member may accompany you back into the Pre-Op Area. If your surgeon has given you special guidelines for eating and drinking prior to surgery, follow their instructions. If not, the evening before surgery you may eat a low-fat meal up until midnight. Do not eat anything, including gum, cough drops, hard candy or mints after midnight. Do not smoke, chew tobacco or drink alcohol for 24 hours before surgery. Please take any medications you have been instructed to take the morning of your surgery with small sips of water. Please be sure to wear comfortable, appropriate clothing. Please remove all jewelry and piercings, including wedding rings. RINGS WILL BE CUT OFF IF UNABLE TO REMOVE. Leave all valuable items at home. Shower using Dial soap or as advised by your Surgeon's office. Do not apply any makeup or lotions. Gel or acrylic nails must be removed from both fingers. Remove all nail american/product for surgeries involving extremities. Please remember to bring both your insurance card and a photo ID with you on the day of your surgery. After your surgery: If you are having outpatient surgery - you must have a licensed fire truck driver take you home. The expectation is that this fire truck driver will remain at the hospital for the duration of your procedure. You are advised to have a family member with you for at least 24 hours after being under Anesthesia. [facility] 03-13-2022 Note Formatting of this n ote might be different from the original. Patient Instructions for [facility] Prior to surgery: Please contact your Surgeon's office for the scheduled time of your surgery. Report to the Surgery Family Waiting Area in the [facility] 2 hours prior to your surgery. You may park in the [facility] of [facility] - a voucher for parking will be provided to you. One family member may accompany you back into the Pre-Op Area. If your surgeon has given you special guidelines for eating and drinking prior to surgery, follow their instructions. If not, the evening before surgery you may eat a low-fat meal up until midnight. Do not eat anything, including gum, cough drops, hard candy or mints after midnight. Do not smoke, chew tobacco or drink alcohol for 24 hours before surgery. Please take any medications you have been instructed to take the morning of your surgery with small sips of water. Please be sure to wear comfortable, appropriate clothing. Please remove all jewelry and piercings, including wedding rings. RINGS WILL BE CUT OFF IF UNABLE TO REMOVE. Leave all valuable items at home. Shower using Dial soap or as advised by your Surgeon's office. Do not apply any makeup or lotions. Gel or acrylic nails must be removed from both fingers. Remove all nail american/product for surgeries involving extremities. Please remember to bring both your insurance card and a photo ID with you on the day of your surgery. After your surgery: If you are having outpatient surgery - you must have a licensed fire truck driver take you home. The expectation is that this fire truck driver will remain at the hospital for the duration of your procedure. You are advised to have a family member with you for at least 24 hours after being under Anesthesia. [facility] 03-13-2022 Note Formatting of this n ote might be different from the original. Patient Instructions for [facility] Prior to surgery: Please contact your Surgeon's office for the scheduled time of your surgery. Report to the Surgery Family Waiting Area in the [facility] 2 hours prior to your surgery. You may park in the [facility] of [facility] - a voucher for parking will be provided to you. One family member may accompany you back into the Pre-Op Area. If your surgeon has given you special guidelines for eating and drinking prior to surgery, follow their instructions. If not, the evening before surgery you may eat a low-fat meal up until midnight. Do not eat anything, including gum, cough drops, hard candy or mints after midnight. Do not smoke, chew tobacco or drink alcohol for 24 hours before surgery. Please take any medications you have been instructed to take the morning of your surgery with small sips of water. Please be sure to wear comfortable, appropriate clothing. Please remove all jewelry and piercings, including wedding rings. RINGS WILL BE CUT OFF IF UNABLE TO REMOVE. Leave all valuable items at home. Shower using Dial soap or as advised by your Surgeon's office. Do not apply any makeup or lotions. Gel or acrylic nails must be removed from both fingers. Remove all nail american/product for surgeries involving extremities. Please remember to bring both your insurance card and a photo ID with you on the day of your surgery. After your surgery: If you are having outpatient surgery - you must have a licensed fire truck driver take you home. The expectation is that this fire truck driver will remain at the hospital for the duration of your procedure. You are advised to have a family member with you for at least 24 hours after being under Anesthesia. [facility] 03-13-2022 Note Formatting of this n ote might be different from the original. Patient Instructions for [facility] Prior to surgery: Please contact your Surgeon's office for the scheduled time of your surgery. Report to the Surgery Family Waiting Area in the [facility] 2 hours prior to your surgery. You may park in the [facility] of [facility] - a voucher for parking will be provided to you. One family member may accompany you back into the Pre-Op Area. If your surgeon has given you special guidelines for eating and drinking prior to surgery, follow their instructions. If not, the evening before surgery you may eat a low-fat meal up until midnight. Do not eat anything, including gum, cough drops, hard candy or mints after midnight. Do not smoke, chew tobacco or drink alcohol for 24 hours before surgery. Please take any medications you have been instructed to take the morning of your surgery with small sips of water. Please be sure to wear comfortable, appropriate clothing. Please remove all jewelry and piercings, including wedding rings. RINGS WILL BE CUT OFF IF UNABLE TO REMOVE. Leave all valuable items at home. Shower using Dial soap or as advised by your Surgeon's office. Do not apply any makeup or lotions. Gel or acrylic nails must be removed from both fingers. Remove all nail american/product for surgeries involving extremities. Please remember to bring both your insurance card and a photo ID with you on the day of your surgery. After your surgery: If you are having outpatient surgery - you must have a licensed fire truck driver take you home. The expectation is that this fire truck driver will remain at the hospital for the duration of your procedure. You are advised to have a family member with you for at least 24 hours after being under Anesthesia. [facility] 03-13-2022 Note Formatting of this n ote might be different from the original. Patient Instructions for [facility] Prior to surgery: Please contact your Surgeon's office for the scheduled time of your surgery. Report to the Surgery Family Waiting Area in the [facility] 2 hours prior to your surgery. You may park in the [facility] of [facility] - a voucher for parking will be provided to you. One family member may accompany you back into the Pre-Op Area. If your surgeon has given you special guidelines for eating and drinking prior to surgery, follow their instructions. If not, the evening before surgery you may eat a low-fat meal up until midnight. Do not eat anything, including gum, cough drops, hard candy or mints after midnight. Do not smoke, chew tobacco or drink alcohol for 24 hours before surgery. Please take any medications you have been instructed to take the morning of your surgery with small sips of water. Please be sure to wear comfortable, appropriate clothing. Please remove all jewelry and piercings, including wedding rings. RINGS WILL BE CUT OFF IF UNABLE TO REMOVE. Leave all valuable items at home. Shower using Dial soap or as advised by your Surgeon's office. Do not apply any makeup or lotions. Gel or acrylic nails must be removed from both fingers. Remove all nail american/product for surgeries involving extremities. Please remember to bring both your insurance card and a photo ID with you on the day of your surgery. After your surgery: If you are having outpatient surgery - you must have a licensed fire truck driver take you home. The expectation is that this fire truck driver will remain at the hospital for the duration of your procedure. You are advised to have a family member with you for at least 24 hours after being under Anesthesia. [facility] 10-24-2021 History of Present illness Narrative DELMI BERGER [facility] [id number] 1950 DATE STEVIE LLANOS MD [address] [place] [address] Llanos: Thank you very much for sending Mr. Berger for an evaluation of an enlarging left temporoparietal mass/cyst. Mr. Berger has been followed for this lesion, and it has grown and is very large now, approximately 6 x 6.5 x 5 cm. He does have some headache. PAST MEDICAL AND SURGICAL HISTORY Significant for coronary artery disease. MEDICATIONS Lexapro, amlodipine, Plavix, lisinopril, Toprol, Tobias aspirin, Repatha. ALLERGIES He has an allergy to Lipitor and penicillin. PHYSICAL EXAMINATION Shows 5/5 strength in both upper and lower extremities. Deep tendon reflexes and sensation are intact. No pathological reflexes are noted. He denies any bowel, bladder or sexual dysfunction. Cranial nerves 2-12 are intact. He has no drift. He has a negative [id number] test. IMAGING MRI scanning shows a left temporoparietal mass/cystic lesion approximately 6 x 6.5 x 5 cm. DIAGNOSIS Left enlarging temporoparietal mass/cyst. TREATMENT OPTIONS AND PLAN I told Mr. Berger that I would recommend resection of this enlarging lesion. I explained the procedure and the risks, which include, but not limited to bleeding, infection, need for reoperation, intracranial hemorrhage, seizures, stroke, DVT, pulmonary embolism, myocardial infarction, even as well as recurrence of mass. He understood all of this. All of his questions have been answered, and he would like to get scheduled in March. I will keep you posted on this gentleman's progress. Thank you very much. Sincerely, PEGGY JONES MD D 10/23/2021 18:28 [id number] T 10/24/2021 12:05 CLB/MODL cc: SHERWIN NICHOLS MD See Dictation. documented in this encounter [facility] 10-23-2021 History of Present illness Narrative See Dictation. documented in this encounter [facility] 03-12-2021 History of Present illness Narrative Neurology Outpatient Clinic Consult [facility] 03/12/2021 Stevie Llanos MD [address] [facility] [facility] [id number] Patient: Delmi Berger Date of : 1950 (70 y.o. male) Referring Provider: Mary Busby MD PCP: Sherwin Nichols MD ASSESSMENT & PLAN: Spell of change in speech Onset 2003. Brief transient word finding difficulties typically clears out the word he needs after a few seconds. Occurs a few times per week. Somewhat more notable since June 2020. Does NOT have any loss of consciousness, impaired level of consciousness, impaired ability to interact with the environment or convulsion. Should be noted that remotely had some syncopal episodes with variable memory gaps those have long since faded. Does have separate dizziness and lightheadedness episodes such as on standing but the dizziness/lightheadedness does not occur with the word finding difficulties. [address] head imaging shows cerebral cyst unchanged. 03/2021 neurologic examination unrevealing. Ultimately I recommend evaluation for possible simple partial seizure versus age-related slight cognitive difficulties as well as less likely possibility of artery to artery TIA. MRI head compare to previous imaging including CT EEG Carotid ultrasound Labs Cerebral cyst First noted on imaging . L hemisphere cerebral cyst, likely congenital; has previously followed with Dr. Jones. 2018 CT head from [facility] showed that cyst had decreased in size compared to films from 2003. Repeat MRI head Consider referral to Neurosurgery as needed. Orders Placed This Encounter Procedures MR Brain With And Without Contrast CBC and Differential Comprehensive Metabolic Panel Folate Methylmalonic Acid, Blood Vitamin B12 TSH with Reflex Free T4 RPR Magnesium Level Phosphorus EEG (Standard) Ultrasound doppler carotid Requested Prescriptions No prescriptions requested or ordered in this encounter Follow-up: Return for Follow-up after anticipated completion of tests. Answered questions and discussed assessment and plan at length. Instructed patient to contact me promptly with additional concerns. Typical Time Spent: I spent a total of at least 60 minutes [id number] with the patient during this encounter and over half of that time was spent on counseling and coordination of care. DIAGNOSTIC TESTING SUMMARY: (MRI/CT/XR, EEG, EMG, CSF, Cardiac, Labs) I independently reviewed the CT images and agree with the interpretation(s) with the following comments: CT head without contrast 2018 shows cystic mass left extra-axial space which has been seen on studies dating back to 05/19/2003 at [facility]. It is slightly smaller as compared to the study from 05/19/2003 (currently measures 3.5 x 3.3 cm and previously measured 5.2 x 4.6 cm). This could be a neuroenteric cyst, partially calcified arachnoid cyst or epidermoid. Labs 01/08/2021 from [facility] showed CBC with hemoglobin 13.4. Otherwise BMP unremarkable. SUBJECTIVE: Chief Complaint: Word finding difficulty episodes; cerebral cyst History of Present Illness (HPI): Informant(s): Patient Delmi Berger is a 70 y.o. male, with pertinent history of anxiety, CAD status post cardiac stents, chronic left cerebral cyst patient previously followed with Dr. Watkins, HLD, HTN, TMJ. Spell of change in speech Onset 2003. Brief transient word finding difficulties typically clears out the word he needs after a few seconds. Occurs a few times per week. Somewhat more notable since June 2020. Does NOT have any loss of consciousness, impaired level of consciousness, impaired ability to interact with the environment or convulsion. Should be noted that remotely had some syncopal episodes with variable memory gaps those have long since faded. Does have separate dizziness and lightheadedness episodes such as on standing but the dizziness/lightheadedness does not occur with the word finding difficulties. [address] head imaging shows cerebral cyst unchanged. Cerebral cyst First noted on imaging . L hemisphere cerebral cyst, likely congenital; has previously followed with Dr. Jones. 2018 CT head from [facility] showed that cyst had decreased in size compared to films from 2003. Admits that regarding speech problems, he purposely slows down his speech and tends to be following. If he talks fast more likely to happen. Worse with strangers or in crowds. Denies change in vision, other change in speech, weakness, numbness, convulsion. Denies any recent loss of consciousness, spell of memory gap, urinary incontinence, tongue laceration other than occasional accidental biting his tongue while chewing food. Denies history of brain tumor, stroke, meningoencephalitis, seizures as a child, febrile seizures, family history of seizure. Review of Systems: All systems reviewed and negative except pertinent positives and negatives documented in the History of Present Illness (HPI). Past Medical History: Diagnosis Date Anxiety CAD (coronary artery disease) s/p approx 10 stents thru 11/2020 Cerebral cyst L hemisphere; has previously followed with Dr. Jones Cervical spine pain 2013 MRI cervical spine showed some right-sided neuroforaminal stenosis C3-4 and C4-5. Previously evaluated by Dr. Peggy Jones (neurosurgery) and treated conservatively with PT. Modest symptoms as of 2017 Episodic lightheadedness 2004 especially exposed to heat & exertion; dizziness/ lightheadedness GERD (gastroesophageal reflux disease) HLD (hyperlipidemia) HTN (hypertension) [place] (myocardial infarction) (HCC) october 2000 TMJ (temporomandibular joint disorder) symptoms resolved with mouth guard - treated by dentist Past Surgical History: Procedure Laterality Date ANKLE FRACTURE SURGERY Right APPENDECTOMY CARDIAC CATHETERIZATION numerous COLONOSCOPY N/A 07/20/2018 Procedure: COLONOSCOPY; Surgeon: Enrrique Arias MD; Location: [facility] OR; Service: General Surgery CORONARY STENT PLACEMENT [facility] has about 10 stents - most recent 11/2020 at [facility] ESOPHAGOGASTRODUODENOSCOPY many years ago HARDWARE REMOVAL ANKLE Right NASAL SINUS SURGERY 2012 Yanira Kaur MD surgeon REPAIR HERNIA INGUINAL ROBOTIC XI Right 02/11/2019 Procedure: REPAIR HERNIA INGUINAL ROBOTIC XI; Surgeon: Enrrique Arias MD; Location: [facility] OR; Service: Gen-Robotics Family History Problem Relation Age of Onset Dementia Mother Heart disease Brother Heart disease Maternal Uncle Diabetes Maternal Uncle Rectal cancer Father Alcohol use: (0.6 oz pure alcohol = 1 beer or 6 oz = 10 beers) Patient reports no history of alcohol use. Tobacco Use: Patient reports that he quit smoking about 34 years ago. He smoked 0.00 packs per day. He has never used smokeless tobacco. Street Drug Use: Patient reports no history of drug use. Allergies: Atorvastatin and Penicillins Medications: Outpatient Medications Marked as Taking for the 03/12/21 encounter (Office Visit) with Stevie Llanos MD Medication Sig amLODIPine (NORVASC) 10 MG tablet Take 10 mg by mouth daily. aspirin 81 mg chewable tablet Chew and Swallow 81 mg daily . clopidogreL (Plavix) 75 mg tablet Take 75 mg by mouth daily . escitalopram oxalate (LEXAPRO) 10 MG tablet Take 10 mg by mouth daily. evolocumab (Repatha Syringe) 140 mg/mL Syrg Inject under the skin every 14 (fourteen) days . lisinopril (PRINIVIL,ZESTRIL) 10 MG tablet Take 10 mg by mouth daily. metoprolol succinate (TOPROL-XL) 25 MG 24 hr tablet Take 25 mg by mouth daily. OBJECTIVE: Physical Examination: BP 126/68 Pulse (!) 59 Ht 5' 6 Wt 79.4 kg (175 lb) BMI 28.25 kg/m WHITE: DNFC: Does Not Follow Commands BEN: Unable to Assess GENERAL: General Appearance: In NAD and otherwise well, non-toxic appearing Eyes: See pupils below Ears: See hearing below Neck: Supple Respiratory Effort: Normal Extremities: No edema Skin: No rashes visualized MENTAL STATUS: Alertness, Attention Span & Concentration: Normal Language: Normal Speech: Normal Orientation: Normal Memory, Recent & Remote: Normal Fund of Knowledge: Normal CRANIAL NERVES: II - Visual Griffith: Normal II, III - Pupils: PERRL III, IV, - Eye Movements: Normal (EOMI, no ptosis, no nystagmus) V - Facial Sensation: Normal VII - Face Symmetry and Strength: Normal VIII - Hearing: Normal IX, X - Palate: Normal XI - Shoulder Shrug: Normal XII - Tongue Protrusion: Normal GAIT: Normal Gait Aid Used During Exam: None Gait Assistance Required During Exam: None STANCE: Normal COORDINATION & GROSS MOTOR: Abnormal Movements: None Coordination Ehoeyu-az-Jikt: Normal Coordination: Pnap-Gbhe-Oeyw:Normal Rapid Alternating Movements: Normal Drift: None Tone: Normal Bulk: Normal MOTOR - MUSCLE STRENGTH: Muscle Strength Right Left 5 Shoulder Abduction (Deltoid) 5 5 Elbow Flexion (Biceps) 5 5 Elbow Extension (Triceps) 5 5 Finger Abduction (Interossei) 5 5 Hip Flexion (Iliopsoas) 5 5 Knee Extension (Quads) 5 5 Knee Flexion (Hamstrings) 5 5 Dorsiflexion (Anterior Tibialis) 5 MOTOR WHITE: 5 Normal (Normal Power) 4 Mild Weakness (Movement against moderate resistance over a full range of motion) 3 Moderate Weakness (Movement against gravity over almost full range of motion) 2 Severe Weakness (Movement with gravity eliminated over almost full range of motion) 1 Trace Movement (flicker of contraction visible or palpable) 0 No Movement (No contraction visible or palpable) BEN Unable to Assess REFLEXES: Right Reflexes Left 2+ Biceps 2+ 2+ Triceps 2+ 2+ Brachioradialis 2+ 2+ Patellar 2+ 2+ Achilles 2+ Down Plantar Response (Babinski) Down REFLEXES WHITE: 4+ Sustained Clonus 3+ Brisk 2+ Normal 1+ Diminished 0 Absent BEN Unable to Assess SENSATION: Pinprick: Normal Proprioception: Normal documented in this encounter [facility] 03-12-2021 Miscellaneous Notes Associated Problem(s): Cerebral cyst First noted on imaging . L hemisphere cerebral cyst, likely congenital; has previously followed with Dr. Jones. 2017 CT head from [facility] showed that cyst had decreased in size compared to films from 2003. Repeat MRI head Consider referral to Neurosurgery as needed. Associated Problem(s): Spell of change in speech Onset 2003. Brief transient word finding difficulties typically clears out the word he needs after a few seconds. Occurs a few times per week. Somewhat more notable since June 2020. Does NOT have any loss of consciousness, impaired level of consciousness, impaired ability to interact with the environment or convulsion. Should be noted that remotely had some syncopal episodes with variable memory gaps those have long since faded. Does have separate dizziness and lightheadedness episodes such as on standing but the dizziness/lightheadedness does not occur with the word finding difficulties. [address] head imaging shows cerebral cyst unchanged. 03/2021 neurologic examination unrevealing. Ultimately I recommend evaluation for possible simple partial seizure versus age-related slight cognitive difficulties as well as less likely possibility of artery to artery TIA. MRI head compare to previous imaging including CT EEG Carotid ultrasound Labs documented in this encounter [facility] 03-12-2021 Instructions Stevie Llanos MD - 03/12/2021 9:[address]/MRI films: Call your radiology department where you got your OLD MRI/CT done and ask them to create a copy of your OLD MRI/CT images on a CD/DVD. You must then go there and physically pick that the CD/DVD with the OLD MRI images. When you go for your NEW MRI scan, bring the OLD scans on CD/DVD and present them to the NEW imaging center so that they can make a COMPARISON to the NEW MRI films they will be performing. documented in this [facility] Diagnosis Cyst of brain- Primary Cerebral cysts [facility] Diagnosis Fatigue, unspecified type- Primary Spell of change in speech Cerebral cyst Cerebral cysts [facility] Diagnosis Brain mass Unspecified condition of brain [facility] Diagnosis Brain mass Unspecified condition of brain [facility]* Diagnosis Cerebral cyst- Primary Cerebral cysts Pre-op examination- Primary Benign neoplasm of brain, unspecified brain region (HCC) Coronary artery disease involving t[place] coronary artery of t[place]lina heart without angina pectoris Primary hypertension Unspecified essential hypertension Hyperlipidemia, unspecified hyperlipidemia type Brain mass Unspecified condition of brain [facility]* Diagnosis Cerebral cyst- Primary Cerebral cysts Pre-op examination- Primary Benign neoplasm of brain, unspecified brain region (HCC) Coronary artery disease involving t[place] coronary artery of [place] heart without angina pectoris Primary hypertension Unspecified essential hypertension Hyperlipidemia, unspecified hyperlipidemia type Brain mass Unspecified condition of brain [facility]* Diagnosis Cerebral cyst- Primary Cerebral cysts Pre-op examination- Primary Benign neoplasm of brain, unspecified brain region (HCC) Coronary artery disease involving t[place] coronary artery of [place] heart without angina pectoris Primary hypertension Unspecified essential hypertension Hyperlipidemia, unspecified hyperlipidemia type Brain mass Unspecified condition of brain [facility]* Diagnosis Pre-op examination- Primary Benign neoplasm of brain, unspecified brain region (HCC) Coronary artery disease involving t[place] coronary artery of t[place] heart without angina pectoris Primary hypertension Unspecified essential hypertension Hyperlipidemia, unspecified hyperlipidemia type [facility]* Diagnosis Post-op pain- Primary Other acute postoperative pain [facility]* Diagnosis Cerebral cyst- Primary Cerebral cysts [facility]* Diagnosis Cerebral cyst- Primary Cerebral cysts Other headache syndrome [facility] noteNo assessment information availableWPremier [facility] Work Phone: Evaluation note* Diagnosis Cerebral cyst Cerebral cysts Fatigue, unspecified type- Primary Spell of change in speech Cerebral cyst Cerebral cysts Cerebral cyst- Primary Cerebral cysts Other headache syndrome [facility]* Diagnosis Paroxysmal atrial fibrillation Atrial fibrillation [facility] Paroxysmal atrial fibrillation Atrial fibrillation [facility] Diagnosis Cerebral cyst Cerebral cysts Fatigue, unspecified type- Primary Spell of change in speech Cerebral cyst Cerebral cysts Cerebral cyst- Primary Cerebral cysts Cerebral cyst- Primary Cerebral cysts [facility]* Diagnosis Cerebral cyst Cerebral cysts Fatigue, unspecified type- Primary Spell of change in speech Cerebral cyst Cerebral cysts Cerebral cyst- Primary Cerebral cysts Cerebral cyst- Primary Cerebral cysts Cerebral cyst Cerebral cysts [facility] (n[facility]ative)No reason for referral information availableWPremier [facility] Work Phone: Reason for visit Narrative* Auth/Cert Specialty Diagnoses / Procedures Referred By Keara t Referred To Contact Diagnoses Paroxysmal atrial fibrillation Paroxysmal atrial fibrillation [I48.0] Procedures NC COMPRE EP EVAL ABLTJ ATR FIB PULM VEIN ISOLATION ABLATION SCHED INTERCARDIAC A-FIB TRANSEPTAL BY PULM VEIN ISOLATION W/EP EVAL ([id number]) Sunil Delacruz MD [address] [id number] Phone: tel: fax: [facility] [address] [place] [address] Referral ID Status Reason Start Date Expiration Date Visits Re quested Visits Authorized [id number] 1 1 [facility] N[facility]* Auth/Cert Specialty Diagnoses / Procedures Referred By Contac t Referred To Contact Diagnoses Paroxysmal atrial fibrillation Paroxysmal atrial fibrillation [I48.0] Procedures NC COMPRE EP EVAL ABLTJ ATR FIB PULM VEIN ISOLATION ABLATION SCHED INTERCARDIAC A-FIB TRANSEPTAL BY PULM VEIN ISOLATION W/EP EVAL ([id number]) Sunil Delacruz MD [address] [address] Phone: tel: fax: [facility] [address] [place] [address] Referral ID Status Reason Start Date Expiration Date Visits Re quested Visits Authorized [id number] 1 1 [facility] Assessments Diagnosis Cerebral cyst Cerebral cysts Diagnosis Essential hypertension- Primary Unspecified essential hypertension Right groin pain Abdominal pain, right lower quadrant Coronary artery disease, angina presence unspecified, unspecified vessel or lesion type, unspecified whether tazlina or transplanted heart Hx of heart artery stent Coagulopathy (HCC) Other and unspecified coagulation defects Encounter for screening colonoscopy Gastroesophageal reflux disease, esophagitis presence not specified Diagnosis Right groin pain- Primary Abdominal pain, right lower quadrant Diagnosis Right groin pain- Primary Abdominal pain, right lower quadrant Essential hypertension Unspecified essential hypertension Coronary artery disease, angina presence unspecified, unspecified vessel or lesion type, unspecified whether tazlina or transplanted heart Hx of heart artery stent Coagulopathy (HCC) Other and unspecified coagulation defects 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 Diagnosis Right groin pain- Primary Abdominal pain, right lower quadrant Right inguinal hernia Inguinal hernia without mention of obstruction or gangrene, unilateral or unspecified, (not specified as recurrent) Coronary artery disease, angina presence unspecified, unspecified vessel or lesion type, unspecified whether tazlina or transplanted heart Hx of heart artery stent 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 Essential hypertension Unspecified essential hypertension Diagnosis Right groin pain Abdominal pain, right lower quadrant Right inguinal hernia Inguinal hernia without mention of obstruction or gangrene, unilateral or unspecified, (not specified as recurrent) Coronary artery disease, angina presence unspecified, unspecified vessel or lesion type, unspecified whether tazlina or transplanted heart Hx of heart artery stent skilled nursing current use of anticoagulant Essential hypertension Unspecified essential hypertension Diagnosis Right groin pain Abdominal pain, right lower quadrant Right inguinal hernia Inguinal hernia without mention of obstruction or gangrene, unilateral or unspecified, (not specified as recurrent) Coronary artery disease, angina presence unspecified, unspecified vessel or lesion type, unspecified whether tazlina or transplanted heart Hx of heart artery stent skilled nursing current use of anticoagulant Essential hypertension Unspecified essential hypertension Diagnosis Post-op pain Other acute postoperative pain Right groin pain Abdominal pain, right lower quadrant Diagnosis Postop check Follow-up examination, following unspecified surgery Diagnosis Discomfort of right groin Reason for Referral Status Reason Specialty Diagnoses / Procedures Referred By Contact Referred To Contact Closed General Surgery Diagnoses Right groin pain Mary Busby MD [address] [facility] [address] [address] Enrrique Arias MD [address] [facility] [address] [place] [id number] Specialty Diagnoses / Procedures Referred By Contac t Referred To Contact Neurology Diagnoses Cyst of brain Mary Busby MD [address] [facility] [address] [place] [address] Stevie Llanos MD [address] [facility] [address] [place] [address] Referral ID Status Reason Start Date Expiration Date V isits Requested Visits Authorized [id number] Pending Review 01/09/2021 01/09/2022 1 1 Specialty Diagnoses / Procedures Referred By Contac t Referred To Contact Cardiology Diagnoses Spell of change in speech Fatigue, unspecified type Procedures Ultrasound doppler carotid Stevie Llanos MD [address] [facility] [address] [place] [address] Referral ID Status Reason Start Date Expiration Date V isits Requested Visits Authorized [id number] Authorized 03/12/2021 03/12/2022 1 1 Specialty Diagnoses / Procedures Referred By Contac t Referred To Contact Neurology Diagnoses Spell of change in speech Fatigue, unspecified type Procedures EEG (Standard) Stevie Llanos MD [address] [facility] [address] [place] [address] Referral ID Status Reason Start Date Expiration Date V isits Requested Visits Authorized [id number] Authorized 03/12/2021 03/12/2022 1 1 Specialty Diagnoses / Procedures Referred By Contac t Referred To Contact Radiology Diagnoses Spell of change in speech Fatigue, unspecified type Procedures MR Brain With And Without Contrast Stevie Llanos MD [address] [facility] [address] [place] [address] Referral ID Status Reason Start Date Expiration Date V isits Requested Visits Authorized [id number] New Request 03/12/2021 03/12/2022 1 1 Specialty Diagnoses / Procedures Referred By Contac t Referred To Contact Radiology Diagnoses Cerebral cyst Other headache syndrome Procedures CT Head Or Brain Without Contrast Peggy Jones MD [address] [facility] [address] [place] [address] Referral ID Status Reason Start Date Expiration Date V isits Requested Visits Authorized [id number] New Request 03/09/2023 03/08/2024 1 1 History of Present Illness * Enrrique Arias MD - 06/28/2018 3:01 PM EDT [facility] [id number] (11) [facility] [address] [facility] [address] Patient: Delmi Berger Age: 67 y.o. Race: [1] Chief Complaint: Chief Complaint Patient presents with Hernia SNOMED CT(R) 1. Essential hypertension ESSENTIAL HYPERTENSION 2. Right groin pain INGUINAL PAIN Ambulatory referral to General Surgery 3. Coronary artery disease, angina presence unspecified, unspecified vessel or lesion type, unspecified whether tazlina or transplanted heart CORONARY ARTERIOSCLEROSIS 4. Hx of heart artery stent HISTORY OF PLACEMENT OF STENT FOR CORONARY ARTERY DISEASE 5. Coagulopathy (HCC) BLOOD COAGULATION DISORDER 6. Encounter for screening colonoscopy SCREENING STATUS 7. Gastroesophageal reflux disease, esophagitis presence not specified GASTROESOPHAGEAL REFLUX DISEASE Date: 06/28/18 Physicians: Mary Busby MD (Family); Mary Busby MD (Referring) HPI: Patient is a 67-year-old white male who happens to [place] [facility] who began to havelower abdominal pain in the suprapubic location and right lower quadrant gained about a month ago. Patient states since then it has improved a great deal but it is not completely gone. He now points to the right groin as the point of greatest discomfort. He works out routinely noting that it is not aggravated by his weight lifting regimen. It hurts most when he is walking. He has never seen a bulge. He denies any urinary tract symptomatology specifically denying frequency, dysuria or hematuria. He knows of known prostatic pathology. Denies any unexplained unintentional weight loss. He does have a history of GERD for which he underwent EGD remotely but states that is markedly improved. He denies any family history of esophageal, gastric, pancreatic, liver or biliary tract malignancy YES NO [] [x] Change in bowel habits? [] [x] Constipation [] [x] Diarrhea? [] [x] Blood in stool? [] [x] Mucus in your stool? [] [x] Decrease in caliber of your stool? [] [x] Heme positive stool [] [x] Have you recently been diagnosed with anemia by your family doctor? [] [x] Do you have any family members with a history of Colon Cancer? Past Histories: Allergies: Penicillins Medication List Accurate as of 06/28/18 3:01 PM. If you have any questions, ask your nurse or doctor. CONTINUE taking these medications amLODIPine 10 MG tablet Commonly known as: NORVASC aspirin 81 MG EC tablet clopidogrel 75 mg tablet Commonly known as: PLAVIX escitalopram oxalate 10 MG tablet Commonly known as: LEXAPRO lisinopril 10 MG tablet Commonly known as: PRINIVIL,ZESTRIL metoprolol succinate 25 MG 24 hr tablet Commonly known as: TOPROL-XL REPATHA SYRINGE 140 mg/mL Syrg Generic drug: evolocumab Patient Active Problem List Diagnosis SNOMED CT(R) Cerebral cyst CEREBRAL CYST Right groin pain INGUINAL PAIN Essential hypertension ESSENTIAL HYPERTENSION Coronary artery disease CORONARY ARTERIOSCLEROSIS Hx of heart artery stent HISTORY OF PLACEMENT OF STENT FOR CORONARY ARTERY DISEASE Coagulopathy (HCC) BLOOD COAGULATION DISORDER Encounter for screening colonoscopy SCREENING STATUS Gastroesophageal reflux disease GASTROESOPHAGEAL REFLUX DISEASE Past Medical History: Diagnosis Date CAD (coronary artery disease) Cerebral cyst L hemisphere; has previously followed with Dr. Jones Cervical spine pain 2013 MRI cervical spine showed some right-sided neuroforaminal stenosis C3-4 and C4-5. Previously evaluated by Dr. Peggy Jones (neurosurgery) and treated conservatively with PT. Modest symptomsas of 2018 GERD (gastroesophageal reflux disease) HLD (hyperlipidemia) HTN (hypertension) [place] (myocardial infarction) (HCC) TMJ (temporomandibular joint disorder) symptoms resolved with mouth guard - treated by dentist Transient neurological symptoms remotely: any time exposed to heat & exertion; dizziness/ lightheadedness/ speech problems; previous extensive evaluations negative for other causes Past Surgical History: Procedure Laterality Date ANKLE FRACTURE SURGERY Right APPENDECTOMY CARDIAC CATHETERIZATION numerous CORONARY STENT PLACEMENT ESOPHAGOGASTRODUODENOSCOPY many years ago NASAL SINUS SURGERY 2012 Yanira Kaur MD surgeon Social History Socioeconomic History Marital status: Spouse name: Not on file Number of children: Not on file Years of education: Not on file Highest education level: Not on file Social Needs Financial resource strain: Not on file Food insecurity - worry: Not on file Food insecurity - inability: Not on file Transportation needs - medical: Not on file Transportation needs - non-medical: Not on file Occupational History Not on file Tobacco Use Smoking status: Former Smoker Last attempt to quit: 03/02/1987 Years since quittin.3 Smokeless tobacco: Never Used Substance and Sexual Activity Alcohol use: No Drug use: No Sexual activity: Not on file Other Topics Concern Not on file Social History Narrative Not on file REVIEW OF SYSTEMS Pertinent positives and negatives are listed in HPI, PMSH, SH, ALL above and in Details below. See scanned patient ROS questionnaire for specific details The following systems were reviewed: [x] Const (fevers, chills, wt. loss, fatigue) [x] CV (HTN, CP, NUNEZ, edema, DVT) [x] Resp (SOB, pleurisy, asthma, apnea) [x] GI (N, V, D, C, M, abd pain, appetite) [x] Musc (back pain, joint stiffness, gout) [x] Neuro (seizures, syncope, paralysis) [x] Psych (depression, anxiety) [x] Endo (hot/cold intol, polyuria[DM]) [x] Hem/Lymph (Anemia, LA, bleeding) [x] Allerg/Immun (seasonal, immuniz) [x] Eyes (diplopia, cataracts) [x] ENT/mouth (dysphagia, epistaxis) [x] (dysuria, hematuria) [x] Skin/Breast (moles, rash, lumps, nipple changes) Details: Data Unavailable Social History Tobacco Use Smoking Status Former Smoker Last attempt to quit: 03/02/1987 Years since quittin.3 Smokeless Tobacco Never Used Social History Substance and Sexual Activity Alcohol Use No Social History Substance and Sexual Activity Drug Use No Family History Problem Relation Age of Onset Dementia Mother Heart disease Brother Heart disease Maternal Uncle Diabetes Maternal Uncle Physical Exam: BP 134/77 Pulse 63 Temp 97.9 F (36.6 C) (Oral) Ht 5' 6 Wt 80.2 kg (176 lb 14.4 oz) SpO2 99% BMI 28.55 kg/m Body mass index is 28.55 kg/m . HEENT normocephalic atraumatic no scleral icterus pupils equal round reactive extraocular movementsare intact moist mucous membrane good dental occlusion. His tongue is midline neck supple trach is midline revealing no thyromegaly JVD bruits or masses. Chest bilateral breath sounds without wheezesor rales. Cor regular rate without murmur gallop or rub abdomen is soft nontender nondistended without peritoneal signs guarding rebound organomegaly or mass exam reveals normal external genitaliawithout overt hernia on either side however there is a very tender cleft in his right groin posterior inguinal canal right off the pubic symphysis without overt herniation through it. Testicles are equal without masses. Lymphatic exam negative supraclavicular cervical axillary lymphadenopathy. Is extremities show no gross clubbing cyanosis edema mottling or deformity. Neurologically he is alert oriented cranial nerves II through XII are intact with no focal motor or sensory deficits noted thereis a normal gait patient is well-balanced while walking Assessment: History of lower abdominal pain now centered in his right groin with pain as well tenderness and a cleft located in the medial right inguinal canal with no overt herniation at this time. Additionally he has hypertension, coronary disease status post multiple stents last placed in 2006 within the [facility] in [facility] resulting in him maintaining Plavix therapy. We had a long conversation regarding his therapeutic options at this point time me suggesting thathe seriously consider a colonoscopy. He consents. Advised to start ibuprofen or Aleve twice daily in the antrum we will reexamine him the time of his colonoscopy as well as [address] [facility] whether or not to surgically intervene going forward. Plan: At this point time we will schedule screening colonoscopy using routine MiraLAX bowel prep avoiding nonsteroidal anti-inflammatory agents and Plavix for a week prior to study. Risks complications and alternatives of been discussed at length with the patient understands and wishes to proceed SNOMED CT(R) 1. Essential hypertension ESSENTIAL HYPERTENSION 2. Right groin pain INGUINAL PAIN Ambulatory referral to General Surgery 3. Coronary artery disease, angina presence unspecified, unspecified vessel or lesion type, unspecified whether tazlina or transplanted heart CORONARY ARTERIOSCLEROSIS 4. Hx of heart artery stent HISTORY OF PLACEMENT OF STENT FOR CORONARY ARTERY DISEASE 5. Coagulopathy (HCC) BLOOD COAGULATION DISORDER 6. Encounter for screening colonoscopy SCREENING STATUS 7. Gastroesophageal reflux disease, esophagitis presence not specified GASTROESOPHAGEAL REFLUX DISEASE No orders of the defined types were placed in this encounter. Enrrique Arias MD documented in this encounter* Enrrique Arias MD - 08/04/2018 9:23 AM EDT [facility] PATIENT: Delmi Berger DATE / TIME: 08/04/18 9:23 AM POS: Office AGE: 68 y.o. : 1950 RACE: [1] SEX: male PCP: Mary Busby MD REFERRAL: No ref. provider found TOS: SNOMED CT(R) 1. Right groin pain INGUINAL PAIN ASSESSMENT: Ongoing right groin pain without overt hernia but a tender inguinal floor consistent with a groin strain. Had a long conversation with the patient regarding the so-called sports hernia.And have offered a conservative approach consisting of nonsteroidal anti-inflammatory agents twice daily avoiding exertional activity and lifting more than 10 pounds for the next 8 weeks versus exploration with a robotic assisted laparoscopic technique reinforcement of the area with mesh with me stressing as I cannot guarantee symptom relief. Additionally have advised him to lose 10 to 15 pound. Additionally I have offered him a chance to seek out a second opinion with a so-called sports hernia expert. PLAN: After our discussion he is elected to do the nonsteroidal conservative management approach. Iwant to follow-up with him in 3 months time. SUBJECTIVE: Patient continues to complain of pain in his right groin especially after activities such as this past week and when he was using a gardening tool with some exertion. OBJECTIVE: BP 126/72 Pulse 70 Temp 98.4 F (36.9 C) (Oral) Ht 5' 6 Wt 78.3 kg (172 lb 9.6 oz) SpO2 97% BMI 27.86 kg/m exam reveals a tender right floor without overt herniation left side is completely normal without herniation testicles are equal without masses. The floor is difficult to examine because it is so tender and he keeps pulling away when he is in the upright position. Laboratory and Additional Data Reviewed: Laboratory 08/04/18 9:23 AM Microbiology 08/04/18 9:23 AM Radiology 08/04/18 9:23 AM Medications 08/04/18 9:23 AM Lab Results Component Value Date WBC 5.20 11/26/2012 HGB 15.1 11/26/2012 HCT 43.9 11/26/2012 MCV 89.0 11/26/2012 PLT 182 11/26/2012 Lab Results Component Value Date GLUCOSE 97 11/26/2012 NA 139 11/26/2012 K 5.0 11/26/2012 CL 102 11/26/2012 BUN 15 11/26/2012 CREATININE 0.95 11/26/2012 No orders to display REVIEW OF SYSTEMS Pertinent positives and negatives are listed in HPI, PMSH, SH, ALL above and in Details below. See scanned patient ROS questionnaire for specific details The following systems were reviewed: [x] Const (fevers, chills, wt. loss, fatigue) [x] CV (HTN, CP, NUNEZ, edema, DVT) [x] Resp (SOB, pleurisy, asthma, apnea) [x] GI (N, V, D, C, M, abd pain, appetite) [x] Musc (back pain, joint stiffness, gout) [x] Neuro (seizures, syncope, paralysis) [x] Psych (depression, anxiety) [x] Endo (hot/cold intol, polyuria[DM]) [x] Hem/Lymph (Anemia, LA, bleeding) [x] Allerg/Immun (seasonal, immuniz) [x] Eyes (diplopia, cataracts) [x] ENT/mouth (dysphagia, epistaxis) [x] (dysuria, hematuria) [x] Skin/Breast (moles, rash, lumps, nipple changes) Details: Patient's Medications New Prescriptions No medications on file Previous Medications AMLODIPINE (NORVASC) 10 MG TABLET Take 10 mg by mouth daily. ASPIRIN 81 MG EC TABLET Take 81 mg by mouth daily. CIPROFLOXACIN HCL (CIPRO) 500 MG TABLET Take 500 mg by mouth every 12 (twelve) hours . CLOPIDOGREL (PLAVIX) 75 MG TABLET Take 75 mg by mouth daily. ESCITALOPRAM OXALATE (LEXAPRO) 10 MG TABLET Take 10 mg by mouth daily. LISINOPRIL (PRINIVIL,ZESTRIL) 10 MG TABLET Take 10 mg by mouth daily. METOPROLOL SUCCINATE (TOPROL-XL) 25 MG 24 HR TABLET Take 25 mg by mouth daily. REPATHA SYRINGE 140 MG/ML SYRG every 14 (fourteen) days . Modified Medications No medications on file Discontinued Medications No medications on file documented in this encounter* Enrrique Arias MD - 11/03/2018 12:08 PM EDT [facility] PATIENT: Delmi Berger DATE / TIME: 11/03/18 12:08 PM POS: Office AGE: 68 y.o. : 1950 RACE: [1] SEX: male PCP: Mary Busby MD REFERRAL: No ref. provider found TOS: 1. Right groin pain 2. Essential hypertension 3. Coronary artery disease, angina presence unspecified, unspecified vessel or lesion type, unspecified whether tazlina or transplanted heart 4. Hx of heart artery stent 5. 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 Without a long conversation regarding ongoing nonsurgical management versus the operative approaches of open repair with or without mesh versus robotic laparoscopic assisted techniques. All his questions were answered. We also addressed the use of mesh at length. At this point in time he is leaning toward surgical intervention given the way he is feeling at present but wants to wait until January. Hisfollow-up with me within 30 days of when he believes he will seek surgical intervention for his H&P. Additionally I have offered the opportunity to seek a second surgical opinion with a hernia specialist which he defers today. PLAN: Follow-up late December early January to arrange for robotic assisted laparoscopic ventral hernia repair SUBJECTIVE: Patient continues to complain of right groin pain especially with lifting and straining. He is going through periods of where it is calm and then I do something and it flares up again OBJECTIVE: BP 132/75 Pulse (!) 52 Temp 98.1 F (36.7 C) (Oral) Ht 5' 6 Wt 76.6 kg (168 lb 14.4 oz) SpO2 98% BMI 27.26 kg/m exam reveals bilateral normal testicles without masses with a tender right inguinal floor with alarge cleft but no herniation during Valsalva. Left groin is completely normal Laboratory and Additional Data Reviewed: Laboratory 11/03/18 12:08 PM Microbiology 11/03/18 12:08 PM Radiology 11/03/18 12:08 PM Medications 11/03/18 12:08 PM Lab Results Component Value Date WBC 5.20 11/26/2012 HGB 15.1 11/26/2012 HCT 43.9 11/26/2012 MCV 89.0 11/26/2012 PLT 182 11/26/2012 Lab Results Component Value Date GLUCOSE 97 11/26/2012 NA 139 11/26/2012 K 5.0 11/26/2012 CL 102 11/26/2012 BUN 15 11/26/2012 CREATININE 0.95 11/26/2012 No orders to display REVIEW OF SYSTEMS Pertinent positives and negatives are listed in HPI, PMSH, SH, ALL above and in Details below. See scanned patient ROS questionnaire for specific details The following systems were reviewed: [x] Const (fevers, chills, wt. loss, fatigue) [x] CV (HTN, CP, NUNEZ, edema, DVT) [x] Resp (SOB, pleurisy, asthma, apnea) [x] GI (N, V, D, C, M, abd pain, appetite) [x] Musc (back pain, joint stiffness, gout) [x] Neuro (seizures, syncope, paralysis) [x] Psych (depression, anxiety) [x] Endo (hot/cold intol, polyuria[DM]) [x] Hem/Lymph (Anemia, LA, bleeding) [x] Allerg/Immun (seasonal, immuniz) [x] Eyes (diplopia, cataracts) [x] ENT/mouth (dysphagia, epistaxis) [x] (dysuria, hematuria) [x] Skin/Breast (moles, rash, lumps, nipple changes) Details: Patient's Medications New Prescriptions No medications on file Previous Medications AMLODIPINE (NORVASC) 10 MG TABLET Take 10 mg by mouth daily. ASPIRIN 81 MG EC TABLET Take 81 mg by mouth daily. CLOPIDOGREL (PLAVIX) 75 MG TABLET Take 75 mg by mouth daily. ESCITALOPRAM OXALATE (LEXAPRO) 10 MG TABLET Take 10 mg by mouth daily. LISINOPRIL (PRINIVIL,ZESTRIL) 10 MG TABLET Take 10 mg by mouth daily. METOPROLOL SUCCINATE (TOPROL-XL) 25 MG 24 HR TABLET Take 25 mg by mouth daily. REPATHA SYRINGE 140 MG/ML SYRG every 14 (fourteen) days . Modified Medications No medications on file Discontinued Medications No medications on file documented in this encounter* Enrrique Arias MD - 01/12/2019 10:08 AM EST Patient: Delmi Berger Age: 68 y.o. Race: [1] Chief Complaint: No chief complaint on file. 1. Right groin pain 2. Right inguinal hernia 3. Coronary artery disease, angina presence unspecified, unspecified vessel or lesion type, unspecified whether tazlina or transplanted heart 4. 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 Essential hypertension Date: 01/12/19 Physicians: Mary Busby MD (Family); No ref. provider found (Referring) HPI: Patient is a 68-year-old white male with a history of hypertension coronary disease stent placement on chronic Plavix therapy has been dealing with severe right-sided groin pain and is been followed for what is thought to be a sports hernia. He states that times it to improve but then other times it really is bothering him and cites this morning when he went for a walk he was having quite a bit of discomfort with movement. We have previously discussed repair of his right sided inguinal sports hernia and he now wishes to proceed with that surgical intervention fully aware that it may not resolve his discomfort. Past Histories: Allergies: Penicillins Patient's Medications New Prescriptions No medications on file Previous Medications AMLODIPINE (NORVASC) 10 MG TABLET Take 10 mg by mouth daily. ASPIRIN 81 MG EC TABLET Take 81 mg by mouth daily . CLOPIDOGREL (PLAVIX) 75 MG TABLET Take 75 mg by mouth daily. ESCITALOPRAM OXALATE (LEXAPRO) 10 MG TABLET Take 10 mg by mouth daily. EVOLOCUMAB (REPATHA SYRINGE) 140 MG/ML SYRG Inject under the skin . LISINOPRIL (PRINIVIL,ZESTRIL) 10 MG TABLET Take 10 mg by mouth daily. METOPROLOL SUCCINATE (TOPROL-XL) 25 MG 24 HR TABLET Take 25 mg by mouth daily. Modified Medications No medications on file Discontinued Medications ASPIRIN 81 MG EC TABLET Take 81 mg by mouth daily. REPATHA SYRINGE 140 MG/ML SYRG every 14 (fourteen) days . 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 Jones Cervical spine pain 2013 MRI cervical spine showed some right-sided neuroforaminal stenosis C3-4 and C4-5. Previously evaluated by Dr. Peggy Jones (neurosurgery) and treated conservatively with PT. Modest symptomsas of 2017 GERD (gastroesophageal reflux disease) HLD (hyperlipidemia) HTN (hypertension) [place] (myocardial infarction) (HCC) october 2000 TMJ (temporomandibular joint disorder) symptoms resolved with mouth guard - treated by dentist Transient neurological symptoms remotely: any time exposed to heat & exertion; dizziness/ lightheadedness/ speech problems; previous extensive evaluations negative for other causes Past Surgical History: Procedure Laterality Date ANKLE FRACTURE SURGERY Right APPENDECTOMY CARDIAC CATHETERIZATION numerous COLONOSCOPY N/A 07/20/2018 Procedure: COLONOSCOPY; Surgeon: Enrrique Arias MD; Location: [facility] [place] OR; Service: General Surgery CORONARY STENT PLACEMENT ESOPHAGOGASTRODUODENOSCOPY many years ago NASAL SINUS SURGERY 2012 Yanira Kaur MD surgeon Social History Socioeconomic History Marital status: Spouse name: Not on file Number of children: Not on file Years of education: Not on file Highest education level: Not on file Occupational History Not on file Social Needs Financial resource strain: Not on file Food insecurity: Worry: Not on file Inability: Not on file Transportation needs: Medical: Not on file Non-medical: Not on file Tobacco Use Smoking status: Former Smoker Packs/day: 0.00 Last attempt to quit: 03/02/1987 Years since quittin.8 Smokeless tobacco: Never Used Substance and Sexual Activity Alcohol use: No Drug use: No Sexual activity: Not on file Lifestyle Physical activity: Days per week: Not on file Minutes per session: Not on file Stress: Not on file Relationships Social connections: Talks on phone: Not on file Gets together: Not on file Attends nondenominational service: Not on file Active member of club or organization: Not on file Attends meetings of clubs or organizations: Not on file Relationship status: Not on file Other Topics Concern Not on file Social History Narrative Not on file REVIEW OF SYSTEMS Pertinent positives and negatives are listed in HPI, PMSH, SH, ALL above and in Details below. See scanned patient ROS questionnaire for specific details The following systems were reviewed: [x] Const (fevers, chills, wt. loss, fatigue) [x] CV (HTN, CP, NUNEZ, edema, DVT) [x] Resp (SOB, pleurisy, asthma, apnea) [x] GI (N, V, D, C, M, abd pain, appetite) [x] Musc (back pain, joint stiffness, gout) [x] Neuro (seizures, syncope, paralysis) [x] Psych (depression, anxiety) [x] Endo (hot/cold intol, polyuria[DM]) [x] Hem/Lymph (Anemia, LA, bleeding) [x] Allerg/Immun (seasonal, immuniz) [x] Eyes (diplopia, cataracts) [x] ENT/mouth (dysphagia, epistaxis) [x] (dysuria, hematuria) [x] Skin/Breast (moles, rash, lumps, nipple changes) Details: Data Unavailable Social History Tobacco Use Smoking Status Former Smoker Packs/day: 0.00 Last attempt to quit: 03/02/1987 Years since quittin.8 Smokeless Tobacco Never Used Social History Substance and Sexual Activity Alcohol Use No Social History Substance and Sexual Activity Drug Use No Family History Problem Relation Age of Onset Dementia Mother Heart disease Brother Heart disease Maternal Uncle Diabetes Maternal Uncle Rectal cancer Father Physical Exam: BP 124/70 Pulse 67 Temp 97.9 F (36.6 C) (Oral) Ht 5' 6 Wt 78.5 kg (173 lb) SpO2 99% BMI 27.92 kg/m Body mass index is 27.92 kg/m . HEENT normocephalic atraumatic no scleral icterus pupils equal round reactive extraocular movementsare intact moist mucous membrane good dental occlusion tongue is midline. Neck is supple, trach is midline, no thyromegaly, JVD, bruits or masses are noted. Chest bilateral breath sounds without wheezes or rales. CV regular rate without murmur, gallop or rub. Abdomen is soft, nontender, nondistended without peritoneal signs, guarding, rebound, organomegaly or mass. exam reveals normal externalgenitalia without overt left-sided inguinal hernia however there is a large tender cleft in the right groin with which he has difficulty in cooperating with a thorough examination. I do believe I feel a slight bulge today.. Lymphatic exam is without supraclavicular, cervical, axillary or inguinal lymphadenopathy. Extremities show no gross clubbing, cyanosis, edema, mottling or deformity. Neurologically alert, oriented, cranial nerves II through XII are intact with no focal motor or sensory deficits noted. There is a normal gait patient is well-balanced while walking Assessment: Right groin pain with cleft discomfort and slight bulge consistent with a sports hernia. Once again we have had a long conversation regarding whether surgical intervention is indicated and I have offered him a chance to have a robotic assisted laparoscopic ventral hernia repair with mesh. We discussed the use of mesh and I have specifically addressed the current ads on TV at present. Additionally we have discussed surgical options of open versus laparoscopic versus robotic assisted laparoscopic repairs. As a result that we have agreed to proceed his follow: Plan: Schedule robotic assisted laparoscopic right inguinal hernia repair with mesh. We will have him hold his Plavix and also nonsteroidal anti-inflammatories for a week prior to surgery. We will schedule him appointment to see anesthesia get preoperative laboratory studies and EKGs. Given his penicillin allergy will use appropriate alternative antibiotic regimen. 1. Right groin pain 2. Right inguinal hernia 3. Coronary artery disease, angina presence unspecified, unspecified vessel or lesion type, unspecified whether tazlina or transplanted heart 4. 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 Essential hypertension No orders of the defined types were placed in this encounter. Enrrique Arias MD documented in this encounter* Enrrique Arias MD - 02/28/2019 2:03 PM EST Status post robotic assisted laparoscopic right inguinal hernia repair on February 11, 2019. Had multiple questions which have answered. I see no stigmata of infection or recurrence of his hernia. Heis to continue to avoid heavy lifting for another 4 weeks and follow-up with me in 2 months time documented in this encounter* Enrrique Arias MD - 04/05/2019 8:55 AM EST Patient follows up from his robotic assisted laparoscopic right inguinal hernia repair January. He still has a little bit of discomfort as little as the point he is not feeling better than he thought he should be. I told him to continue to pay attention to his discomfort avoid strenuous lifting begin to increase his activity going forward. I will recheck him in 3 months time documented in this encounter* Enrrique Arias MD - 09/20/2019 9:10 AM EDT [facility] PATIENT: Delmi Berger DATE / TIME: 09/20/19 9:10 AM POS: Office AGE: 69 y.o. : 1950 RACE: [1] SEX: male PCP: Mary Busby MD REFERRAL: No ref. provider found TOS: 1. Discomfort of right groin ASSESSMENT: Intermittent right groin discomfort following robotic assisted laparoscopic right inguinal hernia repair February 11, 2019 without overt or obvious recurrence of his hernia. He has been advised to avoid lifting much more than 20-25 pounds and attempt to lose a little bit of weight. Additionally he can use a nonsteroidal inflammatories such as ibuprofen, Aleve or Tylenol. PLAN: Follow-up with me as needed SUBJECTIVE: Patient status post robotic assisted laparoscopic right inguinal hernia repair 2018. His last appointment April 05, 2019 was still having discomfort and stated he was a little bit disappointed in that he was hoping that the preoperative discomfort would completely go away. He was advised how to handle this and to follow-up with me in 3 months time and he is now here forthat reevaluation. He states that only when he is lifting heavy objects or exerting himself does hefeel the discomfort otherwise he is doing pretty good. He actually points in his superior scrotum and off the right-sided pubic symphysis and not in his inguinal canal. OBJECTIVE: BP 126/78 Pulse 65 Ht 5' 6 Wt 74.9 kg (165 lb 1.6 oz) SpO2 97% BMI 26.65 kg/m Exam reveals no evidence of recurrence. Testicles are without masses and are nontender. Laboratory and Additional Data Reviewed: Laboratory 09/20/19 9:10 AM Microbiology 09/20/19 9:10 AM Radiology 09/20/19 9:10 AM Medications 09/20/19 9:10 AM Lab Results Component Value Date WBC 5.58 02/07/2019 HGB 14.4 02/07/2019 HCT 42.2 02/07/2019 MCV 88.7 02/07/2019 PLT 152 02/07/2019 Lab Results Component Value Date GLUCOSE 100 (H) 02/07/2019 CALCIUM 8.9 02/07/2019 NA 139 02/07/2019 K 4.4 02/07/2019 CL 106 02/07/2019 BUN 18 02/07/2019 CREATININE 1.22 02/07/2019 No orders to display REVIEW OF SYSTEMS Pertinent positives and negatives are listed in HPI, PMSH, SH, ALL above and in Details below. See scanned patient ROS questionnaire for specific details The following systems were reviewed: [x] Const (fevers, chills, wt. loss, fatigue) [x] CV (HTN, CP, NUNEZ, edema, DVT) [x] Resp (SOB, pleurisy, asthma, apnea) [x] GI (N, V, D, C, M, abd pain, appetite) [x] Musc (back pain, joint stiffness, gout) [x] Neuro (seizures, syncope, paralysis) [x] Psych (depression, anxiety) [x] Endo (hot/cold intol, polyuria[DM]) [x] Hem/Lymph (Anemia, LA, bleeding) [x] Allerg/Immun (seasonal, immuniz) [x] Eyes (diplopia, cataracts) [x] ENT/mouth (dysphagia, epistaxis) [x] (dysuria, hematuria) [x] Skin/Breast (moles, rash, lumps, nipple changes) Details: Patient's Medications New Prescriptions No medications on file Previous Medications AMLODIPINE (NORVASC) 10 MG TABLET Take 10 mg by mouth daily. ESCITALOPRAM OXALATE (LEXAPRO) 10 MG TABLET Take 10 mg by mouth daily. EVOLOCUMAB (REPATHA SYRINGE) 140 MG/ML SYRG Inject under the skin every 14 (fourteen) days . LISINOPRIL (PRINIVIL,ZESTRIL) 10 MG TABLET Take 10 mg by mouth daily. METOPROLOL SUCCINATE (TOPROL-XL) 25 MG 24 HR TABLET Take 25 mg by mouth daily. Modified Medications No medications on file Discontinued Medications No medications on file This note was created using [employer] voice recognition software and as such is prone to syntax and sound alike error which may escape my proofreading efforts. Please keep this in mind while reading andused judgment in terms of context while interpreting the note. documented in this encounter Advance Directives No Advanced Directives Records FoundDocuments on File Type Date Recorded Patient Vendor Manager Expl anation Advance Directives and Livin g Will 07/20/2018 8:20 AM Documents on File Type Date Recorded Patient Vendor Manager Expl anation Advance Directives and Livin g Will 02/07/2019 8:29 AM Documents on File Type Date Recorded Patient Vendor Manager Expl anation Advance Directives and Livin g Will 02/11/2019 5:38 AM Documents on File Type Date Recorded Patient Vendor Manager Expl anation Advance Directives and Livin g Will 02/11/2019 5:38 AM Documents on File Type Date Recorded Patient Vendor Manager Expl anation Advance Directives and Livin g Will 07/20/2018 8:20 AM Latest Code Status on File Code Status Date Activated Date Inactivated Comments Full Code - Unverified 03/20/2022 3:13 PM 03/22/2022 7:5 5 PM Latest Code Status on File Code Status Date Activated Date Inactivated Comments Full Code - Unverified 03/20/2022 3:13 PM 03/22/2022 7:5 5 PM Date Activated Date Inactivated Comments 03/20/2022 3:13 PM 03/22/2022 7:55 PM Date Activated Date Inactivated Comments 03/20/2022 3:13 PM 03/22/2022 7:55 PM Instructions * Patient Instructions* Chen Borjas, FRANNY - 02/07/2019 8:30 AM EST Preoperative Medication Instructions In preparation for surgery please continue all of your current medications with the following changes: Delmi Berger Home Medication Instructions Prior to Surgery KYLIE:[id number] Printed on:02/07/19 0902 Medication Information Take last dose on Take the morning of surgery Comment(s) amLODIPine (NORVASC) 10 MG tablet Take 10 mg by mouth daily. TAKE morning of surgery with sip of water aspirin 81 MG EC tablet Take 81 mg by mouth daily . Hold as directed by surgeon clopidogrel (PLAVIX) 75 mg tablet Take 75 mg by mouth daily. Hold as directed by surgeon escitalopram oxalate (LEXAPRO) 10 MG tablet Take 10 mg by mouth daily. evolocumab (Repatha Syringe) 140 mg/mL Syrg Inject under the skin every 14 (fourteen) days . lisinopril (PRINIVIL,ZESTRIL) 10 MG tablet Take 10 mg by mouth daily. metoprolol succinate (TOPROL-XL) 25 MG 24 hr tablet Take 25 mg by mouth daily. TAKE morning of surgery with sip of water STOP ( medications that contain aspirin, such as Ceci Trimble, Pepto-Bismol, Anacin), antiinflammatory medications such as Advil, Motrin, Ibuprofen, Naproxen, Aleve, Ceci Trimble, Pepto-Bismol, Anacin, Diclofenac, Voltaren, Daypro, Etodolac, Ketoprofen, Piroxicam, Relafen, Nabumetone, etc. Also disc ontinue Vitamin C, Vitamin E, [place]-3 Fatty Acid, Fish Oil or Lovaza, and all herbal medications ASDIRECTED BY SURGEON. Tylenol (acetaminophen) is acceptable(unless you have an allergy to this medication ), but be careful to follow the label directions and do not use with other pain medications. On the morning of surgery, with as little water as possible, ONLY take the medications listed abovein the column Take the morning of surgery. If you are using Eye Drops or Inhalers, please bring them to the hospital. Patient Instructions for [facility]: Prior to surgery: Surgeon's office will contact you with the scheduled time of your surgery. You may use the Field [employer] parking available at the Main Entrance One family member may accompany you back into the Pre-Op Area. Do not eat or drink anything after midnight or as directed, including gum, mints, and cough drops. No smoking after midnight. No alcohol 24 hours prior to your surgery. Please take any medications you have been instructed to take the morning of your surgery with smallsips of water. Please be sure to wear comfortable, appropriate clothing. Please remove all jewelry and piercing's, including wedding rings. Leave all valuable items at home. Shower using anti-bacterial soap or as advised by your Surgeon's office Do not apply any makeup or lotions. Remove all nail american for surgeries involving extremities. Please remember to bring both your insurance card and a photo ID with you on the day of surgery. After your surgery: If you are having outpatient surgery - you must have a licensed fire truck driver to take you home. The expectation is that this fire truck driver will remain at the hospital for the duration of your procedure. You are advised to have a family member with you for at least 24 hours after being under Anesthesia. If you have sleep apnea and have a CPAP/BIPAP device, please bring it with you the day of surgery. documented in this encounter Discharge Instructions * Instructions* Debora Lazar RN - 02/11/2019 GENERAL POST-OPERATIVE PATIENT INSTRUCTIONS ANESTHESIA PRECAUTIONS: A responsible adult must stay with you for at least 24 hours after surgery. You may feel light headed,, dizzy, or nauseated during this time. Do not operate a vehicle (car, bike, motorcycle, clipper machine) machinery or power tools. Do not make any important decisions or drink any alcoholic beverages for 24 hours. Children should remain quiet today. No riding of bicycles, motorcycles, skateboards, playing on swings etc. Drink plenty of fluids today. Eat light, small, frequent meals today. Resume regular diet tomorrow. FOLLOW-UP: Please make an appointment with your physician for follow-up. Call your physician immediately if you have any fevers greater than 101, drainage from your wound that is not clear or looks infected, persistent bleeding, increasing abdominal pain, problems urinating, or persistent nausea/vomiting. DIET: You may eat any foods that you can tolerate. It is a good idea to eat a high fiber diet and take in plenty of fluids to prevent constipation. If you do become constipated you may want to take amild laxative or take ducolax tablets on a daily basis until your bowel habits are regular. Constipation can be very uncomfortable, along with straining, after recent surgery. ACTIVITY: You are encouraged to cough and deep breathe or use your incentive spirometer if you weregiven one, every 15-30 minutes when awake. This will help prevent respiratory complications and lowgrade fevers post-operatively if you had a general anesthetic. You are encouraged to walk and engage in light activity for the next two weeks. MEDICATIONS: Try to take narcotic medications and anti-inflammatory medications, such as ibuprofen,naprosyn, etc., with food. This will minimize stomach upset from the medication. Should you developnausea and vomiting from the pain medication, or develop a rash, please discontinue the medication and contact your physician. You should not drive, make important decisions, or operate machinery when taking narcotic pain medication. Do not take tylenol or tylenol products with narcotic medications. QUESTIONS: Please feel free to call your physician or the hospital mixer operator vacuum pan salt if you have any questions, and they will be glad to assist you. documented in this encounter* Instructions* Karla Self RN - 07/20/2018 Discharge instructions reviewed, pre-printed instructions to patient documented in this encounter Summary Purpose Family History No Family History Records FoundNo Family History Records FoundNo Family History Records FoundNo Family History Records FoundNo Family History Records FoundNo Family History Records FoundNo Family History Records FoundNo Family History Records Found Chief Complaint and Reason for Visit Chief Complaint Admit Date PSA May 12, 2024 2:0 1pm Additional Source Comments Assessment & Plan Note - Stevie Llanos MD - 10/01/2017 4:23 PM EDTPre- Procedure Instructions - Toshia Roach RN - 02/07/2019 8:53 AM EST Miscellaneous Notes (unrecog nized section and content) Associated Problem(s): Cerebral cyst First noted on imaging . L hemisphere cerebral cyst, likely congenital; has previously followed with Dr. Jones. 2018 CT head from [facility] showed that cyst had decreased in size compared to films from 2004. Educated patient that I do not take care of structural brain lesions, brain mass, brain tumors, brain cysts -and that that follows under the specialty of neurosurgery. Recommended further evaluation and management by neurosurgery. Patient declines neurosurgery evaluation.in this encounter Preoperative Medication Instructions In preparation for surgery please continue all of your current medications with the following changes: Delmi Berger Home Medication Instructions Prior to Surgery KYLIE:[id number] Printed on:02/07/19 7926 Medication Information Take last dose on Take the morning of surgery Comment(s) amLODIPine (NORVASC) 10 MG tablet Take 10 mg by mouth daily. aspirin 81 MG EC tablet Take 81 mg by mouth daily . clopidogrel (PLAVIX) 75 mg tablet Take 75 mg by mouth daily. escitalopram oxalate (LEXAPRO) 10 MG tablet Take 10 mg by mouth daily. evolocumab (Repatha Syringe) 140 mg/mL Syrg Inject under the skin every 14 (fourteen) days . lisinopril (PRINIVIL,ZESTRIL) 10 MG tablet Take 10 mg by mouth daily. metoprolol succinate (TOPROL-XL) 25 MG 24 hr tablet Take 25 mg by mouth daily. STOP ( medications that contain aspirin, such as Ceci Trimble, Pepto-Bismol, Anacin), antiinflammatory medications such as Advil, Motrin, Ibuprofen, Naproxen, Aleve, Ceci Trimble, Pepto-Bismol, Anacin, Diclofenac, Voltaren, Daypro, Etodolac, Ketoprofen, Piroxicam, Relafen, Nabumetone, etc. Also discontinue Vitamin C, Vitamin E, [place]-3 Fatty Acid, Fish Oil or Lovaza, and all herbal medications DIRECTED BY SURGEON. Tylenol (acetaminophen) is acceptable(unless you have an allergy to this medication ), but be careful to follow the label directions and do not use with other pain medications. On the morning of surgery, with as little water as possible, ONLY take the medications listed above in the column Take the morning of surgery. If you are using Eye Drops or Inhalers, please bring them to the hospital. Patient Instructions for [facility]: Prior to surgery: Surgeon's office will contact you with the scheduled time of your surgery. You may use the [employer] parking available at the Main Entrance One family member may accompany you back into the Pre-Op Area. Do not eat or drink anything after midnight or as directed, including gum, mints, and cough drops. No smoking after midnight. No alcohol 24 hours prior to your surgery. Please take any medications you have been instructed to take the morning of your surgery with small sips of water. Please be sure to wear comfortable, appropriate clothing. Please remove all jewelry and piercing's, including wedding rings. Leave all valuable items at home. Shower using anti-bacterial soap or as advised by your Surgeon's office Do not apply any makeup or lotions. Remove all nail american for surgeries involving extremities. Please remember to bring both your insurance card and a photo ID with you on the day of surgery. After your surgery: If you are having outpatient surgery - you must have a licensed fire truck driver to take you home. The expectation is that this fire truck driver will remain at the hospital for the duration of your procedure. You are advised to have a family member with you for at least 24 hours after being under Anesthesia. If you have sleep apnea and have a CPAP/BIPAP device, please bring it with you the day of surgery. documented in this encounter DELMI BERGER YURIDIA [id number] 1950 DATE 02/11/2019 OPERATIVE REPORT SURGEON ENRRIQUE ARIAS MD, FACS PREOPERATIVE DIAGNOSIS Enlarging, symptomatic right inguinal hernia. POSTOP DIAGNOSIS Enlarging, symptomatic right indirect inguinal hernia. PROCEDURE Robotic-assisted laparoscopic right inguinal hernia repair with mesh (3D Max). ANESTHESIA General. ESTIMATED BLOOD LOSS 10 mL. COMPLICATIONS None apparent. DRAINS Intraoperative Pulido catheter. PROCEDURE IN DETAIL The patient was brought to the operating room, placed on the operating table in supine position. After satisfactory general anesthesia was induced, Pulido catheter was placed, and then the anterior abdominal wall prepped and draped in the usual sterile fashion. Next, using a #15 scalpel blade a supraumbilical incision was made just slightly above the umbilicus in the midline and dissection carried down the level of the fascia, which was divided and peritoneal cavity entered. A balloon-tipped disposable Leonardo was placed and insufflation begun. Inspection revealed adhesions from his previous right paramedian incision made for appendectomy, however, the left side of the abdomen was completely free of adhesions. With that, I accessed the left upper quadrant just off the midline with an 8 mm port and I carefully lyse adhesions, mostly omentum, a little bit of small bowel involving the right mid and lower abdomen. Once those were freed up, I did not believe there was any bowel injury, and then I could freely see the right upper quadrant and placed a second 8 mm port. With that, the robot was docked, and then the peritoneum inside from just above the ASIS to the midline and dissection carried down, reducing a right direct inguinal hernia sac exposing the conjoined tendon midline, and dissection was then carried out well into the retroperitoneum. With the dissection complete, a large 3DMax right- sided piece of mesh was placed into the space and then secured with 0 Ethibond sutures, securing it medially, superolaterally and medial superiorly. With the sutures in place, the mesh laid nice and flat. The peritoneum was closed with a running 2-0 V-Loc PDS suture overlapping it back on itself to secure it. With the peritoneal defect closed, a very careful inspection was made of the abdomen and no succus or injury to bowel could be identified, and with that the procedure terminated. Ports were removed. The fascia umbilicus was closed with 0 Vicryl sutures in the midline, and the skin closed with 4-0 Monocryl subcuticular skin closure and Exofin glue. ENRRIQUE ARIAS MD, FACS D 02/11/2019 09:18 [id number] T 02/11/2019 13:11 DED/MODL cc ENRRIQUE ARIAS MD, FACS : MARY BUSBY MD Dr. 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 [Z79.01] Essential hypertension [I10] Post-Operative Diagnoses: * Right groin pain [R10.31] * Right inguinal hernia [K40.90] * Coronary artery disease, angina presence unspecified, unspecified vessel or lesion type, unspecified whether tazlina or transplanted heart [I25.10] * Hx of heart artery stent [Z95.5] * skilled nursing current use of anticoagulant [Z79.01] * Essential hypertension [I10] Surgeon(s) and Role: * Enrrique Arias MD - Primary MANAGER MENTAL HEALTH: Izabela Barrera CRNA; Cosme Martínez CRNA Recycle Driver: Miriam Lainez RN; Natasha Parish CNP Scrub Person: Mary Beth Westbrook LPN [employer] DATA WAREHOUSE DEVELOPER: Akua Padilla RN Operative findings: right indirect inguinal hernia Intra and immediate post-operative complications: Type of anesthesia used: General Estimated blood loss: 5 mL Estimated urine output: 100 mL Specimen(s): * No specimens in log * Implant(s): Implant Name Type Inv. Item Serial No. Floral Manager Lot No. LRB No. Used Action MESH 4 X 6IN RT LG 3DMAX - SN/A Mesh MESH 4 X 6IN RT LG 3DMAX N/A [employer] [id number] Right 1 Implanted Drain(s): * No LDAs found * Wound(s): Wound 02/11/19 Surgical Wound Abdomen Right (Active) Enrrique Arias MD 02/11/2019 9:19 AM documented in this encounter Reason for Visit (unrecogniz ed section and content) Reason Comments Hernia Status Reason Specialty Diagnoses / Procedures Referred By Contact Referred To Contact Closed General Surgery Diagnoses Right groin pain Mary Busby MD [address] [facility] [address] [address] Enrrique Arias MD [address] [place] [id number] Reason Comments Follow-up also discuss hernia repair Reason Comments Follow-up Status Reason Specialty Diagnoses / Procedures Referre d By Contact Referred To Contact Diagnoses Right groin pain Right inguinal hernia Coronary artery disease, angina presence unspecified, unspecified vessel or lesion type, unspecified whether tazlina or transplanted heart Hx of heart artery stent 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 Essential hypertension Right groin pain [R10.31] Right inguinal hernia [K40.90] Coronary artery disease, angina presence unspecified, unspecified vessel or lesion type, unspecified whether tazlina or transplanted heart [I25.10] Hx of heart artery stent [Z95.5] 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 [Z79.01] Essential hypertension [I10] Procedures NC LAP,INGUINAL HERNIA REPR,INITIAL Enrrique Arias MD [address] [address] Reason Comments Post-op Status Reason Specialty Diagnoses / Procedures Referre d By Contact Referred To Contact Diagnoses Right groin pain Essential hypertension Coronary artery disease, angina presence unspecified, unspecified vessel or lesion type, unspecified whether tazlina or transplanted heart Hx of heart artery stent Coagulopathy (HCC) Encounter for screening colonoscopy Gastroesophageal reflux disease, esophagitis presence not specified Right groin pain [R10.31] Essential hypertension [I10] Coronary artery disease, angina presence unspecified, unspecified vessel or lesion type, unspecified whether tazlina or transplanted heart [I25.10] Hx of heart artery stent [Z95.5] Coagulopathy (HCC) [D68.9] Encounter for screening colonoscopy [Z12.11] Gastroesophageal reflux disease, esophagitis presence not specified [K21.9] Procedures colonoscopy Enrrique Arias MD [address] [address] Specialty Diagnoses / Procedures Referred By Keara garvey Referred To Contact Neurology Diagnoses Cyst of brain Mary Busby MD [address] [place] [address] Stevie Llanos MD [address] [place] [address] [address] [place] [address] Referral ID Status Reason Start Date Expiration Date Visits Re quested Visits Authorized [id number] Closed 01/09/2021 01/09/2022 1 1 Reason Comments Brain Tumor Specialty Diagnoses / Procedures Referred By Contac t Referred To Contact Neurosurgery Diagnoses Cerebral cyst Stevie Llanos MD [address] [place] [address] Peggy Jones MD [address] [place] [address] Referral ID Status Reason Start Date Expiration Date Visits Re quested Visits Authorized [id number] Closed 03/26/2021 03/26/2022 1 1 Reason Comments Pre-operative Medical Risk Stratificatio n Reason Onset Date Comments Medication Refill 03/28/2022 Reason Comments Follow-up OR PreOp - Chen Borjas CNP - 02/07/2019 8:30 AM EST OR Notes (unrecognized secti on and content) ANESTHESIA PREPROCEDURE EVALUATION Physical Exam Airway Mallampati: II TM Distance: >3 FB Neck ROM: limited Mouth opening: >[address]: no Cardiovascular Rhythm: regular Pulmonary Breath sounds are clear to auscultation Neurological Mental Status: alert Dental Review of Systems / Medical History - No history of anesthetic complications (TMJ (temporomandibular joint disorder) symptoms resolved with mouth guard - treated by dentist) Pulmonary - negative Neurological / Psychological Comment: Cerebral cyst L hemisphere; has previously followed with Dr. Jones Transient neurological symptoms remotely: any time exposed to heat & exertion; dizziness/ lightheadedness/ speech problems; previous extensive evaluations negative for other causes Cardiovascular Exercise tolerance: good Comment: EKG - Known RBBB Positive: hypertension past [place] (2010), CAD (SP PCI) hyperlipidemia Gastrointestinal / Hepatic / Renal Positive: GERD Endocrine / Musculoskeletal Comment: 2013 MRI cervical spine showed some right-sided neuroforaminal stenosis C3-4 and C4-5. Positive: arthritis Other Negative: smoker and substance abuse documented in this encounter Enrrique Arias MD - 02/11/2019 7:20 AM Enrrique Leong MD - 01/12/2019 10:08 AM Enrrique Leong MD - 07/20/2018 8:55 AM Enrrique Shaw MD - 06/28/2018 3:01 PM EDT H&P Notes (unrecognized sect ion and content) INTERVAL HISTORY AND PHYSICAL Patient Name: Delmi Berger Admit Date: 12120310 MR #: [id number] : 1950 The H&P has been reviewed and the patient has been examined. I concur with the findings of the H&P. There are no significant changes. It is appropriate to proceed with the planned procedure. Enrrique Arias MD 02/11/2019 7:20 AM Patient: Delmi Berger Age: 68 y.o. Race: [1] Chief Complaint: No chief complaint on file. 1. Right groin pain 2. Right inguinal hernia 3. Coronary artery disease, angina presence unspecified, unspecified vessel or lesion type, unspecified whether tazlina or transplanted heart 4. Hx of heart artery stent 5. skilled nursing current use of anticoagulant 6. Essential hypertension Date: 01/12/19 Physicians: Mary Busby MD (Family); No ref. provider found (Referring) HPI: Patient is a 68-year-old white male with a history of hypertension coronary disease stent placement on chronic Plavix therapy has been dealing with severe right-sided groin pain and is been followed for what is thought to be a sports hernia. He states that times it to improve but then other times it really is bothering him and cites this morning when he went for a walk he was having quite a bit of discomfort with movement. We have previously discussed repair of his right sided inguinal sports hernia and he now wishes to proceed with that surgical intervention fully aware that it may not resolve his discomfort. Past Histories: Allergies: Penicillins Patient's Medications New Prescriptions No medications on file Previous Medications AMLODIPINE (NORVASC) 10 MG TABLET Take 10 mg by mouth daily. ASPIRIN 81 MG EC TABLET Take 81 mg by mouth daily . CLOPIDOGREL (PLAVIX) 75 MG TABLET Take 75 mg by mouth daily. ESCITALOPRAM OXALATE (LEXAPRO) 10 MG TABLET Take 10 mg by mouth daily. EVOLOCUMAB (REPATHA SYRINGE) 140 MG/ML SYRG Inject under the skin . LISINOPRIL (PRINIVIL,ZESTRIL) 10 MG TABLET Take 10 mg by mouth daily. METOPROLOL SUCCINATE (TOPROL-XL) 25 MG 24 HR TABLET Take 25 mg by mouth daily. Modified Medications No medications on file Discontinued Medications ASPIRIN 81 MG EC TABLET Take 81 mg by mouth daily. REPATHA SYRINGE 140 MG/ML SYRG every 14 (fourteen) days . Patient Active Problem List Diagnosis Cerebral cyst Right groin pain Essential hypertension Coronary artery disease Hx of heart artery stent Coagulopathy (HCC) Encounter for screening colonoscopy Gastroesophageal reflux disease skilled nursing current use of anticoagulant Right inguinal hernia Past Medical History: Diagnosis Date CAD (coronary artery disease) Cerebral cyst L hemisphere; has previously followed with Dr. Jones Cervical spine pain 2013 MRI cervical spine showed some right-sided neuroforaminal stenosis C3-4 and C4-5. Previously evaluated by Dr. Peggy Jones (neurosurgery) and treated conservatively with PT. Modest symptoms as of 2017 GERD (gastroesophageal reflux disease) HLD (hyperlipidemia) HTN (hypertension) [place] (myocardial infarction) (HCC) october 2000 TMJ (temporomandibular joint disorder) symptoms resolved with mouth guard - treated by dentist Transient neurological symptoms remotely: any time exposed to heat & exertion; dizziness/ lightheadedness/ speech problems; previous extensive evaluations negative for other causes Past Surgical History: Procedure Laterality Date ANKLE FRACTURE SURGERY Right APPENDECTOMY CARDIAC CATHETERIZATION numerous COLONOSCOPY N/A 07/20/2018 Procedure: COLONOSCOPY; Surgeon: Enrrique Arias MD; Location: [facility] OR; Service: General Surgery CORONARY STENT PLACEMENT ESOPHAGOGASTRODUODENOSCOPY many years ago NASAL SINUS SURGERY 2012 Yanira Kaur MD surgeon Social History Socioeconomic History Marital status: Spouse name: Not on file Number of children: Not on file Years of education: Not on file Highest education level: Not on file Occupational History Not on file Social Needs Financial resource strain: Not on file Food insecurity: Worry: Not on file Inability: Not on file Transportation needs: Medical: Not on file Non-medical: Not on file Tobacco Use Smoking status: Former Smoker Packs/day: 0.00 Last attempt to quit: 03/02/1987 Years since quittin.8 Smokeless tobacco: Never Used Substance and Sexual Activity Alcohol use: No Drug use: No Sexual activity: Not on file Lifestyle Physical activity: Days per week: Not on file Minutes per session: Not on file Stress: Not on file Relationships Social connections: Talks on phone: Not on file Gets together: Not on file Attends nondenominational service: Not on file Active member of club or organization: Not on file Attends meetings of clubs or organizations: Not on file Relationship status: Not on file Other Topics Concern Not on file Social History Narrative Not on file REVIEW OF SYSTEMS Pertinent positives and negatives are listed in HPI, PMSH, SH, ALL above and in Details below. See scanned patient ROS questionnaire for specific details The following systems were reviewed: [x] Const (fevers, chills, wt. loss, fatigue) [x] CV (HTN, CP, NUNEZ, edema, DVT) [x] Resp (SOB, pleurisy, asthma, apnea) [x] GI (N, V, D, C, M, abd pain, appetite) [x] Musc (back pain, joint stiffness, gout) [x] Neuro (seizures, syncope, paralysis) [x] Psych (depression, anxiety) [x] Endo (hot/cold intol, polyuria[DM]) [x] Hem/Lymph (Anemia, LA, bleeding) [x] Allerg/Immun (seasonal, immuniz) [x] Eyes (diplopia, cataracts) [x] ENT/mouth (dysphagia, epistaxis) [x] (dysuria, hematuria) [x] Skin/Breast (moles, rash, lumps, nipple changes) Details: Data Unavailable Social History Tobacco Use Smoking Status Former Smoker Packs/day: 0.00 Last attempt to quit: 03/02/1987 Years since quittin.8 Smokeless Tobacco Never Used Social History Substance and Sexual Activity Alcohol Use No Social History Substance and Sexual Activity Drug Use No Family History Problem Relation Age of Onset Dementia Mother Heart disease Brother Heart disease Maternal Uncle Diabetes Maternal Uncle Rectal cancer Father Physical Exam: BP 124/70 Pulse 67 Temp 97.9 F (36.6 C) (Oral) Ht 5' 6 Wt 78.5 kg (173 lb) SpO2 99% BMI 27.92 kg/m Body mass index is 27.92 kg/m . HEENT normocephalic atraumatic no scleral icterus pupils equal round reactive extraocular movements are intact moist mucous membrane good dental occlusion tongue is midline. Neck is supple, trach is midline, no thyromegaly, JVD, bruits or masses are noted. Chest bilateral breath sounds without wheezes or rales. CV regular rate without murmur, gallop or rub. Abdomen is soft, nontender, nondistended without peritoneal signs, guarding, rebound, organomegaly or mass. exam reveals normal external genitalia without overt left-sided inguinal hernia however there is a large tender cleft in the right groin with which he has difficulty in cooperating with a thorough examination. I do believe I feel a slight bulge today.. Lymphatic exam is without supraclavicular, cervical, axillary or inguinal lymphadenopathy. Extremities show no gross clubbing, cyanosis, edema, mottling or deformity. Neurologically alert, oriented, cranial nerves II through XII are intact with no focal motor or sensory deficits noted. There is a normal gait patient is well-balanced while walking Assessment: Right groin pain with cleft discomfort and slight bulge consistent with a sports hernia. Once again we have had a long conversation regarding whether surgical intervention is indicated and I have offered him a chance to have a robotic assisted laparoscopic ventral hernia repair with mesh. We discussed the use of mesh and I have specifically addressed the current ads on TV at present. Additionally we have discussed surgical options of open versus laparoscopic versus robotic assisted laparoscopic repairs. As a result that we have agreed to proceed his follow: Plan: Schedule robotic assisted laparoscopic right inguinal hernia repair with mesh. We will have him hold his Plavix and also nonsteroidal anti-inflammatories for a week prior to surgery. We will schedule him appointment to see anesthesia get preoperative laboratory studies and EKGs. Given his penicillin allergy will use appropriate alternative antibiotic regimen. 1. Right groin pain 2. Right inguinal hernia 3. Coronary artery disease, angina presence unspecified, unspecified vessel or lesion type, unspecified whether tazlina or transplanted heart 4. Hx of heart artery stent 5. skilled nursing current use of anticoagulant 6. Essential hypertension No orders of the defined types were placed in this encounter. Enrrique Arias MD documented in this encounter INTERVAL HISTORY AND PHYSICAL Patient Name: Delmi Berger Admit Date: 5200310 MR #: [id number] : 1950 The H&P has been reviewed and the patient has been examined. I concur with the findings of the H&P. There are no significant changes. It is appropriate to proceed with the planned procedure. Enrrique Arias MD 07/20/2018 8:55 AM [facility] [address] (11) [facility] [address] [facility] [id number] Patient: Delmi Berger Age: 67 y.o. Race: [1] Chief Complaint: Chief Complaint Patient presents with Hernia SNOMED CT(R) 1. Essential hypertension ESSENTIAL HYPERTENSION 2. Right groin pain INGUINAL PAIN Ambulatory referral to General Surgery 3. Coronary artery disease, angina presence unspecified, unspecified vessel or lesion type, unspecified whether tazlina or transplanted heart CORONARY ARTERIOSCLEROSIS 4. Hx of heart artery stent HISTORY OF PLACEMENT OF STENT FOR CORONARY ARTERY DISEASE 5. Coagulopathy (HCC) BLOOD COAGULATION DISORDER 6. Encounter for screening colonoscopy SCREENING STATUS 7. Gastroesophageal reflux disease, esophagitis presence not specified GASTROESOPHAGEAL REFLUX DISEASE Date: 06/28/18 Physicians: Mary Busby MD (Family); Mary Busby MD (Referring) HPI: Patient is a 67-year-old white male who happens to live [place] of [facility] who began to have lower abdominal pain in the suprapubic location and right lower quadrant gained about a month ago. Patient states since then it has improved a great deal but it is not completely gone. He now points to the right groin as the point of greatest discomfort. He works out routinely noting that it is not aggravated by his weight lifting regimen. It hurts most when he is walking. He has never seen a bulge. He denies any urinary tract symptomatology specifically denying frequency, dysuria or hematuria. He knows of known prostatic pathology. Denies any unexplained unintentional weight loss. He does have a history of GERD for which he underwent EGD remotely but states that is markedly improved. He denies any family history of esophageal, gastric, pancreatic, liver or biliary tract malignancy YES NO [] [x] Change in bowel habits? [] [x] Constipation [] [x] Diarrhea? [] [x] Blood in stool? [] [x] Mucus in your stool? [] [x] Decrease in caliber of your stool? [] [x] Heme positive stool [] [x] Have you recently been diagnosed with anemia by your family doctor? [] [x] Do you have any family members with a history of Colon Cancer? Past Histories: Allergies: Penicillins Medication List Accurate as of 06/28/18 3:01 PM. If you have any questions, ask your nurse or doctor. CONTINUE taking these medications amLODIPine 10 MG tablet Commonly known as: NORVASC aspirin 81 MG EC tablet clopidogrel 75 mg tablet Commonly known as: PLAVIX escitalopram oxalate 10 MG tablet Commonly known as: LEXAPRO lisinopril 10 MG tablet Commonly known as: PRINIVIL,ZESTRIL metoprolol succinate 25 MG 24 hr tablet Commonly known as: TOPROL-XL REPATHA SYRINGE 140 mg/mL Syrg Generic drug: evolocumab Patient Active Problem List Diagnosis SNOMED CT(R) Cerebral cyst CEREBRAL CYST Right groin pain INGUINAL PAIN Essential hypertension ESSENTIAL HYPERTENSION Coronary artery disease CORONARY ARTERIOSCLEROSIS Hx of heart artery stent HISTORY OF PLACEMENT OF STENT FOR CORONARY ARTERY DISEASE Coagulopathy (HCC) BLOOD COAGULATION DISORDER Encounter for screening colonoscopy SCREENING STATUS Gastroesophageal reflux disease GASTROESOPHAGEAL REFLUX DISEASE Past Medical History: Diagnosis Date CAD (coronary artery disease) Cerebral cyst L hemisphere; has previously followed with Dr. Jones Cervical spine pain 2013 MRI cervical spine showed some right-sided neuroforaminal stenosis C3-4 and C4-5. Previously evaluated by Dr. Peggy Jones (neurosurgery) and treated conservatively with PT. Modest symptoms as of 2017 GERD (gastroesophageal reflux disease) HLD (hyperlipidemia) HTN (hypertension) [place] (myocardial infarction) (HCC) TMJ (temporomandibular joint disorder) symptoms resolved with mouth guard - treated by dentist Transient neurological symptoms remotely: any time exposed to heat & exertion; dizziness/ lightheadedness/ speech problems; previous extensive evaluations negative for other causes Past Surgical History: Procedure Laterality Date ANKLE FRACTURE SURGERY Right APPENDECTOMY CARDIAC CATHETERIZATION numerous CORONARY STENT PLACEMENT ESOPHAGOGASTRODUODENOSCOPY many years ago NASAL SINUS SURGERY 2012 Yanira Kaur MD surgeon Social History Socioeconomic History Marital status: Spouse name: Not on file Number of children: Not on file Years of education: Not on file Highest education level: Not on file Social Needs Financial resource strain: Not on file Food insecurity - worry: Not on file Food insecurity - inability: Not on file Transportation needs - medical: Not on file Transportation needs - non-medical: Not on file Occupational History Not on file Tobacco Use Smoking status: Former Smoker Last attempt to quit: 03/02/1987 Years since quittin.3 Smokeless tobacco: Never Used Substance and Sexual Activity Alcohol use: No Drug use: No Sexual activity: Not on file Other Topics Concern Not on file Social History Narrative Not on file REVIEW OF SYSTEMS Pertinent positives and negatives are listed in HPI, PMSH, SH, ALL above and in Details below. See scanned patient ROS questionnaire for specific details The following systems were reviewed: [x] Const (fevers, chills, wt. loss, fatigue) [x] CV (HTN, CP, NUNEZ, edema, DVT) [x] Resp (SOB, pleurisy, asthma, apnea) [x] GI (N, V, D, C, M, abd pain, appetite) [x] Musc (back pain, joint stiffness, gout) [x] Neuro (seizures, syncope, paralysis) [x] Psych (depression, anxiety) [x] Endo (hot/cold intol, polyuria[DM]) [x] Hem/Lymph (Anemia, LA, bleeding) [x] Allerg/Immun (seasonal, immuniz) [x] Eyes (diplopia, cataracts) [x] ENT/mouth (dysphagia, epistaxis) [x] (dysuria, hematuria) [x] Skin/Breast (moles, rash, lumps, nipple changes) Details: Data Unavailable Social History Tobacco Use Smoking Status Former Smoker Last attempt to quit: 03/02/1987 Years since quittin.3 Smokeless Tobacco Never Used Social History Substance and Sexual Activity Alcohol Use No Social History Substance and Sexual Activity Drug Use No Family History Problem Relation Age of Onset Dementia Mother Heart disease Brother Heart disease Maternal Uncle Diabetes Maternal Uncle Physical Exam: BP 134/77 Pulse 63 Temp 97.9 F (36.6 C) (Oral) Ht 5' 6 Wt 80.2 kg (176 lb 14.4 oz) SpO2 99% BMI 28.55 kg/m Body mass index is 28.55 kg/m . HEENT normocephalic atraumatic no scleral icterus pupils equal round reactive extraocular movements are intact moist mucous membrane good dental occlusion. His tongue is midline neck supple trach is midline revealing no thyromegaly JVD bruits or masses. Chest bilateral breath sounds without wheezes or rales. Cor regular rate without murmur gallop or rub abdomen is soft nontender nondistended without peritoneal signs guarding rebound organomegaly or mass exam reveals normal external genitalia without overt hernia on either side however there is a very tender cleft in his right groin posterior inguinal canal right off the pubic symphysis without overt herniation through it. Testicles are equal without masses. Lymphatic exam negative supraclavicular cervical axillary lymphadenopathy. Is extremities show no gross clubbing cyanosis edema mottling or deformity. Neurologically he is alert oriented cranial nerves II through XII are intact with no focal motor or sensory deficits noted there is a normal gait patient is well-balanced while walking Assessment: History of lower abdominal pain now centered in his right groin with pain as well tenderness and a cleft located in the medial right inguinal canal with no overt herniation at this time. Additionally he has hypertension, coronary disease status post multiple stents last placed in 2006 within the [facility] in [facility] resulting in him maintaining Plavix therapy. We had a long conversation regarding his therapeutic options at this point time me suggesting that he seriously consider a colonoscopy. He consents. Advised to start ibuprofen or Aleve twice daily in the antrum we will reexamine him the time of his colonoscopy as well as [address] to decide whether or not to surgically intervene going forward. Plan: At this point time we will schedule screening colonoscopy using routine MiraLAX bowel prep avoiding nonsteroidal anti-inflammatory agents and Plavix for a week prior to study. Risks complications and alternatives of been discussed at length with the patient understands and wishes to proceed SNOMED CT(R) 1. Essential hypertension ESSENTIAL HYPERTENSION 2. Right groin pain INGUINAL PAIN Ambulatory referral to General Surgery 3. Coronary artery disease, angina presence unspecified, unspecified vessel or lesion type, unspecified whether tazlina or transplanted heart CORONARY ARTERIOSCLEROSIS 4. Hx of heart artery stent HISTORY OF PLACEMENT OF STENT FOR CORONARY ARTERY DISEASE 5. Coagulopathy (HCC) BLOOD COAGULATION DISORDER 6. Encounter for screening colonoscopy SCREENING STATUS 7. Gastroesophageal reflux disease, esophagitis presence not specified GASTROESOPHAGEAL REFLUX DISEASE No orders of the defined types were placed in this encounter. Enrrique Arias MD documented in this encounter Brooke Lutz, RN - 07/20/2018 10:44 AM Trisha Muro RN - 07/20/2018 8:27 AM EDT Nursing Notes (unrecognized section and content) Passing flatus. No c/o voiced. Plans to be driven home by friend yanira documented in this encounter Care Teams (unrecognized sec tion and content) Nuclear Design Engineer Relationship Specialty Start Date End Date Mary Busby MD [address] [facility] [address] [address] PCP - General Family Medicine 07/20/17 Mary Busby MD [address] [address] Referring Physician Family Medicine 06/25/18 Nuclear Design Engineer Relationship Specialty Start Date End Date Sherwin Nichols MD [address] [phone] PCP - General Family Medicine 03/04/21 Mary Busby MD [address] [place] [address] Referring Physician Family Medicine 06/25/18 [facility] Bus[facility] MD [facility] [facility] [address] [place] [id number] Consulting Physician Family Medicine 03/04/21 Nuclear Design Engineer Relationship Specialty Start Date End Date Sherwin Nichols MD [address] [facility] [address] [place] [address] PCP - General Family Medicine 03/04/21 Mary Busby MD [address] [address] Referring Physician Family Medicine 06/25/18 Mary Busby MD [address] [facility] [address] [address] Consulting Physician Family Medicine 03/04/21 Nuclear Design Engineer Relationship Specialty Start Date End Date Sherwin Nichols MD [address] [place] [address] PCP - General Family Medicine 03/04/21 Mary Busby MD [address] [facility] [address] [address] Referring Physician Family Medicine 06/25/18 Mary Busby MD [address] [facility] [address] [address] Consulting Physician Family Medicine 03/04/21 Nuclear Design Engineer Relationship Specialty Start Date End Date Sherwin Nichols MD [address] [place] [address] PCP - General Family Medicine 03/04/21 Nuclear Design Engineer Relationship Specialty Start Date End Date Sherwin Nichols MD [address] [place] [address] PCP - General Family Medicine 03/04/21 Nuclear Design Engineer Relationship Specialty Start Date End Date Sherwin Nichols MD [address] [place] [address] PCP - General Family Medicine 03/04/21 Nuclear Design Engineer Relationship Specialty Start Date End Date Sherwin Nichols MD [address] [place] [address] PCP - General Family Medicine 03/04/21 Nuclear Design Engineer Relationship Specialty Start Date End Date Sherwin Nichols MD [address] [place], [place] [phone] PCP - General Family Medicine 03/04/21 Nuclear Design Engineer Relationship Specialty Start Date End Date Sherwin Nichols MD [address] [place] [address] PCP - General Family Medicine 03/04/21 Nuclear Design Engineer Relationship Specialty Start Date End Date Sherwin Nichols MD [address] [place] [address] PCP - General Family Medicine 03/04/21 Team Status: Active Member Role Status Dates MARY BUSBY Family Provider Active Dr. Sherwin Nichols MD Primary Care Provider Active Team Status: Inactive Member Role Status Dates Dr. Sherwin Nichols MD Primary Care Provider Active Start: April 25, 2024 End: April 25, 2024 Dr. Sherwin Nichols MD Attending Provider Active Start: April 25, 2024 End: April 25, 2024 Dr. Sherwin Nichols MD Referring Provider Active Start: April 25, 2024 End: April 25, 2024 Team Status: Inactive Member Role Status Dates Dr. Sherwin Nichols MD Primary Care Provider Active Start: May 12, 2024 End: May 12, 2024 Magalie Evans Attending Provider Active Start : May 12, 2024 End: May 12, 2024 Magalie Evans Referring Provider Active Start : May 12, 2024 End: May 12, 2024 Nuclear Design Engineer Relationship Specialty Start Date End Date Sherwin Nichols MD [address] [place], [place] [address] PCP - General Family Medicine 03/04/21 Nuclear Design Engineer Relationship Specialty Start Date End Date Sherwin Nichols MD [address] [place], [place] [address] PCP - General Family Medicine 03/04/21 Team Status: Inactive Member Role Status Dates Dr. Sherwin Nichols MD Primary Care Provider Active Start: June 07, 2024 End: June 07, 2024 Dr. Lenny Herndon MD Attending Provider Active Start: June 07, 2024 End: June 07, 2024 Dr. Lenny Herndon MD Referring Provider Active Start: June 07, 2024 End: June 07, 2024 Nuclear Design Engineer Relationship Specialty Start Date End Date Sherwin Nichols MD [address] [place] [address] PCP - General Family Medicine 06/28/24 Angelica Resendiz DO [address] [place] [address] Cardiovascular Disease 06/28/24 Nuclear Design Engineer Relationship Specialty Start Date End Date Sherwin Nichols MD [address] [place] [phone] PCP - General Family Medicine 06/28/24 Angelica Resendiz DO [address] [place] [address] Cardiovascular Disease 06/28/24 Nuclear Design Engineer Relationship Specialty Start Date End Date Sherwin Nichols MD [address] [place] [address] PCP - General Family Medicine 03/04/21 Angelica Resendiz DO [address] [place] [address] Consulting Physician Cardiology 07/05/24 Nuclear Design Engineer Relationship Specialty Start Date End Date Sherwin Nichols MD [address] [place] [address] PCP - General Family Medicine 03/04/21 Angelica Resendiz DO [address] [place] [address] Consulting Physician Cardiology 07/05/24 (unrecognized sect ion and content) No Status Records FoundNo Status Records FoundNo Status Records FoundNo Status Records FoundNo Status Records FoundNo Status Records FoundNo Status Records FoundNo Status Records Found INFORMATION SOURCE (unrecogn ized section and content) DATE CREATED AUTHOR 01/09/2021 [facility] DATE CREATED AUTHOR AUTHOR'S ORGANIZ ATION 05/19/2024 [facility] DATE CREATED AUTHOR AUTHOR'S ORGANIZ ATION 06/05/2024 [facility] DATE CREATED AUTHOR AUTHOR'S ORGANIZ ATION 07/11/2024 [facility] DATE CREATED AUTHOR AUTHOR'S ORGANIZ ATION 07/17/2024 [facility] DATE CREATED AUTHOR AUTHOR'S ORGANIZ ATION 08/03/2024 [facility] DATE CREATED AUTHOR AUTHOR'S ORGANIZ ATION 08/07/2024 [facility] DATE CREATED AUTHOR AUTHOR'S ORGANIZ ATION 08/11/2024 [facility] Goals (unrecognized section and content) Goals may be documented in a n alternate sectionGoals may be documented in an alternate sectionGoals may be documented in an alternate section Continuous Active and Recently Administ ered Medications (unrecognized section and content) Medication Order 07/03/2024 07/04/2024 07/05/2024 Sodium chloride 0.9% IV solution 500 mL Intravenous, at 10 mL/hr, CONTINUOUS, Starting on Thu07/05/24 at 0830, Until Thu07/05/24 at 1537, KVO fluids, start the morning of procedure., Pre-op/Pre-Proc 0830 (Canceled Entry - Provider: System Discharge - Comment: Automatically canceled at discontinue of medication order) No Frequency Medication Order 07/03/2024 07/04/2024 07/05/2024 Sodium chloride 0.9% IV solution 1 dose, Starting on Thu07/05/24 at 0608, Until Thu07/05/24 at 1537, Created by cabinet override 0630 (Canceled Entry - Provider: System Discharge - Comment: Automatically canceled at discontinue of medication order) FOR RECORDS PERTAINING TO PATIENTS WHO ARE OR HAVE BEEN ENROLLED IN A CHEMICAL DEPENDENCY/SUBSTANCEABUSE PROGRAM, SOME INFORMATION MAY BE OMITTED. This clinical summary was aggregated from multiple sources. Caution should be exercised in using it in the provision of clinical care. This summary normalizes information from multiple sources, and as a consequence, information in this document may materially change the coding, format and clinical context of patient data. In addition, data may be omitted in some cases. CLINICAL DECISIONS SHOULD BE BASED ON THE PRIMARY CLINICAL RECORDS. [email or web address] provides no warranty or guarantee of the accuracy or completeness of information in this document.
== END | disposition home or self-care (01) ==
LOC: MTRAD 16:04
PROVIDERS: PCP Family Medicine; Referring Provider Family Medicine; Visit Provider Family Medicine
DX: Z01.818 Encounter for other preprocedural examination (principal); I48.91 Unspecified atrial fibrillation
CPT/HCPCS: 36415; 71046; 80048; 85610; 85730

== ENCOUNTER → 2024-11-29 | Outpatient (CLI) | payer MEDICARE, SELFPAY ==
--- NOTE | 2024-11-29 18:40 | CT_ITS ---
PROCEDURE: SINUS/FACIAL BONE 11/29/2024 REASON FOR EXAM: CHRONIC SINUSITIS TECHNIQUE: Procedure Code: CTSI Modality: CT Procedure: SINUS/FACIAL BONE Coronal and Sagittal reconstruction series were provided. One or more dose reduction techniques were used (e.g., Automated exposure control, adjustment of the mA and/or kV according to patient size, use of iterative reconstruction technique). RADIATION DOSE SUMMARY: CTDlvol: 33.06 mGy DLP: 928.89 mGycm COMPARISON: None FINDINGS: Evidence of previous antrectomies between the ethmoid and maxillary sinuses. There is no significant mucosal thickening in any of the visualized paranasal sinuses. No nasal septal deviation, no zayra bullosa. No demonstrated fracture or suspicious osseous lesion. The mastoid air cells are clear. CT/Sinus/Facial Bone IMPRESSION: No mucosal thickening or air-fluid levels noted in the paranasal sinuses Previous antrectomies, ostiomeatal complexes are widely patent No fracture or suspicious osseous lesion Reading Location: [id number]
== END | disposition home or self-care (01) ==
LOC: CT 18:41
PROVIDERS: PCP Family Medicine; Visit Provider Otolaryngology
DX: J32.8 Other chronic sinusitis (principal)
CPT/HCPCS: 70486

== ENCOUNTER → 2024-12-20 | Outpatient (CLI) | payer MEDICARE, SELFPAY ==
[2024-12-20 10:51] LABS: PSA,Total- Diagnostic 9.03 ng/mL (0.00-4.00)
== END | disposition home or self-care (01) ==
LOC: LAB 09:02
PROVIDERS: PCP Family Medicine; Referring Provider Urology; Visit Provider Urology
DX: R97.20 Elevated prostate specific antigen [PSA] (principal)
CPT/HCPCS: 36415; 84153